=== PATIENT | female | born 1935 | race Caucasian/White ===

== ENCOUNTER 2017-03-10 19:45 | Emergency (ER) | payer MEDICARE ==
[~2017-03-10] VITALS: Ht 167.6 cm; Wt 67.4 kg
[~2017-03-10 19:45] MED LIST: LEVA1NEB19 INH
[2017-03-10 19:51] VITALS: Ht 167.6 cm; Wt 67.4 kg
[2017-03-10] MEDS ORDERED: SODIUM CHLORIDE 0.9% 1000ML 250 ML IV STA (20:40)
[2017-03-10] MEDS ORDERED: SODIUM CHLORIDE 0.9% 1000ML 1,000 ML IV STA (20:40)
[2017-03-10 21:11] LABS: BASO % 0.5 %; BASO ABS # 0.03 K/uL (0-0.2); COMPLETE YES; HEMATOCRIT 37.5 % (37-47); IG% 0.2 %; LYMPH % 31.1 %; LYMPH ABS # 1.84 K/uL (1.2-3.4); MEAN CELL VOLUME 86.6 fL (80-100); MEAN CORPUSCULAR HEMOGLOBIN 28.9 pg (25-34); MEAN CORPUSCULAR HGB CONC 33.3 g/dl (32-36); MEAN PLATELET VOLUME 9.7 fL (7.4-10.4); MONO % 9.5 %; NEUT % 58.7 %; PLATELET COUNT 194 K/uL (130-400); RED BLOOD COUNT 4.33 M/uL (4.2-5.4); WHITE BLOOD COUNT 5.92 K/uL (4.8-10.8)
--- NOTE | 2017-03-10 21:11 | DIAGNOSTIC IMAGING REPORT ---
CHEST ONE VIEW PORTABLE HISTORY: Atypical CHEST PAIN COMPARISON: Chest 09/12/2015. FINDINGS: The lungs are clear. Cardiac silhouette is normal in size. No pleural effusions. No pneumothorax. IMPRESSION: No acute process. Electronically signed by: Dmitri Serrato M.D. 03/10/2017 9:10 PM Dictated Date/Time: 03/10/2017 9:09 PM
[2017-03-10 21:25] LABS: INR 1.1 (0.9-1.1); PARTIAL THROMBOPLASTIN RATIO 1.2; PROTHROMBIN TIME (PATIENT) 11.8 SECONDS (9.0-12.0)
[2017-03-10 21:30] LABS: BUN/CREATININE RATIO 15.6 (10-20); CREATININE 0.91 mg/dl (0.60-1.20); POTASSIUM 4.1 mmol/L (3.5-5.1)
[2017-03-10 21:49] VITALS: TEMP 37.5
[2017-03-10 21:55] LABS: CALCIUM 8.3 mg/dl (8.5-10.1)
[2017-03-10 22:27] LABS: URINE APPEARANCE CLEAR (CLEAR); URINE BILIRUBIN NEG (NEG); URINE COLOR YELLOW; URINE NITRITE NEG (NEG); URINE SPECIFIC GRAVITY 1.011 (1.000-1.030); UROBILINOGEN NEG (NEG)
[2017-03-10 22:30] LABS: MANUAL MICROSCOPIC REQUIRED? NO; REVIEW REQ? NO
[2017-03-10 22:52] VITALS: BP 111/75; PULSE 93; O2SAT 95
--- NOTE | 2017-03-11 00:06 | EMERGENCY ROOM VISIT NOTE ---
History Report prepared by Dianne: Kylah Sanchez Under the Supervision of: Dr. Alli Nagy M.D. First contact with patient: 20:19 Chief Complaint: DIARRHEA Stated Complaint: DIARRHEA,FAST HEART BEAT, COLD History of Present Illness The patient is an 81 year old female who presents to the Emergency Room with complaints of persistent diarrhea starting 1 week ago. The history is given by the due to the patient's memory problems. A couple weeks ago she had nausea and vomiting for 1 week. That resolved, but she started having diarrhea. She has taken Maalox and Pepto Bismol to no significant relief. She has been having a fast heart rate in the morning along with a headache in the forehead. No headache or pain at present. 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 She denies any abdominal pain, melena, hematochezia, or cough. She did not notice any fever. She was on antibiotics several months ago for cough. She has not had any sick contacts. She has not had C diff before. Source of History: patient, spouse/significant other Onset: 1 week ago Position: other (global) Quality: other (diarrhea) Timing: other (persistent) Associated Symptoms: + headache, + nausea, + vomiting, No abdominal pain, No cough, No hematochezia, No melena Note: Pt has had fast heart rate, ulcer inside cheek. Review of Systems See HPI for pertinent positives & negatives. A total of 10 systems reviewed and were otherwise negative. Past Medical & Surgical Medical Problems: (1) abscess on colon (2) Bowel obstruction (3) Bowel obstruction (4) Shingles Surgical Problems: (1) H/O: hysterectomy (2) History of appendectomy (3) History of cataract surgery (4) History of cholecystectomy Old medical records were reviewed. Nurse's notes were reviewed and I agree with. History was primarily obtained from the . Bowel obstruction in the past Valvular heart disease Family History Gallbladder disease Seizures Social History Smoking Status: Former Smoker Alcohol Use: none Drug Use: none Marital Status: Housing Status: lives with significant other Occupation Status: retired Current/Historical Medications No Active Prescriptions or Reported Meds Allergies Coded Allergies: Hydromorphone (Unverified Adverse Reaction, Mild, 0, 03/10/17) confusion Morphine (Verified Adverse Reaction, Mild, HALUCINATES, 03/10/17) Physical Exam Vital Signs Date Time Temp Pulse Resp B/P Pulse Ox O2 Delivery O2 Flow Rate FiO2 03/10/17 22:52 93 16 111/75 95 Room Air 03/10/17 21:49 37.5 96 20 110/68 93 Room Air 03/10/17 19:51 38.5 94 18 132/60 95 Room Air Physical Exam General: Non ill appearing older female, no acute distress, answers questions appropriately, has baseline dementia, breathing comfortably on room air. Normal speech HEENT: Normal cephalic atraumatic. Pupils are equal round and reactive to light. Extraocular movements are intact. Oropharynx is pink with moist mucous membranes. No swelling of the mouth lips or tongue. Neck: Supple with a midline trachea. No meningeal signs or stiffness, no JVD or bruits. No Stridor. Chest: Clear to auscultation bilaterally. No wheezes or rhonchi. No increased work of breathing. Heart: regular rate and rhythm. 3/6 systolic murmur. Abdomen: Soft nontender, nondistended without rebound guarding or rigidity. Well healing surgical scar, no evidence of hernia, no redness or warmth. Extremities: No cyanosis clubbing or edema. No calf tenderness or assymetry Spine/Back. Non tender to palpation. No CVA tenderness Skin: Good turgor without rashes. Neurologic exam: Cranial nerves two through 12 are intact. Motor and sensation are intact and symmetrical throughout. Medical Decision & Procedures ER Provider Diagnostic Interpretation: X-ray results as stated below per interpretation by me and the radiologist: CHEST ONE VIEW PORTABLE HISTORY: Atypical CHEST PAIN COMPARISON: Chest 09/12/2015. FINDINGS: The lungs are clear. Cardiac silhouette is normal in size. No pleural effusions. No pneumothorax. IMPRESSION: No acute process. Electronically signed by: Dmitri Serrato M.D. 03/10/2017 9:10 PM Dictated Date/Time: 03/10/2017 9:09 PM Laboratory Results 03/10/17 20:55 Red Blood Count 4.33, Mean Corpuscular Volume 86.6, Mean Corpuscular Hemoglobin 28.9, Mean Corpuscular Hemoglobin Concent 33.3, Mean Platelet Volume 9.7, Neutrophils (%) (Auto) 58.7, Lymphocytes (%) (Auto) 31.1, Monocytes (%) (Auto) 9.5, Eosinophils (%) (Auto) 0.0, Basophils (%) (Auto) 0.5, Neutrophils # (Auto) 3.48, Lymphocytes # (Auto) 1.84, Monocytes # (Auto) 0.56, Eosinophils # (Auto) 0.00, Basophils # (Auto) 0.03 03/10/17 20:55 Test 03/10/17 20:55 03/10/17 21:07 03/10/17 21:09 03/10/17 22:10 White Blood Count 5.92 K/uL (4.8-10.8) Red Blood Count 4.33 M/uL (4.2-5.4) Hemoglobin 12.5 g/dL (12.0-16.0) Hematocrit 37.5 % (37-47) Mean Corpuscular Volume 86.6 fL (80-100) Mean Corpuscular Hemoglobin 28.9 pg (25-34) Mean Corpuscular Hemoglobin Concent 33.3 g/dl (32-36) Platelet Count 194 K/uL (130-400) Mean Platelet Volume 9.7 fL (7.4-10.4) Neutrophils (%) (Auto) 58.7 % Lymphocytes (%) (Auto) 31.1 % Monocytes (%) (Auto) 9.5 % Eosinophils (%) (Auto) 0.0 % Basophils (%) (Auto) 0.5 % Neutrophils # (Auto) 3.48 K/uL (1.4-6.5) Lymphocytes # (Auto) 1.84 K/uL (1.2-3.4) Monocytes # (Auto) 0.56 K/uL (0.11-0.59) Eosinophils # (Auto) 0.00 K/uL (0-0.5) Basophils # (Auto) 0.03 K/uL (0-0.2) RDW Standard Deviation 44.5 fL (36.4-46.3) RDW Coefficient of Variation 14.0 % (11.5-14.5) Immature Granulocyte % (Auto) 0.2 % Immature Granulocyte # (Auto) 0.01 K/uL (0.00-0.02) Prothrombin Time 11.8 SECONDS (9.0-12.0) Prothromb Time International Ratio 1.1 (0.9-1.1) Activated Partial Thromboplast Time 32.3 SECONDS (21.0-31.0) Partial Thromboplastin Ratio 1.2 Anion Gap 7.0 mmol/L (3-11) Est Creatinine Clear Calc Drug Dose 43.8 ml/min Estimated GFR () 67.6 Estimated GFR (Non- 58.3 BUN/Creatinine Ratio 15.6 (10-20) Calcium Level 8.3 mg/dl (8.5-10.1) Total Bilirubin 0.5 mg/dl (0.2-1) Direct Bilirubin 0.1 mg/dl (0-0.2) Aspartate Amino Transf (AST/SGOT) 41 U/L (15-37) Alanine Aminotransferase (ALT/SGPT) 34 U/L (12-78) Alkaline Phosphatase 150 U/L (45-117) Total Protein 7.2 gm/dl (6.4-8.2) Albumin 3.3 gm/dl (3.4-5.0) Lipase 200 U/L (73-393) Bedside Lactic Acid Venous 1.19 mmol/L (0.90-1.70) Bedside Troponin I 0.000 ng/ml (0-0.045) Urine Color YELLOW Urine Appearance CLEAR (CLEAR) Urine pH 7.0 (4.5-7.5) Urine Specific [place] 1.011 (1.000-1.030) Urine Protein NEG (NEG) Urine Glucose (UA) NEG (NEG) Urine Ketones NEG (NEG) Urine Occult Blood NEG (NEG) Urine Nitrite NEG (NEG) Urine Bilirubin NEG (NEG) Urine Urobilinogen NEG (NEG) Urine Leukocyte Esterase NEG (NEG) Laboratory studies as stated above per my review. Medications Administered Medications (Trade) Dose Ordered Sig/Priscilla Route Start Time Stop Time Status Last Admin Dose Admin Sodium Chloride 250 ml @ 999 mls/hr Q16M STAT IV 03/10/17 20:40 03/10/17 20:55 DC 03/10/17 20:40 999 MLS/HR Sodium Chloride (Nss 1000ml) 1,000 ml @ 100 mls/hr Q10H STAT IV 03/10/17 20:40 03/10/17 23:53 DC 03/10/17 20:40 100 MLS/HR ED Course 2028: Past medical records reviewed. The patient was evaluated in room B5, and a complete history and physical examination were performed. 2039: NSS 1000 ml @ 100 mls/hr IV, NSS 250 ml @ 999 mls/hr IV. 2126: I reevaluated the patient. She is resting comfortably. 2204: I reevaluated the patient. She states that she feels fine. She is asking to go home. I discussed the results with the patient and her . I offered admission, but both the patient and her declined admission. Case management are setting up an appointment for her tomorrow. I will discussed the the [facility]ist permaculture contractor. 2210: I discussed the patient's case with Dr. Haro, [facility]. She has been notified that the patient would not like to stay. She will write up a note for the patient's appointment with her PCP tomorrow regarding the visit today. 2249: Upon reevaluation, the patient is resting comfortably. I discussed the results and treatment plan with her and her . They verbalized agreement of the treatment plan. The patient was discharged home. Medical Decision Differentials include, but are not limited to; C diff, pneumonia, sepsis, UTI, endocarditis, electrolyte or metabolic abnormality. This patient comes in as described above. She was placed in room B5. She is here for treatment and evaluation diarrhea. It was noted she had a fever although the said as far as he no she has not had one at home. She looks well her abdomen is benign she's no focal complaints. IV access established is gently hydrated normal saline. Chest x-ray does not suggest congestive heart failure, pneumonia, or pneumothorax. Urinalysis does not suggest UTI with a culture pending. EKG does not suggest acute coronary syndrome or arrhythmia. She has no electrolyte or metabolic abnormalities. She has no white count or elevation of a lactic acid to suggest significant infection. I did order stool studies however despite being here for several hours she was unable to give a stool specimen. She looks well at may be this is more of a viral illnesses could possibly be C. difficile or a colitis. Her abdomen was completely benign and nontender, her only complaint has been diarrhea. I do not think is likely endocarditis however she does have a murmur although apparently it is old. Cultures have been obtained of her blood. I talked to the patient and her about admission for observation and they' re adamantly against this. She says he feels well and just wants to go home. Apparently she does not do well in the hospital. I think that it is reasonable to have close follow-up. I had her casey saw operator talked to the family and they' re going to get her in with her doctor tomorrow. I also talked to Dr. Haro the [facility] hospitalist and she is going to send note to the patient's Dr. Kamilah Partida as well to ensure the patient gets close follow-up and they follow -up on the cultures. I encouraged the patient and her return to the ER if: Worsening of symptoms, not acting like self, any new problems or concerns. They're happy with the plan and will be discharged. Consults Time Called: [phone] Consulting Physician: Dr. Haro, [facility] Returned Call: [phone] I discussed the patient's case with her. She has been notified that the patient would not like to stay. She will write up a note for the patient's appointment with her PCP tomorrow regarding the visit today. Impression Primary Impression: Diarrhea Additional Impression: Febrile illness Scribe Attestation The scribe's documentation has been prepared under my direction and personally reviewed by me in its entirety. I confirm that the note above accurately reflects all work, treatment, procedures, and medical decision making performed by me. Departure Information Dispostion Home / Self-Care Prescriptions No Active Prescriptions or Reported Meds Referrals Kamilah Partida M.D. (PCP) Forms HOME CARE DOCUMENTATION FORM, IMPORTANT VISIT INFORMATION, WORK / SCHOOL INSTRUCTIONS Patient Instructions My [facility] Additional Instructions Rest. Drink plenty of fluids. Return if: Worsening of symptoms, abdominal pain, not acting like self, persistent fever, any new problems or concerns. Follow-up with your doctor tomorrow for recheck. Problem Qualifiers
== END 2017-03-10 22:56 | disposition home or self-care (01) ==
LOC: C.EDB 19:46
DX: R19.7 Diarrhea, unspecified (principal); R50.9 Fever, unspecified; K56.60 Unspecified intestinal obstruction; Z86.19 Personal history of other infectious and parasitic diseases; Z90.710 Acquired absence of both cervix and uterus; Z90.49 Acquired absence of other specified parts of digestive tract; Z98.49 Cataract extraction status, unspecified eye; Z98.890 Other specified postprocedural states; Z87.891 Personal history of nicotine dependence; Z88.5 Allergy status to narcotic agent

== ENCOUNTER 2022-09-01 18:50 | Inpatient (IN) ==
--- NOTE | 2022-09-01 19:03 | Emergency Department Note ---
History of Present Illness General Chief complaint: Hip Pain Time Seen by Provider: 09/01/22 18:54 Source: patient, EMS (I did talk to the EMS provider) and old records reviewed Mode of arrival: ambulatory Limitations: no limitations History of Present Illness This patient is 87-year-old female with history of dementia had a witnessed grou nd-level fall she was walking with a walker and tripped. There is no head trauma or loss of conscious she laid on her right hip his right hip pain EMS did give her 50 mics of fentanyl and did not notice any shortening or rotation but that seems of helped her pain she denies any pain anywhere else. No recent illness known. No blood thinners. no reported syncope Home Medications Medication Instructions Recorded Confirmed Type levocetirizine 5 mg tablet (Xyzal) 5 mg PO DAILY #30 tabs 05/06/22 09/01/22 Rx lansoprazole 30 mg capsule,delayed 30 mg PO DAILY #90 caps 08/18/22 09/01/22 Rx release (Prevacid) Allergies Allergy/AdvReac Type Severity Reaction Status Date / Time hydromorphone AdvReac Mild 0 Unverified 09/01/22 19:28 morphine AdvReac Mild HALUCINATES Verified 09/01/22 19:28 Past Med/Surg History Medical History Allergic rhinitis Aortic valve stenosis Chronic kidney disease, stage 3 (moderate) Dementia Diabetes mellitus, type 2 Dyslipidemia GERD (gastroesophageal reflux disease) Irritable bowel syndrome with constipation Osteoarthritis Urinary incontinence Surgical History H/O hemorrhoidectomy H/O: hysterectomy History of appendectomy History of cataract surgery (2007) b/l eyes History of cholecystectomy History of colostomy reversal (2000) S/P colectomy (1997) secondary to perforation from divericulitis S/P repair of ventral hernia S/P tubal ligation Family History Father No problems noted. Mother Hypertension Stroke Dementia Brother Hypertension Diabetes Sister Diabetes Denies family history of Ovarian cancer Prostate cancer Myocardial infarction Breast cancer Colorectal cancer Social History Smoking Status: Former smoker Tobacco Type: Cigarettes packs per day: 0.5; Cigarettes Per Day: 6 cig/day; Second Hand Exposure: No; Hx Alcohol Use: Yes Alcohol type: other Hx Substance Use: No Preferred Language: Hebrew Communication Ability: Impaired Visual Impairment: No Limitations Hearing Ability: Normal Account General Manager Required: No Beliefs That Will Affect Care: Sabianism Sabianism Beliefs: alevism marital status: Current Living Situation: Spouse current occupational status: retired How many Children do You have: 2 Feels Safe at Home: Yes Diet Comment: regular caffeine: Yes during the past year weight has: remained stable Dental Care, Regularly: No Physical Activity Frequency: 3-4 Times per Week Seatbelt Use: always Sunscreen Use: No Assistive Devices: None Review of Systems A total of 10 systems reviewed and were otherwise negative Physical Exam Vital Signs Vital Signs - 24 hr 09/01/22 18:36 09/01/22 18:36 09/01/22 18:59 Temperature 36.8 C Temperature Source Oral Pulse Rate 80 77 Pulse Rate [Apical] 81 Pulse Rhythm Regular Regular Pulse Rhythm [Apical] Regular Pulse Strength Normal Pulse Strength [Apical] Normal Respiratory Rate 19 19 20 Respiratory Effort / Characteristics Non-Labored Non-Labored Respiratory Depth Normal Normal Respiratory Pattern Regular Regular Blood Pressure 170/98 H Blood Pressure [Right Arm] Blood Pressure Mean 122 Blood Pressure Mean [Right Arm] Blood Pressure Position Lying Blood Pressure Position [Right Arm] Pulse Oximetry 95 95 95 Oxygen Delivery Method Room Air Room Air Room Air Sepsis Recent Fever Within 48 Hours No Sepsis New/Unexplained Change in Mental Status N/A Sepsis Action Taken by Nursing No Action Required 09/01/22 20:36 Temperature Temperature Source Pulse Rate Pulse Rate [Apical] 95 H Pulse Rhythm Pulse Rhythm [Apical] Regular Pulse Strength Pulse Strength [Apical] Normal Respiratory Rate 19 Respiratory Effort / Characteristics Non-Labored Respiratory Depth Normal Respiratory Pattern Regular Blood Pressure Blood Pressure [Right Arm] 168/98 H Blood Pressure Mean Blood Pressure Mean [Right Arm] 121 Blood Pressure Position Blood Pressure Position [Right Arm] Lying Pulse Oximetry 96 Oxygen Delivery Method Room Air Sepsis Recent Fever Within 48 Hours Sepsis New/Unexplained Change in Mental Status Sepsis Action Taken by Nursing General: Well developed well nourished older female who has baseline dementia and appears in no acute distress, breathing comfortably on room air. Normal speech HEENT: Normal cephalic atraumatic. Pupils are equal round and reactive to light. Extraocular movements are intact. Oropharynx is pink with moist mucous membranes. No swelling of the mouth lips or tongue. Neck: Supple with a midline trachea. No meningeal signs or stiffness, no JVD or bruits. No Stridor. Chest: Clear to auscultation bilaterally. No wheezes or rhonchi. No increased work of breathing. Heart: Regular rate and rhythm without murmurs or gallops. Abdomen: Soft nontender, nondistended without rebound guarding or rigidity. Extremities: No cyanosis clubbing or edema. No calf tenderness or assymetry. No shortening or deformity or rotation of the right hip. There is some tenderness when I move it and she points to the right lateral hip. Distally she has normal motor and sensation and pulses. There is no redness or warmth or bruising. Spine/Back. Non tender to palpation. No CVA tenderness Skin: Good turgor without rashes. Neurologic exam: Cranial nerves two through 12 are intact. Motor and sensation are intact and symmetrical throughout. Course Administered Medications Senna/Docusate Sodium (Docusate Sodium/Senna 50/8.6mg Tab) 2 tab PO HS REFUGIO Stop: 10/02/22 00:11 Last Admin: 09/02/22 01:07 Dose: 2 tab Documented By: GCB Discontinued Medications Acetaminophen (Ofirmev) 1,000 mg in 100 mls @ 400 mls/hr IV NOW STA Stop: 09/01/22 21:43 Last Infusion: 09/01/22 23:09 Dose: 0 mls/hr Documented By: Admin: 09/01/22 21:53 Dose: 400 mls/hr Documented By: FEDERICO Lorazepam 0.5 mg/ Syringe 0.5 mls @ 2 mls/min IV NOW STA Stop: 09/02/22 00:59 Last Admin: 09/02/22 01:06 Dose: 2 mls/min Documented By: MARCIO Ketorolac Tromethamine (Ketorolac Tromethamine 15 Mg/Ml Vial) 10 mg IV NOW ONE Stop: 09/01/22 19:28 Last Admin: 09/01/22 19:40 Dose: 10 mg Documented By: RDD Lorazepam (Lorazepam 1 Mg/1 Ml Syr) 0.5 mg IV NOW STA; Protocol Stop: 09/01/22 19:46 Last Admin: 09/01/22 19:48 Dose: 0.5 mg Documented By: FEDERICO Tramadol HCl (Tramadol Hcl 50 Mg Tablet) 50 mg PO NOW STA Stop: 09/01/22 21:30 Last Admin: 09/01/22 21:53 Dose: 50 mg Documented By: FEDERICO Medical Decision Making Differential Diagnosis Hip fracture, hip dislocation, contusion, fall, electrolyte or metabolic abnormality, cardiac disease Medical Records Attestation: I reviewed the patient's medical records. Home Medications Current Medication List: was personally reviewed by me Laboratory Data Attestation: I reviewed the patient's lab results. Result diagrams: 09/01/22 19:04 09/01/22 19:04 Lab Results 09/01/22 09/01/22 09/01/22 Range/Units 19:04 19:04 19:04 WBC 8.51 (4.8-10.8) K/ul RBC 4.74 (3.93-5.22) M/uL Hgb 13.5 (12.0-16.0) g/dl Hct 42.2 (34.1-44.9) % MCV 89.0 (80.0-100.0) fL MCH 28.5 (25.0-34.0) pg MCHC 32.0 (32.0-36.0) g/dL RDW Std Deviation 44.1 (36.4-46.3) fL RDW Coeff of Bhaskar 13.5 (11.5-14.5) % Plt Count 212 (130-400) K/uL MPV 10.1 (9.4-12.3) fL Immature Gran % (Auto) 0.5 % Neut % (Auto) 66.3 % Lymph % (Auto) 24.1 % [place] % (Auto) 7.8 % Eos % (Auto) 0.6 % Baso % (Auto) 0.7 % Neut # (Auto) 5.65 (1.4-6.5) K/uL Lymph # (Auto) 2.05 (1.2-3.4) K/uL [place] # (Auto) 0.66 (0.24-0.82) K/uL Eos # (Auto) 0.05 (0-0.50) K/uL Baso # (Auto) 0.06 (0-0.2) K/uL Immature Gran # (Auto) 0.04 H (0.00-0.02) K/uL PT 10.9 (9.0-12.0) Seconds INR 1.0 (0.9-1.1) APTT 26.4 (21.0-31.0) Seconds PTT Ratio 1.0 Sodium 135 L (136-145) mmol/L Potassium 4.0 (3.5-5.1) mmol/L Chloride 100 (98-107) mmol/L Carbon Dioxide 30 (21-32) mmol/L Anion Gap 5 (3-11) BUN 15 (6-23) mg/dl Creatinine 0.96 (0.6-1.2) mg/dl Est Cr Clr Drug Dosing Not Reportable Est GFR ( Amer) 60.8 ml/min Est GFR (Non-Af Amer) 52.4 ml/min BUN/Creatinine Ratio 15.6 (10-20) Glucose 196 H (70-99(Fasting)) mg/dl Calcium 8.8 (8.5-10.1) mg/dl Total Bilirubin 0.5 (0.2-1.0) mg/dl AST 23 (13-39) U/L ALT 14 (7-52) U/L Alkaline Phosphatase 159 H (34-104) U/L Troponin I High Sens 13.9 (0-14) pg/ml Total Protein 7.4 (6.0-8.3) gm/dl Albumin 3.8 (3.4-5.0) gm/dl Globulin 3.6 (2.5-4.0) gm/dl Albumin/Globulin Ratio 1.1 (0.9-2) Lipase 28 (11-82) U/L SARS-CoV-2, RNA, NAAT (NEGATIVE) 09/01/22 Range/Units 20:49 WBC (4.8-10.8) K/ul RBC (3.93-5.22) M/uL Hgb (12.0-16.0) g/dl Hct (34.1-44.9) % MCV (80.0-100.0) fL MCH (25.0-34.0) pg MCHC (32.0-36.0) g/dL RDW Std Deviation (36.4-46.3) fL RDW Coeff of Bhaskar (11.5-14.5) % Plt Count (130-400) K/uL MPV (9.4-12.3) fL Immature Gran % (Auto) % Neut % (Auto) % Lymph % (Auto) % [place] % (Auto) % Eos % (Auto) % Baso % (Auto) % Neut # (Auto) (1.4-6.5) K/uL Lymph # (Auto) (1.2-3.4) K/uL [place] # (Auto) (0.24-0.82) K/uL Eos # (Auto) (0-0.50) K/uL Baso # (Auto) (0-0.2) K/uL Immature Gran # (Auto) (0.00-0.02) K/uL PT (9.0-12.0) Seconds INR (0.9-1.1) APTT (21.0-31.0) Seconds PTT Ratio Sodium (136-145) mmol/L Potassium (3.5-5.1) mmol/L Chloride (98-107) mmol/L Carbon Dioxide (21-32) mmol/L Anion Gap (3-11) BUN (6-23) mg/dl Creatinine (0.6-1.2) mg/dl Est Cr Clr Drug Dosing Est GFR ( Amer) ml/min Est GFR (Non-Af Amer) ml/min BUN/Creatinine Ratio (10-20) Glucose (70-99(Fasting)) mg/dl Calcium (8.5-10.1) mg/dl Total Bilirubin (0.2-1.0) mg/dl AST (13-39) U/L ALT (7-52) U/L Alkaline Phosphatase (34-104) U/L Troponin I High Sens (0-14) pg/ml Total Protein (6.0-8.3) gm/dl Albumin (3.4-5.0) gm/dl Globulin (2.5-4.0) gm/dl Albumin/Globulin Ratio (0.9-2) Lipase (11-82) U/L SARS-CoV-2, RNA, NAAT NEGATIVE (NEGATIVE) Imaging Data Attestation: I personally reviewed and interpreted this imaging study as follows: My Impression: X-ray of the right hip and pelvis-there is an intertrochanteric right hip fracture that is minimal displaced Radiologist's Impression: Hip/Pelvis X-Ray 09/01/22 18:59 XR hip RT 2V w pelvis CLINICAL HISTORY: Right hip pain following fall. COMPARISON: CT of the abdomen and pelvis June 24, 2014. FINDINGS: Sacroiliac joints and symphysis pubis are intact. Postoperative findings within the pelvis are incidentally noted. There is an acute mildly distracted intertrochanteric fracture of the right femur. No additional acute fractures are identified on this exam. IMPRESSION: Acute mildly distracted intertrochanteric fracture of the right femur. ACT 112: Negative or not required by law. Electronically signed by: Malik Kim M.D. 09/01/2022 8:21 PM ECG Data Attestation: I personally reviewed and interpreted this ECG as follows: Indication: + weakness Rate (beats per minute): 69 Rhythm: + normal sinus ECG Intervals/blocks: + Normal QRS, + Normal QT and + Normal [place] ECG [place]: + Left axis deviation ECG ST segments: + Normal ST segments ECG Findings: no PACs or no PVCs Comparison ECG Date: from (09/12/15) Change: the following changes noted (PVCs are now absent) MDM Narrative This patient comes in as described above. She was placed on a radio control crane operator in room a 12. She was brought in by EMS after having what sounds like a mechanical fall. She has pain in the right hip is not shortened or deformed. I did order x-rays of the hip and pelvis, IV access was established, EKG was obtained and has no significant electrolyte metabolic abnormalities. COVID test was negative. The patient did become somewhat agitated was given small dose of Ativan 0.5 mg IV and was resting comfortably she will be admitted for further treatment evaluation of her hip fracture. I have consulted the [facility] hospitalist to see her for these measures. Continuous cardiac monitoring: Orders placed in EMR for continuous cardiac monitoring. Upon my interpretation patient noted to be in normal sinus rhythm at a rate of 85. Impression & Plan Closed hip fracture, Dementia, Fall, Lab test negative for COVID-19 virus Discharge Plan Visit Data Chief Complaint: Hip Pain ED Provider: Alli Nagy Discharge Problem: Closed hip fracture, Dementia, Fall, Lab test negative for COVID-19 virus Patient Disposition: Admitted As Inpatient Discharge Instructions Interventions: ED Discharge Assessment Last Done: 09/01/22 23:18
[2022-09-01 19:12] LABS: Basophils # (auto) 0.06 K/uL (0-0.2); Basophils % (auto) 0.7 %; Eosinophils # (auto) 0.05 K/uL (0-0.50); Eosinophils % (auto) 0.6 %; Hematocrit (blood only) 42.2 % (34.1-44.9); Hemoglobin 13.5 g/dl (12.0-16.0); Immature Granulocytes # (auto) 0.04 K/uL (0.00-0.02); Immature Granulocytes % (auto) 0.5 %; Lymphocytes # (auto) 2.05 K/uL (1.2-3.4); Lymphocytes % (auto) 24.1 %; Mean Corpuscular Hemoglobin 28.5 pg (25.0-34.0); Mean Platelet Volume 10.1 fL (9.4-12.3); Monocytes # (auto) 0.66 K/uL (0.24-0.82); Monocytes % (auto) 7.8 %; Neutrophils # (auto) 5.65 K/uL (1.4-6.5); Neutrophils % (auto) 66.3 %; Platelet Count 212 K/uL (130-400); RDW Coefficient of Variation 13.5 % (11.5-14.5); RDW Standard Deviation 44.1 fL (36.4-46.3); Red Blood Count 4.74 M/uL (3.93-5.22); White Blood Count 8.51 K/ul (4.8-10.8)
[2022-09-01] MEDS ORDERED: KETOROLAC TROMETHAMINE 15 MG/ML VIAL IV ONE (19:27)
[2022-09-01 19:28] LABS: Partial Thromboplastin Time 26.4 Seconds (21.0-31.0); Prothrombin Time 10.9 Seconds (9.0-12.0)
[2022-09-01 19:44] LABS: Alanine Aminotransferase 14 U/L (7-52); Albumin Globulin Ratio 1.1 (0.9-2); Albumin Level 3.8 gm/dl (3.4-5.0); Alkaline Phosphatase 159 U/L (34-104); Anion Gap 5 (3-11); Aspartate Aminotransferase 23 U/L (13-39); BUN Creatinine Ratio 15.6 (10-20); Bilirubin,Total 0.5 mg/dl (0.2-1.0); Blood Urea Nitrogen 15 mg/dl (6-23); Calcium 8.8 mg/dl (8.5-10.1); Carbon Dioxide 30 mmol/L (21-32); Chloride 100 mmol/L (98-107); Est GFR (African American) 60.8 ml/min; Est GFR (Non-African American) 52.4 ml/min; Globulin 3.6 gm/dl (2.5-4.0); Glucose 196 mg/dl (70-99(Fasting)); Lipase 28 U/L (11-82); Sodium 135 mmol/L (136-145); Total Protein 7.4 gm/dl (6.0-8.3)
[2022-09-01] MEDS ORDERED: LORazepam 2 MG/1 ML VIAL IV STA (19:45)
[2022-09-01 19:48] LABS: Troponin I High Sensitivity 13.9 pg/ml (0-14)
--- NOTE | 2022-09-01 20:22 | XRay Report ---
XR hip RT 2V w pelvis CLINICAL HISTORY: Right hip pain following fall. COMPARISON: CT of the abdomen and pelvis June 24, 2014. FINDINGS: Sacroiliac joints and symphysis pubis are intact. Postoperative findings within the pelvis are incidentally noted. There is an acute mildly distracted intertrochanteric fracture of the right femur. No additional acute fractures are identified on this exam. IMPRESSION: Acute mildly distracted intertrochanteric fracture of the right femur. ACT 112: Negative or not required by law. Electronically signed by: Malik Kim M.D. 09/01/2022 8:21 PM
--- NOTE | 2022-09-01 20:51 | History & Physical Report ---
Date of Service September 01, 2022 Assessment & Plan (1) Closed right hip fracture: Plan: 87yo female with history of dementia presenting with right intertrochanteric hip fracture following a ground level fall. Pain is well controlled at present. NV intact. -Admit to medical -NPO after midnight -Orthopedic Surgery consultation appreciated -Tylenol PRN mild pain -Tramadol PRN moderate or severe pain -Zofran PRN -Bowel regimen with Dulcolax, Senna PRN (2) GERD (gastroesophageal reflux disease): Plan: Chronic -Protonix 40mg po daily while admitted (3) Dementia: Plan: Patient was previously on medication for dementia. Presently is not taking anything -Frequent orientation -Avoidance of potentially delirium-inducing agents -Monitor F/E/N - LR at 80mL/hr, electrolytes WNL, NPO after midnight Ppx - SCDs Code - Full Code per discussion with - no prolonged heroics Dispo - Admit to medical History of Present Illness Chief Complaint: right hip fracture Primary Care Provider: DO Lorraine Adhikari Coretta is an 87yo female with history of CKD, DM, HLP and Dementia presenting with right hip fracture. Patient lives with her who provides most of the history. They were getting out of the car today and patient lost her balance and fell onto her right hip. She was having significant discomfort. No LOC or trauma to the head or neck. No additional symptoms - patient specifically denies chest pain, cough, SOB or abdominal pain. In the ER she is afebrile, hypertensive otherwise HD stable. X-ray of the right hip confirms acute mildly distracted intertrochanteric fracture Pain is presently well controlled. ER Course: Toradol, Ativan, Tylenol, Tramadol Allergies Allergy/AdvReac Type Severity Reaction Status Date / Time hydromorphone AdvReac Mild 0 Unverified 09/01/22 19:28 morphine AdvReac Mild HALUCINATES Verified 09/01/22 19:28 Home Medications Medication Instructions Recorded Confirmed Type levocetirizine 5 mg tablet (Xyzal) 5 mg PO DAILY #30 tabs 05/06/22 09/01/22 Rx lansoprazole 30 mg capsule,delayed 30 mg PO DAILY #90 caps 08/18/22 09/01/22 Rx release (Prevacid) Past Med/Surg History Medical History Allergic rhinitis Aortic valve stenosis Chronic kidney disease, stage 3 (moderate) Dementia Diabetes mellitus, type 2 Dyslipidemia GERD (gastroesophageal reflux disease) Irritable bowel syndrome with constipation Osteoarthritis Urinary incontinence Surgical History H/O hemorrhoidectomy H/O: hysterectomy History of appendectomy History of cataract surgery (2007) b/l eyes History of cholecystectomy History of colostomy reversal (2000) S/P colectomy (1997) secondary to perforation from divericulitis S/P repair of ventral hernia S/P tubal ligation Family History Father No problems noted. Mother Hypertension Stroke Dementia Brother Hypertension Diabetes Sister Diabetes Denies family history of Ovarian cancer Prostate cancer Myocardial infarction Breast cancer Colorectal cancer Social History Smoking Status: Unknown if ever smoked Tobacco Type: Cigarettes packs per day: 0.5; Second Hand Exposure: No; Hx Alcohol Use: No Hx Substance Use: No Preferred Language: [place] Verdean Visual Impairment: No Limitations Hearing Ability: Normal Director Of Casework Required: No Beliefs That Will Affect Care: None marital status: Current Living Situation: Spouse current occupational status: retired How many Children do You have: 2 Feels Safe at Home: Yes Diet Comment: regular caffeine: Yes during the past year weight has: remained stable Dental Care, Regularly: No Physical Activity Frequency: 3-4 Times per Week Seatbelt Use: always Sunscreen Use: No Review of Systems Review of Systems: All systems reviewed & are unremarkable except as noted in HPI & below Physical Exam Physical Exam: General: patient resting comfortably, NAD, non-toxic in appearance, pleasantly demented Skin: warm, dry, intact, no rashes or lesions, no bruising HEENT: NC/AT, PERRL, EOMI, anicteric sclera, conjunctiva without injection, external ear normal to inspection and nontender, nares patent, moist mucus membranes, dentition intact, no oropharyngeal lesions, neck supple, trachea midline, no LAD, no thyromegaly, no JVD Heart: +S1/S2, regular, 3/6 ADAN at right 2nd ICS with radiation across precordium Lungs: equal air entry bilaterally, no rales/rhonchi/wheezes Abd: +BS, soft, NT/ND, no masses/organomegaly/ascites Ext: warm, 2+ pulses in UE/LE bilaterally, no clubbing/cyanosis or edema Neuro: moving all extremities, speech clear, no facial droop Results & Data Results & Data ([facility]) Vital Signs (Past 12 Hours) Vital Signs Temp Pulse Pulse Resp BP Pulse Ox O2 Del Method 09/01/22 18:59 77 20 95 Room Air 09/01/22 18:36 81 19 95 Room Air 09/01/22 18:36 36.8 C 80 19 170/98 H 95 Room Air Laboratory Results Laboratory Results WBC 8.51 K/ul (4.8-10.8) 09/01/22 19:04 RBC 4.74 M/uL (3.93-5.22) 09/01/22 19:04 Hgb 13.5 g/dl (12.0-16.0) 09/01/22 19:04 Hct 42.2 % (34.1-44.9) 09/01/22 19:04 MCV 89.0 fL (80.0-100.0) 09/01/22 19:04 MCH 28.5 pg (25.0-34.0) 09/01/22 19:04 MCHC 32.0 g/dL (32.0-36.0) 09/01/22 19:04 RDW Std Deviation 44.1 fL (36.4-46.3) 09/01/22 19:04 RDW Coeff of Bhaskar 13.5 % (11.5-14.5) 09/01/22 19:04 Plt Count 212 K/uL (130-400) 09/01/22 19:04 MPV 10.1 fL (9.4-12.3) 09/01/22 19:04 Immature Gran % (Auto) 0.5 % 09/01/22 19:04 Neut % (Auto) 66.3 % 09/01/22 19:04 Lymph % (Auto) 24.1 % 09/01/22 19:04 [place] % (Auto) 7.8 % 09/01/22 19:04 Eos % (Auto) 0.6 % 09/01/22 19:04 Baso % (Auto) 0.7 % 09/01/22 19:04 Neut # (Auto) 5.65 K/uL (1.4-6.5) 09/01/22 19:04 Lymph # (Auto) 2.05 K/uL (1.2-3.4) 09/01/22 19:04 [place] # (Auto) 0.66 K/uL (0.24-0.82) 09/01/22 19:04 Eos # (Auto) 0.05 K/uL (0-0.50) 09/01/22 19:04 Baso # (Auto) 0.06 K/uL (0-0.2) 09/01/22 19:04 Immature Gran # (Auto) 0.04 K/uL (0.00-0.02) H 09/01/22 19:04 PT 10.9 Seconds (9.0-12.0) 09/01/22 19:04 INR 1.0 (0.9-1.1) 09/01/22 19:04 APTT 26.4 Seconds (21.0-31.0) 09/01/22 19:04 PTT Ratio 1.0 09/01/22 19:04 Sodium 135 mmol/L (136-145) L 09/01/22 19:04 Potassium 4.0 mmol/L (3.5-5.1) 09/01/22 19:04 Chloride 100 mmol/L (98-107) 09/01/22 19:04 Carbon Dioxide 30 mmol/L (21-32) 09/01/22 19:04 Anion Gap 5 (3-11) 09/01/22 19:04 BUN 15 mg/dl (6-23) 09/01/22 19:04 Creatinine 0.96 mg/dl (0.6-1.2) 09/01/22 19:04 Est Cr Clr Drug Dosing Not Reportable 09/01/22 19:04 Est GFR ( Amer) 60.8 ml/min 09/01/22 19:04 Est GFR (Non-Af Amer) 52.4 ml/min 09/01/22 19:04 BUN/Creatinine Ratio 15.6 (10-20) 09/01/22 19:04 Glucose 196 mg/dl (70-99(Fasting)) H 09/01/22 19:04 Calcium 8.8 mg/dl (8.5-10.1) 09/01/22 19:04 Total Bilirubin 0.5 mg/dl (0.2-1.0) 09/01/22 19:04 AST 23 U/L (13-39) 09/01/22 19:04 ALT 14 U/L (7-52) 09/01/22 19:04 Alkaline Phosphatase 159 U/L (34-104) H 09/01/22 19:04 Troponin I High Sens 13.9 pg/ml (0-14) 09/01/22 19:04 Total Protein 7.4 gm/dl (6.0-8.3) 09/01/22 19:04 Albumin 3.8 gm/dl (3.4-5.0) 09/01/22 19:04 Globulin 3.6 gm/dl (2.5-4.0) 09/01/22 19:04 Albumin/Globulin Ratio 1.1 (0.9-2) 09/01/22 19:04 Lipase 28 U/L (11-82) 09/01/22 19:04 SARS-CoV-2, RNA, NAAT NEGATIVE (NEGATIVE) 09/01/22 20:49 Impressions Hip/Pelvis X-Ray 09/01/22 18:59 XR hip RT 2V w pelvis CLINICAL HISTORY: Right hip pain following fall. COMPARISON: CT of the abdomen and pelvis June 24, 2014. FINDINGS: Sacroiliac joints and symphysis pubis are intact. Postoperative findings within the pelvis are incidentally noted. There is an acute mildly distracted intertrochanteric fracture of the right femur. No additional acute fractures are identified on this exam. IMPRESSION: Acute mildly distracted intertrochanteric fracture of the right femur. ACT 112: Negative or not required by law. Electronically signed by: Malik Kim M.D. 09/01/2022 8:21 PM PG Care Time/CCT Total # of Minutes Spent Total Time Spent with Patient: Total time spent is greater than 50% in coordination of care (as documented) at patient's floor/unit and/or counseling patient: Coding Level of Care Code 42383 Initial Inpt Care Lvl 2 Diagnoses Closed right hip fracture S72.001A GERD (gastroesophageal reflux disease) K21.9 Dementia F03.90
[2022-09-01] MEDS ORDERED: ACETAMINOPHEN 1,000 MG/100 ML VIAL IV STA (21:29)
[2022-09-01] MEDS ORDERED: traMADol HCL 50 MG TABLET PO STA (21:29)
[2022-09-02] MEDS ORDERED: bisacodyL 10 MG SUPP PR PRN (00:12)
[2022-09-02] MEDS ORDERED: NALOXONE HCL 0.4 MG/1 ML VIAL/CARP IV PRN (00:12)
[2022-09-02] MEDS ORDERED: MAGNESIUM HYDROXIDE SUSP 30 ML UDC PO PRN (00:12)
[2022-09-02] MEDS ORDERED: ONDANSETRON INJ 2 MG/ML 2 ML VIAL IV PRN ×2 (00:12→10:25)
[2022-09-02] MEDS ORDERED: ACETAMINOPHEN 325 MG TAB PO PRN (00:12)
[2022-09-02] MEDS ORDERED: LORazepam 0.5 MG in SYRINGE 0 ML IV STA (00:58)
[2022-09-02] MEDS: DOCUSATE SODIUM/SENNA 50/8.6MG TAB PO SCH ×2 (01:07→20:15)
[2022-09-02] MEDS: LACTATED RINGER'S 1,000 ML IV SCH ×2 (01:20→14:22)
[2022-09-02 03:43] LABS: Hematocrit (blood only) 41.2 % (34.1-44.9); Hemoglobin 13.5 g/dl (12.0-16.0); Mean Corpuscular Hemoglobin 28.9 pg (25.0-34.0); Mean Corpuscular Hgb Conc 32.8 g/dL (32.0-36.0); Mean Corpuscular Volume 88.2 fL (80.0-100.0); Mean Platelet Volume 9.7 fL (9.4-12.3); Platelet Count 187 K/uL (130-400); RDW Coefficient of Variation 13.7 % (11.5-14.5); RDW Standard Deviation 44.3 fL (36.4-46.3); Red Blood Count 4.67 M/uL (3.93-5.22); White Blood Count 10.13 K/ul (4.8-10.8)
[2022-09-02 04:15] LABS: BUN Creatinine Ratio 18.3 (10-20); Calcium 9.2 mg/dl (8.5-10.1); Creatinine Clr Calc Pharmacy 38.4 ml/min; Est GFR (African American) 63.2 ml/min; Est GFR (Non-African American) 54.5 ml/min; Potassium 5.2 mmol/L (3.5-5.1)
[2022-09-02] MEDS: traMADol HCL 50 MG TABLET PO PRN ×3 (05:22→21:38)
--- NOTE | 2022-09-02 06:56 | Orthopedic Consultation ---
Date of Service September 02, 2022 Assessment & Plan (1) Fracture, intertrochanteric, right femur: H&P and xrays reviewed. Surgery recommended: Closed reduction and trochanteric fixation nail. NPO for surgery today. Will discuss w patient and family. Full consult to follow History of Present Illness Reason for Consultation: right hip fracture Requesting Physician: . Attending Physician: Lydia Chang DO . Allergies Allergy/AdvReac Type Severity Reaction Status Date / Time hydromorphone AdvReac Mild 0 Unverified 09/01/22 19:28 morphine AdvReac Mild HALUCINATES Verified 09/01/22 19:28 Home Medications Medication Instructions Recorded Confirmed Type levocetirizine 5 mg tablet (Xyzal) 5 mg PO DAILY #30 tabs 05/06/22 09/01/22 Rx lansoprazole 30 mg capsule,delayed 30 mg PO DAILY #90 caps 08/18/22 09/01/22 Rx release (Prevacid) Past Med/Surg History Medical History Allergic rhinitis Aortic valve stenosis Chronic kidney disease, stage 3 (moderate) Dementia Diabetes mellitus, type 2 Dyslipidemia GERD (gastroesophageal reflux disease) Irritable bowel syndrome with constipation Osteoarthritis Urinary incontinence Surgical History H/O hemorrhoidectomy H/O: hysterectomy History of appendectomy History of cataract surgery (2007) b/l eyes History of cholecystectomy History of colostomy reversal (2000) S/P colectomy (1997) secondary to perforation from divericulitis S/P repair of ventral hernia S/P tubal ligation Family History Father No problems noted. Mother Hypertension Stroke Dementia Brother Hypertension Diabetes Sister Diabetes Denies family history of Ovarian cancer Prostate cancer Myocardial infarction Breast cancer Colorectal cancer Social History Smoking Status: Former smoker Tobacco Type: Cigarettes packs per day: 0.5; Cigarettes Per Day: 6 cig/day; Second Hand Exposure: No; Hx Alcohol Use: Yes Alcohol type: other Hx Substance Use: No Preferred Language: Georgian Communication Ability: Impaired Visual Impairment: No Limitations Hearing Ability: Normal Floral Manager Required: No Beliefs That Will Affect Care: Buddhism Buddhism Beliefs: religious marital status: Current Living Situation: Spouse current occupational status: retired How many Children do You have: 2 Feels Safe at Home: Yes Diet Comment: regular caffeine: Yes during the past year weight has: remained stable Dental Care, Regularly: No Physical Activity Frequency: 3-4 Times per Week Seatbelt Use: always Sunscreen Use: No Assistive Devices: None Review of Systems All systems reviewed & are unremarkable except as noted in HPI & below. Physical Exam . Results & Data Results & Data Laboratory Results . Diagnostic Findings . PG Care Time/CCT Total # of Minutes Spent Total Time Spent with Patient: Total time spent is greater than 50% in coordination of care (as documented) at patient's floor/unit and/or counseling patient: Coding Diagnoses Fracture, intertrochanteric, right femur S72.787V
--- NOTE | 2022-09-02 08:27 | Anesthesiology Consultation ---
Date of Service September 02, 2022 Assessment & Plan (1) Encounter for pre-operative examination: Chart Review Chart Review: Acceptable Risk for Surgery and Patient NOT seen in Pre Admission Testing Consults Requested none History Surgery Operation Date: 09/02/22 08:20 Proposed Procedures p Right Troch Nail - Santi Mclain MD Height/Weight Height: 5 ft 6 in Weight: 66.8 kg Allergies Allergy/AdvReac Type Severity Reaction Status Date / Time hydromorphone AdvReac Mild 0 Unverified 09/01/22 19:28 morphine AdvReac Mild HALUCINATES Verified 09/01/22 19:28 Medications Home Medications Medication Instructions Recorded Confirmed Last Taken levocetirizine 5 mg tablet (Xyzal) 5 mg PO DAILY #30 tabs 05/06/22 09/01/22 Unknown lansoprazole 30 mg capsule,delayed 30 mg PO DAILY #90 caps 08/18/22 09/01/22 Unknown release (Prevacid) Active Medications Generic Name Dose Route Start Last Admin Trade Name Freq PRN Reason Stop Dose Admin Lactated Ringer's 1,000 mls @ 80 mls/hr 09/02/22 00:12 09/02/22 01:20 Lr IV 10/02/22 00:11 80 mls/hr .[id number] REFUGIO Administration Pantoprazole Sodium 40 mg 09/02/22 09:00 09/02/22 08:58 Pantoprazole 40 Mg Tab PO 10/02/22 08:59 Not Given DAILY REFUGIO Senna/Docusate Sodium 2 tab 09/02/22 00:12 09/02/22 01:07 Docusate Sodium/Senna 50/8.6mg Tab PO 10/02/22 00:11 2 tab HS REFUGIO Administration Tramadol HCl 50 mg 09/02/22 00:12 09/02/22 05:22 Tramadol Hcl 50 Mg Tablet PO 10/02/22 00:11 50 mg Q6H PRN Administration Pain NPO Date Last Intake of Fluids: 09/01/22 Time Last Intake of Fluids: 23:59 Date Last Intake of Solids: 09/01/22 Time Last Intake of Solids: 23:59 Past Medical History Medical History Allergic rhinitis Aortic valve stenosis Chronic kidney disease, stage 3 (moderate) Dementia Diabetes mellitus, type 2 Dyslipidemia GERD (gastroesophageal reflux disease) Irritable bowel syndrome with constipation Osteoarthritis Urinary incontinence Past Family History Family History Father No problems noted. Mother Hypertension Stroke Dementia Brother Hypertension Diabetes Sister Diabetes Denies family history of Ovarian cancer Prostate cancer Myocardial infarction Breast cancer Colorectal cancer Past Surgical History Surgical History H/O hemorrhoidectomy H/O: hysterectomy History of appendectomy History of cataract surgery (2007) b/l eyes History of cholecystectomy History of colostomy reversal (2000) S/P colectomy (1997) secondary to perforation from divericulitis S/P repair of ventral hernia S/P tubal ligation Social History Smoking Status: Former smoker tobacco type: cigarettes Smoking cigarettes per day: 6 cig/day Do You Dip or Chew Tobacco: No Smoking End Date: 2018 Hx Alcohol Use: Yes Alcohol type: other alcohol intake frequency: holidays/special occasions only Hx Substance Use: No Physical Exam Vital Signs Last Vital Signs Temp 37.7 C H 09/02/22 09:36 Pulse 94 H 09/02/22 09:36 Resp 22 09/02/22 09:36 BP 162/93 H 09/02/22 09:36 Pulse Ox 92 09/02/22 09:36 O2 Del Method 09/02/22 09:36 O2 Flow Rate 3 09/02/22 09:36 Testing Laboratory Results 09/02/22 03:34 09/02/22 09:37 PT 10.9 Seconds (9.0-12.0) 09/01/22 19:04 INR 1.0 (0.9-1.1) 09/01/22 19:04 APTT 26.4 Seconds (21.0-31.0) 09/01/22 19:04 Blood Type O Positive 09/02/22 03:34 Antibody Screen NEGATIVE 09/02/22 03:34 Electrocardiogram Date: 09/01/22 HR 69 Normal sinus rhythm Left anterior fascicular block Abnormal ECG When compared with ECG of 12-SEP-2015 13:36, Premature ventricular complexes are no longer Present
--- NOTE | 2022-09-02 08:43 | Electrocardiogram Report ---
Test Reason : Blood Pressure : / mmHG Vent. Rate : 069 BPM Atrial Rate : 069 BPM P-R Int : 202 ms QRS Dur : 076 ms QT Int : 396 ms P-R-T Axes : 059 -50 073 degrees QTc Int : 424 ms Normal sinus rhythm Left anterior fascicular block Abnormal ECG When compared with ECG of 12-SEP-2015 13:36, Premature ventricular complexes are no longer Present Confirmed by Poli Gan ([id number]) on 09/02/2022 8:43:42 AM Referred By: REFERRED SELF Confirmed By:Poli Gan
[2022-09-02] MEDS: PANTOprazole 40 MG TAB PO SCH ×2 (08:58→14:40)
[2022-09-02] MEDS ORDERED: SUGAMMADEX SODIUM 200 MG/2 ML VIAL IV ONE (09:24)
[2022-09-02] MEDS ORDERED: ACETAMINOPHEN 1000 MG/100 ML IV IV ONE (09:24)
[2022-09-02] MEDS ORDERED: fentaNYL citrate 100 MCG/2 ML VIAL ONE (09:35)
[2022-09-02] MEDS ORDERED: BUPIVACAINE 0.5 % 5 MG/1 ML MPF 30ML VIAL ONE (09:38)
[2022-09-02] MEDS ORDERED: EPINEPHrine INJ 1 MG/ML AMP ONE (09:38)
--- NOTE | 2022-09-02 09:40 | Orthopedic Consultation ---
Date of Service September 02, 2022 Assessment & Plan (1) Fracture, intertrochanteric, right femur: -Imaging reviewed, surgery recommended: R Femur closed reduction and short IM nail. -Risks/benefits of surgery discussed with pt's POA. Will proceed with surgery -Further recommendations to follow post operatively Pt seen and discussed w/ Dr. Mclain History of Present Illness Reason for Consultation: R Hip fracture. Requesting Physician: Kyle Black MD . Attending Physician: Kyle Black MD Pt is an 87 y/o/f with PMHx of dementia, DM II, DLD, CKD III, IBS, and GERD who was admitted overnight last night after she suffered a mechanical fall while getting out of a vehicle yesterday. She lives with her , who she was with at the time of the fall. She lost her balance while getting out of her car and fell on her right side. She had immediate hip pain afterwards and was brought to [facility] ED. Hip XRs showing mildly displaced R intertrochanteric hip fracture. Orthopedics consulted for definitive management of fracture. Pt unable to provide history on evaluation. Allergies Allergy/AdvReac Type Severity Reaction Status Date / Time hydromorphone AdvReac Mild 0 Unverified 09/01/22 19:28 morphine AdvReac Mild HALUCINATES Verified 09/01/22 19:28 Home Medications Medication Instructions Recorded Confirmed Type levocetirizine 5 mg tablet (Xyzal) 5 mg PO DAILY #30 tabs 05/06/22 09/01/22 Rx lansoprazole 30 mg capsule,delayed 30 mg PO DAILY #90 caps 08/18/22 09/01/22 Rx release (Prevacid) Past Med/Surg History Medical History Allergic rhinitis Aortic valve stenosis Chronic kidney disease, stage 3 (moderate) Dementia Diabetes mellitus, type 2 Dyslipidemia GERD (gastroesophageal reflux disease) Irritable bowel syndrome with constipation Osteoarthritis Urinary incontinence Surgical History H/O hemorrhoidectomy H/O: hysterectomy History of appendectomy History of cataract surgery (2007) b/l eyes History of cholecystectomy History of colostomy reversal (2000) S/P colectomy (1997) secondary to perforation from divericulitis S/P repair of ventral hernia S/P tubal ligation Family History Father No problems noted. Mother Hypertension Stroke Dementia Brother Hypertension Diabetes Sister Diabetes Denies family history of Ovarian cancer Prostate cancer Myocardial infarction Breast cancer Colorectal cancer Social History Smoking Status: Former smoker Tobacco Type: Cigarettes packs per day: 0.5; Cigarettes Per Day: 6 cig/day; Second Hand Exposure: No; Hx Alcohol Use: Yes Alcohol type: other Hx Substance Use: No Preferred Language: Bulgarian Communication Ability: Impaired Visual Impairment: No Limitations Hearing Ability: Normal Bond Underwriter Required: No Beliefs That Will Affect Care: Religion Religion Beliefs: yazdanism marital status: Current Living Situation: Spouse current occupational status: retired How many Children do You have: 2 Feels Safe at Home: Yes Diet Comment: regular caffeine: Yes during the past year weight has: remained stable Dental Care, Regularly: No Physical Activity Frequency: 3-4 Times per Week Seatbelt Use: always Sunscreen Use: No Assistive Devices: None Review of Systems All systems reviewed & are unremarkable except as noted in HPI & below. Physical Exam General: Confused, chronically ill appearing female resting in bed RLE: Pain with passive log roll. Leg is shortened and externally rotated. Distally NVI. Results & Data Results & Data Laboratory Results Reviewed - No significant abnormalities. Diagnostic Findings XRs reviewed and agree with interpretation. Mildly displaced R intertrochanteric femur fracture . PG Care Time/CCT Total # of Minutes Spent Total Time Spent with Patient: Total time spent is greater than 50% in coordination of care (as documented) at patient's floor/unit and/or counseling patient: Supervising Physician Co-Signing Physician Notes Agree with above note. Consent reviewed with patient and with the POA (daughter, Tejal) this morning. Proceed with Right Hip Fracture Closed or Open reduction and internal fixation today with short cephalomedullary nail. Coding Level of Care Code 65260 Inpt Consult Level 4 Diagnoses Fracture, intertrochanteric, right femur S72.141A
[2022-09-02] MEDS ORDERED: TRANEXAMIC ACID / 0.7% NACL 1000MG/100ML BAG IV ONE (09:49)
--- NOTE | 2022-09-02 09:53 | XRay Report ---
XR chest 1V portable HISTORY: Fall with right hip fracture. pre-op COMPARISON: Chest 10/28/2018. FINDINGS: There are low lung volumes. Mild interstitial thickening, unchanged. This is likely chronic . Left basilar linear densities favor subsegmental atelectasis or scarring. Otherwise, no focal lung consolidations to suggest a pneumonia. No evidence for pulmonary edema. The heart is top normal in si ze. There are calcifications within the aortic knob. No acute fractures identified. IMPRESSION: Mild chronic interstitial thickening, unchanged. Otherwise, no acute process within the chest. ACT 112: Negative or not required by law. Electronically signed by: Dmitri Serrato M.D. 09/02/2022 9:52 AM
[2022-09-02] MEDS ORDERED: TRANEXAMIC ACID / 0.7% NACL 1,000 MG/100 ML BAG IV ONE (09:59)
[2022-09-02] MEDS ORDERED: ceFAZolin 2000MG 2,000 MG/15 ML SYR IV ONE (10:03)
[2022-09-02] MEDS ORDERED: ceFAZolin 2,000 MG/15 ML IV PUSH IV ONE (10:04)
[2022-09-02 10:14] LABS: Calcium 9.3 mg/dl (8.5-10.1); Creatinine Clr Calc Pharmacy 40.1 ml/min; Est GFR (African American) 66.6 ml/min; Est GFR (Non-African American) 57.5 ml/min; Potassium 4.4 mmol/L (3.5-5.1)
[2022-09-02] MEDS ORDERED: PROPOFOL IV EMULSION 10 MG/ML 20 ML VIAL IV ONE (10:17)
[2022-09-02] MEDS ORDERED: LIDOCAINE 2% MPF LOCAL 5 ML VIAL INFIL ONE (10:17)
[2022-09-02] MEDS ORDERED: ROCURONIUM BROMIDE 10 MG/ML 5 ML VIAL IV ONE ×3 (10:18→11:37)
[2022-09-02] MEDS ORDERED: ONDANSETRON INJ 2 MG/ML 2 ML VIAL ONE (10:18)
[2022-09-02] MEDS ORDERED: ATROPINE SULFATE 0.1 MG/ML 10ML SYR IV PRN (10:25)
[2022-09-02] MEDS ORDERED: ePHEDrine sulfate 50 MG/ML AMP IV PRN (10:25)
[2022-09-02] MEDS ORDERED: fentaNYL citrate 100 MCG/2 ML VIAL IV PRN (10:25)
--- NOTE | 2022-09-02 10:33 | History & Physical Bridge Note ---
Date of Service September 02, 2022 History & Physical Bridge Note I have examined the patient, reviewed the History & Physical and in the interval since the performance of the History & Physical I have noted the following changes of clinical significance: no changes noted
[2022-09-02] MEDS ORDERED: PHENYLEPHRINE 100MCG/ML 5ML SYR ONE (11:37)
--- NOTE | 2022-09-02 12:13 | Operative Report ---
PG Post Operative Report Pre & Post Diagnosis Operation Date: 09/02/22 08:20 Pre-Op Diagnosis: Right Hip intertrochanteric fracture Post-Op Diagnosis: Right Hip intertrochanteric fracture I identified the patient and participated in the time-out.: Yes Procedure Operation Date: 09/02/22 08:20 Actual Procedures p Right proximal femur intertrochanteric fracture closed reduction and internal fixation with trochanteric entry cephalomedullary fixation nail (Right) - Santi Mclain MD Surgeon Santi Mclain MD Fitness Management Director Juan Manuel Vaughan PA-C Estimated Blood Loss 100 Findings See Below Stable pattern of intratrochanteric fracture with minimal comminution. All Synthes implants: 12 mm/130 degree titanium cannulated trochanteric fixation nail of 170 mm length. 11.0 mm titanium helical blade of 90 mm length. Distal interlock screw measuring 36 mm. Specimens none Anesthesia Type MAC Spinal Regional Complications none Disposition Accompanied Patient To Recovery: No Disposition: Surgical ICU Indications 87-year-old female sustained a ground-level fall resulting immediate hip pain and inability to weight-bear. She was brought to the emergency room. History was obtained from family due to her dementia. Radiographic work-up revealed an intratrochanteric hip fracture. I described the diagnosis, prognosis and treatment options with the patient and family. My physician medical lab assistant also communicated directly with her daughter. We had recommended surgery. The risks and benefits were reviewed in detail. The risk discussed include but not limited to infection, neurovascular injury, arthrofibrosis, need for repeat or revision surgery, nonunion, malunion, symptomatic hardware, other hardware complications, pain syndromes, blood clots and complications related to ane sthesia. They asked appropriate questions, demonstrating good understanding, and elected to proceed with surgery. Informed consent was obtained via the phone with her daughter who had power of alligator hunter. The consent was also discussed with the patient. Description of Procedure On the day of surgery should be was greeted in the preoperative holding area and the informed consent was reviewed and confirmed. The surgical site was then identified by the patient and signed by myself. The patient was taken to the operating placed by the OR table and anesthesia was induced. The patient is then positioned on the fracture table. All noah prominences were well padded. The operative foot was placed in the fracture boot with abundant padding. The well leg was secured. We then positioned the lower extremities in a scissor fashion with a non-op leg flexed down to allow visualization with fluoroscopy which was confirmed before we prepped and draped. Surgical timeout was called and verified by all present. Antibiotics were infused, and equipment was available and functional. The procedure was initiated with a closed reduction maneuvers. Gentle in-line traction pulled the fracture out to length. The limb was then internally rotated to reduce the proximal femur. Flexion and adduction were used to adjust the reduction and allow access to the greater trochanter. We had adequate reduction prior to prepping and draping. The leg was then prepped and draped in usual sterile fashion. Surgical timeout was reconfirmed. We initiated the surgical internal fixation portion with finding the start point with the tip of the greater trochanter. Fluoroscopic guidance was used and a small poke hole was established. The start point was confirmed on fluoroscopy in AP and lateral planes and the pin was advanced using a mallet. An incision was made about the pin to allow access for the reamers. The pin was then advanced past the lesser trochanter, and its position was confirmed using AP and lateral fluoroscopy. Using the protective sleeve, the opening reamer was advanced under power with fluoroscopic guidance over the guidepin. It was advanced slowly. A 12 mm nail was loaded onto the jig and advanced manually down the canal, while ensuring maintenance of the reduction on fluoroscopy. We then tapped it down into place until we achieve the good position for our cephalo-medullary screw. The cannula was placed on the jig to allow positioning of the cephalo-medullary screw. The skin incision was made in the appropriate spot. The jig cannulas were then placed against the lateral cortex. The cephalo-medullary screw guidepin was advanced towards the femoral head. The center-center position was confirmed on fluoroscopy in AP and lateral planes. The length of the screw was measured off the guide. The helical blade screw was then opened on the back table and prepared on the screwdriver. The lateral cortical opening drill, followed by the triple drill reamer for the helical blade was advanced under fluoroscopic guidance. The helical blade was advanced over the guidepin to appropriate position. The helical blade was locked in rotation and then the traction was taken off. Fluoroscopy confirmed maintenance of reduction and adequate position of the implant. The compression sleeve was then advanced against the lateral femur to improve the trochanteric-shaft reduction and compress the intertrochanteric region fracture. The jig was used for the distal interlock screw. The cannulas were advanced against skin to ari incision location. The incision was made and the cannulas advanced against bone. The Synthes drill bit was then advanced in the cannulas for bicortical drilling under flouroscopy. Length was measured using the drill bit. The final 5mm interlock screw was placed and position confirmed with fluoroscopy. This completed the fixation of the fracture. Fluoroscopy was used in both AP and lateral planes to evaluate the entirety of the fracture and implant. Reduction and implant positions were acceptable. The wounds were then thoroughly irrigated with bulb syringe and normal saline. The deep fascial layer was approximated with 0 Vicryl suture. The dermal layer was approximated using 2-0 Vicryl suture. The final skin closure was completed with main. Wounds were dressed with sterile Xeroform, sterile gauze, and Tegaderms over ABDs. The patient tolerated procedure well, awoke from anesthesia without complication, was extubated in the operating room, and transferred to the PACU in stable condition. Disposition: The patient be weightbearing as tolerated. I recommended routine DVT prophylaxis consisting of low molecular weight heparin while an inpatient and transition to oral aspirin, if tolerable, as the patient transitions out of the hospital. DVT prophylaxis should last 6 weeks. 24 hours of antibiotic prophylaxis should be continued. Physician medical lab assistant attestation: Juan Manuel Vaughan PA-C was present and scrubbed for the duration of the case. He was essential to prepping/draping, patient positioning, retraction, and assistance with wound closure. I attest to the content of the Intraoperative Record and any orders documented therein. Any exceptions are noted below.
[2022-09-02] MEDS ORDERED: TRANEXAMIC ACID 100 MG/ML 10 ML VIAL IV ONE (12:18)
[2022-09-02] MEDS ORDERED: TRANEXAMIC ACID / 0.7% NACL 1,000 MG/100 ML BAG IV SCH (12:45)
[2022-09-02] MEDS ORDERED: METOPROLOL TARTRATE 1 MG/ML VIAL IV STA (12:52)
[2022-09-02] MEDS ORDERED: METOPROLOL TARTRATE 1 MG/ML VIAL IV ONE (12:55)
--- NOTE | 2022-09-02 13:15 | Fluoroscopy Report ---
FL hip RT 2-3V CLINICAL HISTORY: RT TROCH NAIL TECHNIQUE: 5 views were obtained with the C-arm in the OR with the above procedure. Total fluoroscopy time was 59 seconds. Comparison: None available at the time of this dictation. FINDINGS/IMPRESSION: Intraoperative images were obtained of right hip trochanteric nail placement. Please correlate with intraoperative fluoroscopy and operative report. ACT 112: Negative or not required by law. Electronically signed by: Wes Herron M.D. 09/02/2022 1:13 PM
[2022-09-02] MEDS ORDERED: LORazepam 0.25 MG in SYRINGE 0 ML IV ONE (13:30)
--- NOTE | 2022-09-02 13:41 | Anesthesiology Progress Note ---
Date of Service September 02, 2022 Anesthesia Post Procedure Vital Signs Vital Signs: Temp Pulse Pulse Pulse Resp BP BP 09/02/22 13:25 36.6 C 79 20 115/86 09/02/22 13:05 115 H 17 106/67 09/02/22 12:35 99 H 17 115/82 09/02/22 12:25 98 H 16 136/72 09/02/22 13:15 80 17 106/67 09/02/22 12:55 96 H 20 123/60 09/02/22 12:59 148 H 123/60 09/02/22 12:45 132 H 18 127/75 09/02/22 12:15 96 H 17 134/65 09/02/22 12:06 37 C 98 H 15 155/74 H 09/02/22 07:15 09/02/22 09:36 37.7 C H 94 H 22 09/02/22 00:00 09/02/22 00:00 36.6 C 88 17 09/01/22 23:18 19 09/01/22 20:36 95 H 19 09/01/22 18:59 77 20 09/01/22 18:36 81 19 09/01/22 18:36 36.8 C 80 19 170/98 H BP Pulse Ox O2 Del Method O2 Flow Rate 09/02/22 13:25 94 Oxymask 3 09/02/22 13:05 93 Oxymask 3 09/02/22 12:35 94 Oxymask 3 09/02/22 12:25 96 Oxymask 5 09/02/22 13:15 93 Oxymask 3 09/02/22 12:55 94 Oxymask 3 09/02/22 12:59 09/02/22 12:45 91 Room Air 09/02/22 12:15 97 Oxymask 5 09/02/22 12:06 95 Oxymask 7 09/02/22 07:15 Room Air 09/02/22 09:36 162/93 H 92 Nasal Cannula 3 09/02/22 00:00 Room Air 09/02/22 00:00 131/80 94 Room Air 09/01/22 23:18 Room Air 09/01/22 20:36 168/98 H 96 Room Air 09/01/22 18:59 95 Room Air 09/01/22 18:36 95 Room Air 09/01/22 18:36 95 Room Air Pain Intensity Right Hip: Pain Intensity: 0 Transfer of Care Handoff Completed per policy Notes Mental Status: alert / awake / arousable and participated in evaluation Patient Amnestic to Procedure: Yes Nausea / Vomiting: adequately controlled Pain: adequately controlled Airway Patency, RR, SpO2: stable & adequate BP & HR: stable & adequate Hydration State: stable & adequate Anesthetic Complications: no major complications apparent and Pt Satisfied with anesthetic care Notes: In PACU, patient awake and verbal. Denies pain. Stable BP and SpO2. HR on ECG monitor appeared to be double counting her actual HR. SpO2 HR in 80's. Pearblossom pulse and was in 80's-90's. ECG done and showed NSR. Readjusted ECG monitor and then it recorded correct HR. Patient appears ok for transfer back to med surg.
--- NOTE | 2022-09-02 15:32 | XRay Report ---
XR hip RT min 2V CLINICAL HISTORY: Post-Operative implant position COMPARISON STUDY: Right hip 09/01/2022. FINDINGS: Status post internal fixation of a right hip fracture with a proximal intramedullary femora l katerin and interlocking femoral neck pin. The hardware appears intact. Alignment is near-anatomic. Ski n main are in place. IMPRESSION: Status post internal fixation of a right hip fracture. The hardware appears intact. ACT 112: Negative or not required by law. Electronically signed by: Dmitri Serrato M.D. 09/02/2022 3:31 PM
--- NOTE | 2022-09-02 17:10 | Electrocardiogram Report ---
Test Reason : Blood Pressure : / mmHG Vent. Rate : 085 BPM Atrial Rate : 085 BPM P-R Int : 206 ms QRS Dur : 080 ms QT Int : 410 ms P-R-T Axes : 055 -42 060 degrees QTc Int : 487 ms Normal sinus rhythm Left anterior fascicular block Abnormal ECG When compared with ECG of 01-SEP-2022 19:44, No significant change Confirmed by Poli Gan ([id number]) on 09/02/2022 5:10:09 PM Referred By: REFERRED SELF Confirmed By:Poli Gan
[2022-09-02] MEDS: ceFAZolin 2000MG 2,000 MG/15 ML SYR IV SCH (20:15)
--- NOTE | 2022-09-02 20:52 | Hospitalist Progress Note ---
Date of Service September 02, 2022 Assessment & Plan (1) Closed right hip fracture: Plan: 87yo female with history of dementia presenting with right intertrochanteric hip fracture following a ground level fall. Pain is well controlled at present. NV intact. -s/p Right proximal femur intertrochanteric fracture closed reduction and internal fixation with trochanteric entry cephalomedullary fixation nail performed by Dr Mclain [09/02] Post operative labs stable (2) GERD (gastroesophageal reflux disease): Plan: Chronic -continue pantoprazole 40mg PO daily (3) Dementia: Plan: Patient was previously on medication for dementia. Presently is not taking anything -Frequent orientation -Avoidance of potentially delirium-inducing agents - benzodiazepines -Monitor Plan VTE Prophylaxis - Lovenox 40mg SQ daily starting tomorrow Diet - regular, easy to chew Code - Full Code per discussion with on admission - no prolonged heroics Disposition - Admit to medical Admission and Anticipated Discharge Date Admission Date: September 01, 2022 Subjective Patient cannot remember why she is here, does not know the date. Denies any pain. Review of Systems Review of Systems: All systems reviewed & are unremarkable except as noted in Subjective Physical Exam Constitutional: WD/WN, vitals as above Respiratory: normal respiratory effort, lungs clear to auscultation Cardiovascular: Rate/Rhythm: regular rate and regular rhythm Heart Sounds: + murmur (ADAN 3/6) Extremities: normal capillary refill; no calf tenderness and no pedal edema Gastrointestinal (Abdomen): normal bowel sounds, soft, nontender, no hepatosplenomegaly Neurologic: moves all extremities, awake and + confused Psychiatric: Orientation: alert and oriented to person; + not oriented to place and + not oriented to time Results & Data Results & Data ([facility]) Vital Signs (Past 12 Hours) Vital Signs Temp Pulse Pulse Pulse Resp BP BP 09/02/22 19:10 09/02/22 16:00 09/02/22 17:05 36.8 C 71 18 126/67 09/02/22 16:03 36.3 C L 78 17 105/65 09/02/22 14:59 36.4 C L 78 17 113/50 L 09/02/22 14:35 36.8 C 74 17 126/73 09/02/22 14:10 36.5 C 75 16 104/64 09/02/22 13:45 81 18 111/73 09/02/22 13:35 80 16 126/69 09/02/22 13:25 36.6 C 79 20 115/86 09/02/22 13:05 115 H 17 106/67 09/02/22 12:35 99 H 17 115/82 09/02/22 12:25 98 H 16 136/72 09/02/22 13:15 80 17 106/67 09/02/22 12:55 96 H 20 123/60 09/02/22 12:59 148 H 123/60 09/02/22 12:45 132 H 18 127/75 09/02/22 12:15 96 H 17 134/65 09/02/22 12:06 37 C 98 H 15 155/74 H 09/02/22 09:36 37.7 C H 94 H 22 BP Pulse Ox Pulse Ox O2 Del Method O2 Flow Rate O2 Flow Rate 09/02/22 19:10 Room Air 09/02/22 16:00 95 2 09/02/22 17:05 95 Nasal Cannula 2 09/02/22 16:03 95 Nasal Cannula 2 09/02/22 14:59 96 Nasal Cannula 2 09/02/22 14:35 94 Nasal Cannula 2 09/02/22 14:10 94 Nasal Cannula 2 09/02/22 13:45 93 Nasal Cannula 3 09/02/22 13:35 92 Oxymask 3 09/02/22 13:25 94 Oxymask 3 09/02/22 13:05 93 Oxymask 3 09/02/22 12:35 94 Oxymask 3 09/02/22 12:25 96 Oxymask 5 09/02/22 13:15 93 Oxymask 3 09/02/22 12:55 94 Oxymask 3 09/02/22 12:59 09/02/22 12:45 91 Room Air 09/02/22 12:15 97 Oxymask 5 09/02/22 12:06 95 Oxymask 7 09/02/22 09:36 162/93 H 92 Nasal Cannula 3 PG Care Time/CCT Total # of Minutes Spent Total Time Spent with Patient: Total time spent is greater than 50% in coordination of care (as documented) at patient's floor/unit and/or counseling patient: Coding Level of Care Code 86545 Subseq Hosp Care Lvl 2 Diagnoses Closed right hip fracture S72.001A GERD (gastroesophageal reflux disease) K21.9 Dementia F03.B11 Dementia behavioral or psychological symptom: with agitation Dementia severity: moderate Dementia type: unspecified type (1) Dementia Dementia behavioral or psychological symptom: with agitation Dementia se verity: moderate Dementia type: unspecified type Qualified Code(s): F03.B11 - Unspecified dementia, moderate, with agitation
[2022-09-02] MEDS ORDERED: OLANZapine 10 MG/2.1 ML SDV IM STA (21:59)
[2022-09-02] MEDS ORDERED: OLANZapine 10 MG/2.1 ML SDV IM ONE (22:02)
[2022-09-03] MEDS: ceFAZolin 2000MG 2,000 MG/15 ML SYR IV SCH (03:06)
[2022-09-03] MEDS: traMADol HCL 50 MG TABLET PO PRN ×3 (03:19→17:07)
[2022-09-03] MEDS: LACTATED RINGER'S 1,000 ML IV SCH (03:37)
--- NOTE | 2022-09-03 07:35 | Orthopedic Progress Note ---
Date of Service September 03, 2022 Assessment & Plan (1) Fracture, intertrochanteric, right femur: (2) History of repair of hip fracture: Plan Postop day #1 status post right cephalomedullary nail for intertrochanteric fracture. -Discontinue 24-hour perioperative antibiotic prophylaxis today -PT/OT: Weightbearing and range of motion as tolerated to the hip -Pain control per the primary team -DVT PPx: Recommend chemoprophylaxis for at least 6 weeks. Suggest enoxaparin while inpatient and transition to oral aspirin for increased compliance upon discharge -Dressing: Remain in place until least postop day 2. May reinforce as needed. Disposition: Per pain control and rehabilitation needs. Should have wound check for staple removal at 2-3 weeks after surgery. Orthopedic clinic visit for x- rays at 6 weeks postop. Discharge instructions placed Subjective Sleeping. Did not offer much response when asked of hip pain. Review of Systems All systems reviewed & are unremarkable except as noted in HPI & below. Physical Exam GEN: Sleeping comfortably but arousable. Somewhat confused as per baseline. RLE: Dressing was clean dry and intact. Spontaneously performing DF/PF/EHL. Palpable 2+ DP and PT pulse. No significant edema in the extremity Constitutional WD/WN, vitals as above no acute distress and not intoxicated appearing Respiratory normal respiratory effort; no labored breathing Cardiovascular Extremities: normal capillary refill Results & Data Results & Data Laboratory Results Laboratory Tests 09/02/22 03:34 Hct 41.2 Diagnostic Findings . PG Care Time/CCT Total # of Minutes Spent Total Time Spent with Patient: Total time spent is greater than 50% in coordination of care (as documented) at patient's floor/unit and/or counseling patient: Coding Level of Care Code 92003 Post Operative Follow-Up Diagnoses Fracture, intertrochanteric, right femur S72.141A History of repair of hip fracture Z98.890
--- NOTE | 2022-09-03 08:16 | Hospitalist Progress Note ---
Date of Service September 03, 2022 Assessment & Plan (1) Fracture, intertrochanteric, right femur: Plan: 87yo female with history of dementia presenting with right intertrochanteric hip fracture following a ground level fall. Pain is well controlled at present. NV intact. POD #1 p Right proximal femur intertrochanteric fracture closed reduction and internal fixation with trochanteric entry cephalomedullary fixation nail (Right) - Santi Mclain MD on 09/02 EBL 100cc Overnight, reports of patient pulling off her mitts, was given tramadol without improvement, then overnight resident contacted and patient provided IM dose Zyprexa --Prior PCP notes patient had been placed on Risperdal, since discontinued as it was making her more agitated at home. ?Consider seroquel if needed Pain control/bowel regimen prn -- reported pain currently controlled, getting tramadol prn (reports hallucinations with morphine) -- On senna/docusate HS, added miralax BID DVT prophylaxis -- Lovenox SQ while inpatient and transition to oral aspirin for increased compliance BID at discharge Will need repeat xrays at 6 weeks with orthopedics PT/OT consulted for today -- likely will need inpatient rehab vs SNF. CM to follow Constipation Of note, PCP notes IBS w/ constipation, h/o SBO d/t adhesions, h/o diverticular disease w/ abscess s/p colectomy Does have +BS on exam Will check KUB, denied abd pain , did have some distension. No BM documented since admission. (had also been taking TUMs at home w/ recent start lansoprazole as well, Ca wnl) Pending KUB, consider suppository as well to assist (2) Closed right hip fracture: Plan: as above, PT/OT consulted (3) Hyponatremia: Plan: Na 133-135, TSH wnl. Na now down to 128 Of note, has been using tramadol as needed for pain control, could be contributing but suspect some aspect of volume overload from IVF post- operatively. Repeat CXR if not able to titrate off 2L -> effusion, lasix 20mg PO x 1, monitor response/titrate supplemental O2 as tolerated follow BMP in AM (4) GERD (gastroesophageal reflux disease): Plan: Chronic continue pantoprazole 40mg PO daily -- recently placed on lansoprazole 30mg for a "burning in her throat" that she had complained about at night. Per PCP note, had also had complaints of LUQ pain reported Will check mag -- 1.9 CXR on admit with mild chronic interstitial thickening, unchanged. On levocetirizine 5mg daily -- will place on zyrtec daily while inpatient Repeat CXR due to continued O2 use -- trace L effusion. Low dose lasix x 1, repeat labs/eval this afternoon Denies any sputum production, but does have a cough. Lasix x 1 as above, started Zyrtec given underling allergies and on levocetirizine at home consider adding flonase nasal spray daily as well given complaints of waking her up at night, could be worsening reflux vs allergy symptoms/post-nasal drip No evidence for tommie on exam, denies any CP/SOB currently. Does have some discomfort noted at times with deep coughing. (5) Hypoxia: Plan: as above, continued use of 2L through this morning, titrated to 1L CXR obtained for decreased BS in bases, faint expiratory wheezing Lasix PO x 1,titrate O2 as able Encouraged use of incentive spirometer, but poor use noted Checking ECHO given prior reports of aortic valve stenosis, not on medications. Does appear prior f/u deferred (6) Dementia: Plan: Patient was previously on medication for dementia. Presently is not taking anything -Frequent orientation, Avoidance of potentially delirium-inducing agents - benzodiazepines Prior B12 level in 200s in summer w/ PCP Repeat level B12 low normal at 235. IM replacement ordered while inpatient, would continue PO supplementation at discharge TSH wnl B1 level added to labs, consider starting empiric supplementation Was given dose of zyprexa overnight for agitation/confusion Has bilateral soft mitts in place currently for patient safety Previously on Risperdal at home per PCP notes, however this was discontinued as made patient more agitated Consider trying risperdal for tonight vs alternatively using low dose seroquel, possible 12.5mg HS prn given reports of worsening anxiety late afternoon and evening time (7) B12 deficiency: Plan: checked due to dementia, prior lows in system low normal 235-- IM replacement while inpatient, continue PO supplementation at discharge (8) Vitamin D deficiency: Plan: checked due to fracture, low at 22 replacement ordered -- would continue at discharge as well (9) History of repair of hip fracture: (10) Diabetes mellitus, type 2: Plan: A1c 7.1 most recently (prior 6.9 in 2019) NOT on any medications at home, per PCP notes, diet controlled Will add BSG AC/HS Glucose on AM labs 149 Not given any steroids w/ surgery Add ISS pending accuchecks, f/u PCP at d/c Plan VTE Prophylaxis - Lovenox 40mg SQ daily , consider changing to ASA 81mg BID at d/c Continued inpatient stay, PT/OT consults pending Lasix PO x 1 for volume overload, check ECHO given +murmur, no echo in system Supplemental O2 titration as able Check KUB/advance bowel regimen as able. hx diverticular/abscess, s/p colectomy. Monitor for any worsening/CT if warranted but NON Painful on exam, afebrile. Admission and Anticipated Discharge Date Admission Date: September 01, 2022 Supervising Physician Co-Signing Physician Notes TING Supervision Note: I did not personally see or examine the patient today, but I verified all rucker points of TING Bhandari's assessment and plan with the following exceptions/additions: None Subjective Patient evaluated this morning. Resting comfortably in bed. Denies pain to her hip, but is tender to palpation. Was given Zyprexa last evening for agitation, has bilateral mitts in place. Doesn't know how she got here, but is cooperative with care. Link draining scant clear yellow urine. Remains on 2L O2. Denies shortness of breath but does have cough, not able to expectorate sputum.Does have some pain with coughing, encouraged to use incentive spirometer. Denies any abdominal pain/nausea. Checking CXR for continued 2L and congestion. Na low. Possible need for low dose diuretics. Will monitor. Review of Systems Review of Systems: All systems reviewed & are unremarkable except as noted in HPI & below Physical Exam Physical Exam: General: WD elderly female resting comfortable upon entry, NAD bilateral soft mitts in place HEENT: head normocephalic, mmm, trachea midline, ? erythema posterior oropharynx Resp: diminished in the bases, +cough (no sputum production), faint expiratory wheezing posterior lung matthew, no crackles/rales, on 2L NC CV: RRR, +3/6 systolic murmur, calves nontender, pulses palpable, cap refill wnl GI: +BS, +distended, nontender : link draining scant yellow urine MSK/Neuro: follows commands as able, dressing to RIGHT hip c/d/i, ice pack in place, tender to palpation along dressing, compartments supple, NVI Psych: alert to person/knows in hospital but no idea how she got here/year/fall resulting in fracture in the first place cooperative, pleasant Results & Data Results & Data ([facility]) Vital Signs (Past 12 Hours) Vital Signs Temp Pulse Resp BP Pulse Ox O2 Del Method O2 Flow Rate 09/03/22 03:15 36.7 C 96 H 20 146/70 H 94 Nasal Cannula 2 09/02/22 22:25 36.5 C 94 H 16 154/74 H 96 Nasal Cannula 2 09/02/22 21:44 93 Nasal Cannula 2 09/02/22 21:35 36.8 C 100 H 18 160/73 H Laboratory Results 09/03/22 09/03/22 09/03/22 Range/Units 08:19 08:19 08:19 WBC (4.8-10.8) K/ul RBC (3.93-5.22) M/uL Hgb (12.0-16.0) g/dl Hct (34.1-44.9) % MCV (80.0-100.0) fL MCH (25.0-34.0) pg MCHC (32.0-36.0) g/dL RDW Std Deviation (36.4-46.3) fL RDW Coeff of Bhaskar (11.5-14.5) % Plt Count (130-400) K/uL MPV (9.4-12.3) fL Sodium (136-145) mmol/L Potassium (3.5-5.1) mmol/L Chloride (98-107) mmol/L Carbon Dioxide (21-32) mmol/L Anion Gap (3-11) BUN (6-23) mg/dl Creatinine (0.6-1.2) mg/dl Est Cr Clr Drug Dosing ml/min Est GFR ( Amer) ml/min Est GFR (Non-Af Amer) ml/min BUN/Creatinine Ratio (10-20) Glucose (70-99(Fasting)) mg/dl POC Glucose (70-99) mg/dl Calcium (8.5-10.1) mg/dl Magnesium (1.7-2.4) mg/dl Total Bilirubin (0.2-1.0) mg/dl AST (13-39) U/L ALT (7-52) U/L Alkaline Phosphatase (34-104) U/L Total Protein (6.0-8.3) gm/dl Albumin (3.4-5.0) gm/dl Globulin (2.5-4.0) gm/dl Albumin/Globulin Ratio (0.9-2) Vitamin B1 Pending Vitamin B12 (180-914) pg/ml 25-OH Vitamin D Total 22.0 L (30-100) ng/ml TSH 1.296 (0.300-4.500) uIu/ml 09/03/22 09/03/22 09/03/22 Range/Units 08:19 08:19 08:19 WBC 11.75 H (4.8-10.8) K/ul RBC 3.97 (3.93-5.22) M/uL Hgb 11.5 L (12.0-16.0) g/dl Hct 35.0 (34.1-44.9) % MCV 88.2 (80.0-100.0) fL MCH 29.0 (25.0-34.0) pg MCHC 32.9 (32.0-36.0) g/dL RDW Std Deviation 43.7 (36.4-46.3) fL RDW Coeff of Bhaskar 13.4 (11.5-14.5) % Plt Count 161 (130-400) K/uL MPV 10.1 (9.4-12.3) fL Sodium 129 L (136-145) mmol/L Potassium 4.5 (3.5-5.1) mmol/L Chloride 97 L (98-107) mmol/L Carbon Dioxide 28 (21-32) mmol/L Anion Gap 4 (3-11) BUN 12 (6-23) mg/dl Creatinine 0.80 (0.6-1.2) mg/dl Est Cr Clr Drug Dosing 44.6 ml/min Est GFR ( Amer) 75.8 ml/min Est GFR (Non-Af Amer) 65.4 ml/min BUN/Creatinine Ratio 15.0 (10-20) Glucose 149 H (70-99(Fasting)) mg/dl POC Glucose (70-99) mg/dl Calcium 8.6 (8.5-10.1) mg/dl Magnesium 1.9 (1.7-2.4) mg/dl Total Bilirubin 1.0 D (0.2-1.0) mg/dl AST 27 (13-39) U/L ALT 17 (7-52) U/L Alkaline Phosphatase 134 H (34-104) U/L Total Protein 6.3 (6.0-8.3) gm/dl Albumin 3.1 L (3.4-5.0) gm/dl Globulin 3.2 (2.5-4.0) gm/dl Albumin/Globulin Ratio 1.0 (0.9-2) Vitamin B1 Vitamin B12 235 (180-914) pg/ml 25-OH Vitamin D Total (30-100) ng/ml TSH (0.300-4.500) uIu/ml 09/02/22 Range/Units 12:10 WBC (4.8-10.8) K/ul RBC (3.93-5.22) M/uL Hgb (12.0-16.0) g/dl Hct (34.1-44.9) % MCV (80.0-100.0) fL MCH (25.0-34.0) pg MCHC (32.0-36.0) g/dL RDW Std Deviation (36.4-46.3) fL RDW Coeff of Bhaskar (11.5-14.5) % Plt Count (130-400) K/uL MPV (9.4-12.3) fL Sodium (136-145) mmol/L Potassium (3.5-5.1) mmol/L Chloride (98-107) mmol/L Carbon Dioxide (21-32) mmol/L Anion Gap (3-11) BUN (6-23) mg/dl Creatinine (0.6-1.2) mg/dl Est Cr Clr Drug Dosing ml/min Est GFR ( Amer) ml/min Est GFR (Non-Af Amer) ml/min BUN/Creatinine Ratio (10-20) Glucose (70-99(Fasting)) mg/dl POC Glucose 179 H (70-99) mg/dl Calcium (8.5-10.1) mg/dl Magnesium (1.7-2.4) mg/dl Total Bilirubin (0.2-1.0) mg/dl AST (13-39) U/L ALT (7-52) U/L Alkaline Phosphatase (34-104) U/L Total Protein (6.0-8.3) gm/dl Albumin (3.4-5.0) gm/dl Globulin (2.5-4.0) gm/dl Albumin/Globulin Ratio (0.9-2) Vitamin B1 Vitamin B12 (180-914) pg/ml 25-OH Vitamin D Total (30-100) ng/ml TSH (0.300-4.500) uIu/ml Diagnostic Findings Hip X-Ray 09/02/22 11:00 FL hip RT 2-3V CLINICAL HISTORY: RT TROCH NAIL TECHNIQUE: 5 views were obtained with the C-arm in the OR with the above procedure. Total fluoroscopy time was 59 seconds. Comparison: None available at the time of this dictation. FINDINGS/IMPRESSION: Intraoperative images were obtained of right hip trochanter ic nail placement. Please correlate with intraoperative fluoroscopy and operative report. ACT 112: Negative or not required by law. Electronically signed by: Wes Herron M.D. 09/02/2022 1:13 PM Hip X-Ray 09/02/22 14:07 XR hip RT min 2V CLINICAL HISTORY: Post-Operative implant position COMPARISON STUDY: Right hip 09/01/2022. FINDINGS: Status post internal fixation of a right hip fracture with a proximal intramedullary femoral katerin and interlocking femoral neck pin. The hardware appears intact. Alignment is near-anatomic. Skin main are in place. IMPRESSION: Status post internal fixation of a right hip fracture. The hardware appears intact. ACT 112: Negative or not required by law. Electronically signed by: Dmitri Serrato M.D. 09/02/2022 3:31 PM Chest X-Ray 09/03/22 09:23 XR chest 1V portable CLINICAL HISTORY: hypoxia, eval volume overload TECHNIQUE: Single frontal radiograph of the chest was obtained. Comparison: Comparison is made to chest radiograph 09/02/2022 FINDINGS: No lines and tubes are seen. Calcified aortic knob is seen. Reticular interstitial opacities are seen. Trace left pleural effusion is seen. IMPRESSION: Trace left pleural effusion. Interstitial thickening is seen. ACT 112: Negative or not required by law. Electronically signed by: Wes Herron M.D. 09/03/2022 11:13 AM PG Care Time/CCT Total # of Minutes Spent Total Time Spent with Patient: Total time spent is greater than 50% in coordination of care (as documented) at patient's floor/unit and/or counseling patient: Coding Level of Care Code 69027 Subseq Hosp Care Lvl 3 Diagnoses Fracture, intertrochanteric, right femur S72.141A Closed right hip fracture S72.001A Hyponatremia E87.1 GERD (gastroesophageal reflux disease) K21.9 Hypoxia R09.02 Dementia F03.B11 Dementia behavioral or psychological symptom: with agitation Dementia severity: moderate Dementia type: unspecified type B12 deficiency E53.8 Vitamin D deficiency E55.9 History of repair of hip fracture Z98.890 Diabetes mellitus, type 2 E11.9 (1) Dementia Dementia behavioral or psychological symptom: with agitation Dementia severity: moderate Dementia type: unspecified type Qualified Code(s): F03.B11 - Unspecified dementia, moderate, with agitation
[2022-09-03] MEDS: PANTOprazole 40 MG TAB PO SCH (08:22)
[2022-09-03 08:58] LABS: Albumin Level 3.1 gm/dl (3.4-5.0); Calcium 8.6 mg/dl (8.5-10.1); Creatinine Clr Calc Pharmacy 44.6 ml/min; Est GFR (African American) 75.8 ml/min; Est GFR (Non-African American) 65.4 ml/min; Globulin 3.2 gm/dl (2.5-4.0); Magnesium 1.9 mg/dl (1.7-2.4); Potassium 4.5 mmol/L (3.5-5.1); Total Protein 6.3 gm/dl (6.0-8.3)
[2022-09-03 08:59] LABS: Hemoglobin 11.5 g/dl (12.0-16.0); Mean Corpuscular Hgb Conc 32.9 g/dL (32.0-36.0); Mean Corpuscular Volume 88.2 fL (80.0-100.0); Mean Platelet Volume 10.1 fL (9.4-12.3); Platelet Count 161 K/uL (130-400); RDW Coefficient of Variation 13.4 % (11.5-14.5); RDW Standard Deviation 43.7 fL (36.4-46.3); Red Blood Count 3.97 M/uL (3.93-5.22); White Blood Count 11.75 K/ul (4.8-10.8)
[2022-09-03] MEDS: ENOXAPARIN INJ 40 MG/0.4 ML SYR SQ SCH (10:09)
[2022-09-03] MEDS: CYANOCOBALAMIN 1000 MCG/ML VIAL IM SCH (10:32)
--- NOTE | 2022-09-03 11:15 | XRay Report ---
XR chest 1V portable CLINICAL HISTORY: hypoxia, eval volume overload TECHNIQUE: Single frontal radiograph of the chest was obtained. Comparison: Comparison is made to chest radiograph 09/02/2022 FINDINGS: No lines and tubes are seen. Calcified aortic knob is seen. Reticular interstitial opacities are seen . Trace left pleural effusion is seen. IMPRESSION: Trace left pleural effusion. Interstitial thickening is seen. ACT 112: Negative or not required by law. Electronically signed by: Wes Herron M.D. 09/03/2022 11:13 AM
[2022-09-03] MEDS: CHOLECALCIFEROL 1,000 UNITS 25 MCG TAB PO SCH (11:31)
[2022-09-03] MEDS ORDERED: FUROSEMIDE 20 MG TAB PO ONE (11:34)
[2022-09-03] MEDS ORDERED: CETIRIZINE HCL 10 MG TABLET PO ONE (11:38)
[2022-09-03] MEDS: POLYETHYLENE (MIRALAX) 17 GM PACK PO SCH ×2 (12:46→21:27)
--- NOTE | 2022-09-03 13:09 | XRay Report ---
KUB CLINICAL HISTORY: hx SBO d/t adhesions, no BM x 3 days, eval stool COMPARISON STUDY: CT of the abdomen and pelvis June 24, 2014. Abdominal series October 28, 2018. FINDINGS: Surgical clips, bowel anastomoses, cholecystectomy clips and a right femoral internal fixat ion are incidentally noted. The bowel gas pattern is normal. There is no evidence for a bowel obstruc tion. Amount of stool is within normal limits. [id number] amount stool within the colon and rec alison is present. No evidence for free air on this supine exam. Left pelvic calcifications are unchange d and favor phleboliths. IMPRESSION: 1. No evidence for a bowel obstruction. 2. Amount of stool within normal limits. ACT 112: Negative or not required by law. Electronically signed by: Malik Kim M.D. 09/03/2022 1:07 PM
[2022-09-03] MEDS ORDERED: GLUCOSE 40% GEL 15 GM TUBE PO PRN (16:11)
[2022-09-03] MEDS ORDERED: CARBOHYDRATES FOR HYPOGLYCEMIA PO PRN (16:11)
[2022-09-03] MEDS ORDERED: GLUCAGON FOR INJ 1 MG VIAL SQ PRN (16:11)
[2022-09-03] MEDS ORDERED: DEXTROSE 50% 50 ML SYRINGE IV PRN (16:11)
[2022-09-03] MEDS ORDERED: GLUCOSE 10 TAB/TUBE PO PRN (16:11)
[2022-09-03] MEDS ORDERED: bisacodyL 5 MG TABEC PO ONE (16:17)
[2022-09-03] MEDS ORDERED: bisacodyL 10 MG SUPP PR PRN (16:17)
[2022-09-03 17:18] LABS: BUN Creatinine Ratio 18.4 (10-20); Calcium 8.7 mg/dl (8.5-10.1); Est GFR (African American) 80.6 ml/min; Est GFR (Non-African American) 69.5 ml/min; Potassium 4.2 mmol/L (3.5-5.1)
[2022-09-03] MEDS: INSULIN ASPART PER UNIT SC SCH ×2 (17:55→21:27)
[2022-09-03] MEDS ORDERED: guaiFENesin 600 MG TABCR PO SCH (21:00)
[2022-09-03] MEDS: DOCUSATE SODIUM/SENNA 50/8.6MG TAB PO SCH (21:27)
[2022-09-03] MEDS: oxyCODONE HCL IR 5 MG TAB (IMMEDIATE RELEASE) PO PRN (22:55)
[2022-09-04] MEDS: QUEtiapine FUMARATE 25 MG TABLET PO PRN (02:27)
[2022-09-04] MEDS: oxyCODONE HCL IR 5 MG TAB (IMMEDIATE RELEASE) PO PRN ×3 (03:08→18:22)
[2022-09-04 07:27] LABS: Hematocrit (blood only) 31.1 % (34.1-44.9); Hemoglobin 10.3 g/dl (12.0-16.0); Mean Corpuscular Hgb Conc 33.1 g/dL (32.0-36.0); Mean Corpuscular Volume 87.6 fL (80.0-100.0); Mean Platelet Volume 10.1 fL (9.4-12.3); Platelet Count 149 K/uL (130-400); RDW Coefficient of Variation 13.4 % (11.5-14.5); RDW Standard Deviation 43.1 fL (36.4-46.3); Red Blood Count 3.55 M/uL (3.93-5.22); White Blood Count 9.42 K/ul (4.8-10.8)
[2022-09-04 07:56] LABS: Albumin Globulin Ratio 0.9 (0.9-2); Albumin Level 2.9 gm/dl (3.4-5.0); BUN Creatinine Ratio 23.6 (10-20); Bilirubin,Total 0.8 mg/dl (0.2-1.0); Calcium 8.6 mg/dl (8.5-10.1); Creatinine Clr Calc Pharmacy 49.6 ml/min; Est GFR (African American) 86.1 ml/min; Est GFR (Non-African American) 74.3 ml/min; Globulin 3.1 gm/dl (2.5-4.0); Potassium 4.3 mmol/L (3.5-5.1)
--- NOTE | 2022-09-04 08:00 | Hospitalist Progress Note ---
Date of Service September 04, 2022 Assessment & Plan (1) Fracture, intertrochanteric, right femur: Plan: 87yo female with history of dementia presenting with right intertrochanteric hip fracture following a ground level fall. Pain is well controlled at present. NV intact. Age-related osteoporotic intertrochanteric femur fracture S/p Right proximal femur intertrochanteric fracture closed reduction and internal fixation with trochanteric entry cephalomedullary fixation nail (Right) - Santi Mclain MD on 09/02 EBL 100cc Overnight 09/02-09/03, reports of patient pulling off her mitts, was given tramadol without improvement, then overnight resident contacted and patient provided IM dose Zyprexa--Prior PCP notes patient had been placed on Risperdal, since discontinued as it was making her more agitated at home. ?Consider seroquel if needed Pain control -- reported pain currently controlled but had been getting tramadol without significant control at times and suspect caused worsening confusion 09/03 along with hyponatremia (reports hallucinations with morphine). -- Tolerating oxycodone with improvement in pain, cognitive status improved compared to yesterday Constipation Of note, PCP notes IBS w/ constipation, h/o SBO d/t adhesions, h/o diverticular disease w/ abscess s/p colectomy. +BS on exam, nontender. KUB w/o obstruction Continue senna/docusate HS, miralax BID, dulcolax daily added. Suppository overnight if no BM DVT prophylaxis-- Lovenox SQ while inpatient and transition to oral aspirin for increased compliance BID at discharge Will need repeat xrays at 6 weeks with orthopedics PT/OT consulted for today -- likely will need inpatient rehab vs SNF --> refused to work with PT earlier today due to pain reported and resisted further attempts at mobility CM to follow (2) Closed right hip fracture: Plan: as above, PT/OT consulted (3) Hyponatremia: Plan: Na 133-135, TSH wnl. Na 128 on 09/03, did get a dose of lasix 20mg PO x 1 Urine na 33, urine osm 469 this morning CXR w/ worsened congestion/effusion on the left, wheezing on exam and additional 20mg PO lasix provided 09/04 (Na was 129) Suspect hyponatremia worsened in days past with continued tramadol use and volume overload which has been switched to oxycodone prn Follow BMP (4) Hypoxia: Plan: post operatively has remained on supplemental o2 given 20mg PO lasix yesterday for volume overload in patient with moderate aortic stenosis (ECHO obtained given +murmur on exam) , possibly from fluids post op Titrated to ROOM AIR this evening when awake, desats when sleeping -- will check overnight pulse ox Of note, who was visiting yesterday, per discussion with RN this evening as attempted to see when visiting, staying home as he is positive for the flu (did have low grade elevation in temp to 37.3C on 09/02 but suspected from atelectais) will check for flu to ensure not contributing to current condition (5) GERD (gastroesophageal reflux disease): Plan: Chronic continue pantoprazole 40mg PO daily -- recently placed on lansoprazole 30mg for a "burning in her throat" that she had complained about at night. Also on levocetirizine for allergic rhinitis symptoms Continue protonix/zyrtec while inpatient No increased reflux reported (6) Dementia: Plan: Patient was previously on medication for dementia. Presently is not taking anything. Prior on risperdal at home per PCP notes, however was d/c'd as stated made her more agitated suspect hospital delirium on top of patient with dementia -Frequent orientation, Avoidance of potentially delirium-inducing agents - benzodiazepines Prior B12 level in 200s in summer w/ PCP - Repeat level B12 low normal at 235. IM replacement ordered while inpatient, would continue PO supplementation at discharge -- switched to PO moving forward given patient fear of needles TSH wnl B1 level pending, consider starting empiric supplementation Zyprexa overnight for agitation/confusion 09/02-09/03 w/ b/l soft mitts, since discontinued Seroquel 12.mg HS added if needed -- did get dose overnight 09/03-09/04 and can continue as needed. mood stable during examination 09/04 and was cooperative for me check UA to r/o any infection given link removed overnight per protocol however needed replaced given retention (RN reported she received in report patient refused to void as she didn't want to be on the bedside commode), order for replacement of link overnight. abx if evidence for infection (7) B12 deficiency: Plan: checked due to dementia, prior lows in system low normal 235-- IM replacement while inpatient x 2 doses, switched to PO supplementation as above and would continue at discharge (8) Vitamin D deficiency: Plan: checked due to fracture, low at 22 replacement ordered -- would continue at discharge as well (9) Diabetes mellitus, type 2: Plan: A1c 7.1 most recently (prior 6.9 in 2019) NOT on any medications at home, per PCP notes, diet controlled Glucose on AM labs 129, not given any steroids w/ surgery BSG AC/HS, ISS added BSGs acceptable -- f/u PCP at discharge (10) Aortic stenosis: Plan: on exam, echo obtained given fall however denied symptoms of syncope/angina/dyspnea however has dementia at baseline volume overload suspected post-op from IVF, lasix 20mg PO provided yesterday, repeat for 09/04 and monitor volume status in am -f/u with ECHO in 1-2 years as outpt Plan VTE Prophylaxis - Lovenox 40mg SQ daily , plan to change to ASA 81mg BID at d/c Continued inpatient stay, PT/OT consults pending Supplemental O2 titration as able Check KUB/advance bowel regimen as able. hx diverticular/abscess, s/p colectomy. Monitor for any worsening/CT if warranted but NON Painful on exam, afebrile. Admission and Anticipated Discharge Date Admission Date: September 01, 2022 Supervising Physician Co-Signing Physician Notes TING Supervision Note: I did not personally see or examine the patient today, but I verified all rucker points of TING Bhandari's assessment and plan with the following exceptions/additions: Given issues with encephalopathy in setting of dementia, would recommend using Tylenol only and could do so on a scheduled basis. On review, patient has not been given a single dose of tylenol since hospitalization. Changed order to read "to be given first" for pain rather than simply for "pain level 1-4" to encourage use. Would consider stopping all opioids if possible. Subjective Eval this morning states feeling better knows in hospital, but unclear as to why states pain better to her hip no fever/chills Link replaced overnight for retention, draining yellow urine. changed from tramadol to oxycodone for pain control, she believes her takes that at home. Oxygen probe around neck, denies shortness of breath. believes she hasn't had any further coughing. Difficult to work with therapy. Oxycodone per nursing does seem to be better pain controlled. Did not have much of an appetite for breakfast due to fear of choking. Cough w/ clear sputum production. Also, tearful with IM injections of B12, will switch to PO moving forward. Had her oxygen off, but sats dropped to 80s, back on 2L w/ SpO2 92%. Did not give suppository last evening but taking miralax/senna and having good bowel sounds. DENIES abdominal pain. Attempted to call Bogdan, continued ringing/no voicemail box. Visited yesterday, to alert CM when he visits to go over dc planning. Saw patient then in evening -- up in chair off oxygen when awake and eating dinner after lasix this morning. Had mashed potatoes for lunch and currently working on her veggies. Improvement in appetite. didn't visit as he is positive for the flu. Will swab patient as well. Review of Systems Review of Systems: All systems reviewed & are unremarkable except as noted in HPI & below Physical Exam Physical Exam: General: WD elderly female resting comfortable upon entry, NAD HEENT: head normocephalic, mmm, trachea midline Resp: diminished in the bases, +cough (no sputum production), faint expiratory wheezing posterior lung matthew, no crackles/rales, on 2L NC this morning (titrated to ROOM AIR THIS EVENING) CV: RRR, +3/6 systolic murmur, calves nontender, pulses palpable, cap refill wnl GI: +BS, +distended, nontender : link draining yellow urine MSK/Neuro: follows commands as able, dressing to RIGHT hip c/d/i, ice pack in place, tender to palpation along dressing, compartments supple, NVI Psych: alert to person/knows in hospital but no idea how she got here/year/fall resulting in fracture in the first place cooperative, pleasant Results & Data Results & Data ([facility]) Vital Signs (Past 12 Hours) Vital Signs Temp Pulse Resp BP Pulse Ox O2 Del Method O2 Flow Rate 09/04/22 07:06 36.7 C 103 H 16 105/69 92 Nasal Cannula 2 09/03/22 20:20 Nasal Cannula 2 09/03/22 20:52 37.0 C 96 H 18 125/74 92 Room Air 09/03/22 21:12 80 96 Nasal Cannula 2 Laboratory Results 09/04/22 09/04/22 09/04/22 Range/Units 07:15 07:15 01:50 WBC 9.42 (4.8-10.8) K/ul RBC 3.55 L (3.93-5.22) M/uL Hgb 10.3 L (12.0-16.0) g/dl Hct 31.1 L (34.1-44.9) % MCV 87.6 (80.0-100.0) fL MCH 29.0 (25.0-34.0) pg MCHC 33.1 (32.0-36.0) g/dL RDW Std Deviation 43.1 (36.4-46.3) fL RDW Coeff of Bhaskar 13.4 (11.5-14.5) % Plt Count 149 (130-400) K/uL MPV 10.1 (9.4-12.3) fL Sodium 129 L (136-145) mmol/L Potassium 4.3 (3.5-5.1) mmol/L Chloride 97 L (98-107) mmol/L Carbon Dioxide 28 (21-32) mmol/L Anion Gap 4 (3-11) BUN 17 (6-23) mg/dl Creatinine 0.72 (0.6-1.2) mg/dl Est Cr Clr Drug Dosing 49.6 ml/min Est GFR ( Amer) 86.1 ml/min Est GFR (Non-Af Amer) 74.3 ml/min BUN/Creatinine Ratio 23.6 H (10-20) Glucose 129 H (70-99(Fasting)) mg/dl POC Glucose (70-99) mg/dl Calcium 8.6 (8.5-10.1) mg/dl Magnesium (1.7-2.4) mg/dl Total Bilirubin 0.8 (0.2-1.0) mg/dl AST 19 (13-39) U/L ALT 10 (7-52) U/L Alkaline Phosphatase 129 H (34-104) U/L Total Protein 6.0 (6.0-8.3) gm/dl Albumin 2.9 L (3.4-5.0) gm/dl Globulin 3.1 (2.5-4.0) gm/dl Albumin/Globulin Ratio 0.9 (0.9-2) Vitamin B1 Vitamin B12 (180-914) pg/ml 25-OH Vitamin D Total (30-100) ng/ml TSH (0.300-4.500) uIu/ml Urine Osmolality (500-800) mOsm/kg Ur Random Sodium 33 mmol/L 09/04/22 09/03/22 09/03/22 Range/Units 01:50 20:51 17:01 WBC (4.8-10.8) K/ul RBC (3.93-5.22) M/uL Hgb (12.0-16.0) g/dl Hct (34.1-44.9) % MCV (80.0-100.0) fL MCH (25.0-34.0) pg MCHC (32.0-36.0) g/dL RDW Std Deviation (36.4-46.3) fL RDW Coeff of Bhaskar (11.5-14.5) % Plt Count (130-400) K/uL MPV (9.4-12.3) fL Sodium (136-145) mmol/L Potassium (3.5-5.1) mmol/L Chloride (98-107) mmol/L Carbon Dioxide (21-32) mmol/L Anion Gap (3-11) BUN (6-23) mg/dl Creatinine (0.6-1.2) mg/dl Est Cr Clr Drug Dosing ml/min Est GFR ( Amer) ml/min Est GFR (Non-Af Amer) ml/min BUN/Creatinine Ratio (10-20) Glucose (70-99(Fasting)) mg/dl POC Glucose 203 H 149 H (70-99) mg/dl Calcium (8.5-10.1) mg/dl Magnesium (1.7-2.4) mg/dl Total Bilirubin (0.2-1.0) mg/dl AST (13-39) U/L ALT (7-52) U/L Alkaline Phosphatase (34-104) U/L Total Protein (6.0-8.3) gm/dl Albumin (3.4-5.0) gm/dl Globulin (2.5-4.0) gm/dl Albumin/Globulin Ratio (0.9-2) Vitamin B1 Vitamin B12 (180-914) pg/ml 25-OH Vitamin D Total (30-100) ng/ml TSH (0.300-4.500) uIu/ml Urine Osmolality 469 L (500-800) mOsm/kg Ur Random Sodium mmol/L 09/03/22 09/03/22 09/03/22 Range/Units 16:37 12:12 08:19 WBC (4.8-10.8) K/ul RBC (3.93-5.22) M/uL Hgb (12.0-16.0) g/dl Hct (34.1-44.9) % MCV (80.0-100.0) fL MCH (25.0-34.0) pg MCHC (32.0-36.0) g/dL RDW Std Deviation (36.4-46.3) fL RDW Coeff of Bhaskar (11.5-14.5) % Plt Count (130-400) K/uL MPV (9.4-12.3) fL Sodium 128 L (136-145) mmol/L Potassium 4.2 (3.5-5.1) mmol/L Chloride 95 L (98-107) mmol/L Carbon Dioxide 29 (21-32) mmol/L Anion Gap 4 (3-11) BUN 14 (6-23) mg/dl Creatinine 0.76 (0.6-1.2) mg/dl Est Cr Clr Drug Dosing 47.0 ml/min Est GFR ( Amer) 80.6 ml/min Est GFR (Non-Af Amer) 69.5 ml/min BUN/Creatinine Ratio 18.4 (10-20) Glucose 158 H (70-99(Fasting)) mg/dl POC Glucose 179 H (70-99) mg/dl Calcium 8.7 (8.5-10.1) mg/dl Magnesium (1.7-2.4) mg/dl Total Bilirubin (0.2-1.0) mg/dl AST (13-39) U/L ALT (7-52) U/L Alkaline Phosphatase (34-104) U/L Total Protein (6.0-8.3) gm/dl Albumin (3.4-5.0) gm/dl Globulin (2.5-4.0) gm/dl Albumin/Globulin Ratio (0.9-2) Vitamin B1 Vitamin B12 (180-914) pg/ml 25-OH Vitamin D Total 22.0 L (30-100) ng/ml TSH (0.300-4.500) uIu/ml Urine Osmolality (500-800) mOsm/kg Ur Random Sodium mmol/L 09/03/22 09/03/22 09/03/22 Range/Units 08:19 08:19 08:19 WBC (4.8-10.8) K/ul RBC (3.93-5.22) M/uL Hgb (12.0-16.0) g/dl Hct (34.1-44.9) % MCV (80.0-100.0) fL MCH (25.0-34.0) pg MCHC (32.0-36.0) g/dL RDW Std Deviation (36.4-46.3) fL RDW Coeff of Bhaskar (11.5-14.5) % Plt Count (130-400) K/uL MPV (9.4-12.3) fL Sodium (136-145) mmol/L Potassium (3.5-5.1) mmol/L Chloride (98-107) mmol/L Carbon Dioxide (21-32) mmol/L Anion Gap (3-11) BUN (6-23) mg/dl Creatinine (0.6-1.2) mg/dl Est Cr Clr Drug Dosing ml/min Est GFR ( Amer) ml/min Est GFR (Non-Af Amer) ml/min BUN/Creatinine Ratio (10-20) Glucose (70-99(Fasting)) mg/dl POC Glucose (70-99) mg/dl Calcium (8.5-10.1) mg/dl Magnesium (1.7-2.4) mg/dl Total Bilirubin (0.2-1.0) mg/dl AST (13-39) U/L ALT (7-52) U/L Alkaline Phosphatase (34-104) U/L Total Protein (6.0-8.3) gm/dl Albumin (3.4-5.0) gm/dl Globulin (2.5-4.0) gm/dl Albumin/Globulin Ratio (0.9-2) Vitamin B1 Pending Vitamin B12 235 (180-914) pg/ml 25-OH Vitamin D Total (30-100) ng/ml TSH 1.296 (0.300-4.500) uIu/ml Urine Osmolality (500-800) mOsm/kg Ur Random Sodium mmol/L 09/03/22 09/03/22 Range/Units 08:19 08:19 WBC 11.75 H (4.8-10.8) K/ul RBC 3.97 (3.93-5.22) M/uL Hgb 11.5 L (12.0-16.0) g/dl Hct 35.0 (34.1-44.9) % MCV 88.2 (80.0-100.0) fL MCH 29.0 (25.0-34.0) pg MCHC 32.9 (32.0-36.0) g/dL RDW Std Deviation 43.7 (36.4-46.3) fL RDW Coeff of Bhaskar 13.4 (11.5-14.5) % Plt Count 161 (130-400) K/uL MPV 10.1 (9.4-12.3) fL Sodium 129 L (136-145) mmol/L Potassium 4.5 (3.5-5.1) mmol/L Chloride 97 L (98-107) mmol/L Carbon Dioxide 28 (21-32) mmol/L Anion Gap 4 (3-11) BUN 12 (6-23) mg/dl Creatinine 0.80 (0.6-1.2) mg/dl Est Cr Clr Drug Dosing 44.6 ml/min Est GFR ( Amer) 75.8 ml/min Est GFR (Non-Af Amer) 65.4 ml/min BUN/Creatinine Ratio 15.0 (10-20) Glucose 149 H (70-99(Fasting)) mg/dl POC Glucose (70-99) mg/dl Calcium 8.6 (8.5-10.1) mg/dl Magnesium 1.9 (1.7-2.4) mg/dl Total Bilirubin 1.0 D (0.2-1.0) mg/dl AST 27 (13-39) U/L ALT 17 (7-52) U/L Alkaline Phosphatase 134 H (34-104) U/L Total Protein 6.3 (6.0-8.3) gm/dl Albumin 3.1 L (3.4-5.0) gm/dl Globulin 3.2 (2.5-4.0) gm/dl Albumin/Globulin Ratio 1.0 (0.9-2) Vitamin B1 Vitamin B12 (180-914) pg/ml 25-OH Vitamin D Total (30-100) ng/ml TSH (0.300-4.500) uIu/ml Urine Osmolality (500-800) mOsm/kg Ur Random Sodium mmol/L Diagnostic Findings Chest X-Ray 09/04/22 06:00 XR chest 2V PA/lateral CLINICAL HISTORY: f/u volume overload TECHNIQUE: 2 views of the chest were obtained. Comparison: Comparison is made to chest radiograph 09/03/2022 FINDINGS: No lines and tubes are seen. The cardiomediastinal silhouette is stable. Prominence and cephalization of the vasculature is seen. Small left pleural effusion is seen. IMPRESSION: 1. Mild pulmonary edema. This is somewhat increased from prior exam. 2. Small left pleural effusion, stable. ACT 112: Negative or not required by law. Electronically signed by: Wes Herron M.D. 09/04/2022 8:44 AM PG Care Time/CCT Total # of Minutes Spent Total Time Spent with Patient: Total time spent is greater than 50% in coordination of care (as documented) at patient's floor/unit and/or counseling patient: Coding Level of Care Code 44343 Subseq Hosp Care Lvl 3 Diagnoses Fracture, intertrochanteric, right femur S72.141A Closed right hip fracture S72.001A Hyponatremia E87.1 Hypoxia R09.02 GERD (gastroesophageal reflux disease) K21.9 Dementia F03.B11 Dementia behavioral or psychological symptom: with agitation Dementia severity: moderate Dementia type: unspecified type B12 deficiency E53.8 Vitamin D deficiency E55.9 Diabetes mellitus, type 2 E11.9 Aortic stenosis I35.0 (1) Dementia Dementia behavioral or psychological symptom: with agitation Dementia severity: moderate Dementia type: unspecified type Qualified Code(s): F03.B11 - Unspecified dementia, moderate, with agitation
[2022-09-04] MEDS: INSULIN ASPART PER UNIT SC SCH ×4 (08:42→21:24)
[2022-09-04] MEDS: CETIRIZINE HCL 10 MG TABLET PO SCH (08:43)
[2022-09-04] MEDS: CYANOCOBALAMIN 1000 MCG/ML VIAL IM SCH (08:43)
[2022-09-04] MEDS: POLYETHYLENE (MIRALAX) 17 GM PACK PO SCH ×2 (08:43→20:26)
[2022-09-04] MEDS: PANTOprazole 40 MG TAB PO SCH (08:43)
[2022-09-04] MEDS: CHOLECALCIFEROL 1,000 UNITS 25 MCG TAB PO SCH (08:44)
--- NOTE | 2022-09-04 08:46 | XRay Report ---
XR chest 2V PA/lateral CLINICAL HISTORY: f/u volume overload TECHNIQUE: 2 views of the chest were obtained. Comparison: Comparison is made to chest radiograph 09/03/2022 FINDINGS: No lines and tubes are seen. The cardiomediastinal silhouette is stable. Prominence and cephalization of the vasculature is seen. Small left pleural effusion is seen. IMPRESSION: 1. Mild pulmonary edema. This is somewhat increased from prior exam. 2. Small left pleural effusion, stable. ACT 112: Negative or not required by law. Electronically signed by: Wes Herron M.D. 09/04/2022 8:44 AM
[2022-09-04] MEDS ORDERED: FUROSEMIDE 20 MG TAB PO ONE (09:57)
[2022-09-04] MEDS: CYANOCOBALAMIN (B-12) 500 MCG TABLET PO SCH (10:29)
[2022-09-04] MEDS: ENOXAPARIN INJ 40 MG/0.4 ML SYR SQ SCH (10:47)
--- NOTE | 2022-09-04 12:01 | Electrocardiogram Report ---
Test Reason : Blood Pressure : / mmHG Vent. Rate : 097 BPM Atrial Rate : 097 BPM P-R Int : 214 ms QRS Dur : 070 ms QT Int : 348 ms P-R-T Axes : 067 -29 059 degrees QTc Int : 441 ms Sinus rhythm with 1st degree A-V block Otherwise normal ECG When compared with ECG of 02-SEP-2022 13:14, No significant change was found Confirmed by Poli Gan ([id number]) on 09/04/2022 12:01:19 PM Referred By: REFERRED SELF Confirmed By:Poli Gan
[2022-09-04 13:13] LABS: Appearance Urine Clear (Clear); Bacteria Urine Automated Negative (Negative); Bilirubin Urine Negative (Negative); Blood Urine 1+ (Negative); Cast Urine Automated 0 /lpf (0-5); Color Urine Yellow; Glucose Urine UA Negative (Negative); Ketones Urine Negative (Negative); Leukocyte Esterase Urine Trace (Negative); Nitrite Urine Negative (Negative); Protein Urine Trace (Negative); RBC Urine Automated 0-4 /hpf (0-4); Specific Gravity Urine 1.012 (1.000-1.030); Urobilinogen Urine Negative (Negative)
[2022-09-04] MEDS ORDERED: cefTRIAXone SODIUM 1,000 MG in DEXTROSE 5% 50 ML IV SCH (17:45)
[2022-09-04 18:47] LABS: Influenza A virus by PCR Negative (Neg); Influenza B virus by PCR Negative (Neg); RSV by PCR Negative (Neg); SARS CoV2 RNA(COVID-19)Cepheid NEGATIVE (Negative)
[2022-09-04] MEDS: DOCUSATE SODIUM/SENNA 50/8.6MG TAB PO SCH (20:26)
--- NOTE | 2022-09-04 21:14 | Orthopedic Progress Note ---
Date of Service September 04, 2022 Assessment & Plan (1) Fracture, intertrochanteric, right femur: (2) History of repair of hip fracture: Plan Postop day #2 status post right cephalomedullary nail for intertrochanteric fracture. No suggested changes in the POC. -PT/OT: Weightbearing and range of motion as tolerated to the hip -Pain control per the primary team -DVT PPx: Recommend chemoprophylaxis for at least 6 weeks. Suggest enoxaparin while inpatient and transition to oral aspirin for increased compliance upon discharge -Dressing: May change as needed. Recommend keeping the wound covered while in the hospital. Disposition: Per pain control and rehabilitation needs. Should have wound check for staple removal at 2-3 weeks after surgery. Orthopedic clinic visit for x- rays at 6 weeks postop. Discharge instructions placed. Contact me via [place] text with further questions. Subjective Seen with her daughter at the bedside. Daughter suggested that she is having a rough evening. Much disorientation. She intermittently complains of pain but seems more confused. Review of Systems All systems reviewed & are unremarkable except as noted in HPI & below. Physical Exam Right hip: Dressings had been changed. The new dressing is clean dry and intact. Distally neurovascularly intact. Positive dorsiflex/plantarflex ion/EHL. Constitutional WD/WN, vitals as above no acute distress and not intoxicated appearing Respiratory normal respiratory effort; no labored breathing Cardiovascular Extremities: normal capillary refill Results & Data Results & Data Laboratory Results . Diagnostic Findings Postop radiographs demonstrate stable implant and fracture alignment. No complications. PG Care Time/CCT Total # of Minutes Spent Total Time Spent with Patient: Total time spent is greater than 50% in coordination of care (as documented) at patient's floor/unit and/or counseling patient: Coding Level of Care Code 87507 Post Operative Follow-Up Diagnoses Fracture, intertrochanteric, right femur S72.141A History of repair of hip fracture Z98.890
[2022-09-05] MEDS ORDERED: ACETAMINOPHEN 325 MG TAB PO PRN (06:59)
[2022-09-05 08:17] LABS: Basophils # (auto) 0.06 K/uL (0-0.2); Basophils % (auto) 0.7 %; Eosinophils # (auto) 0.11 K/uL (0-0.50); Eosinophils % (auto) 1.2 %; Hematocrit (blood only) 32.5 % (34.1-44.9); Hemoglobin 10.8 g/dl (12.0-16.0); Immature Granulocytes # (auto) 0.03 K/uL (0.00-0.02); Immature Granulocytes % (auto) 0.3 %; Lymphocytes # (auto) 1.83 K/uL (1.2-3.4); Lymphocytes % (auto) 20.6 %; Mean Corpuscular Hemoglobin 28.6 pg (25.0-34.0); Mean Corpuscular Hgb Conc 33.2 g/dL (32.0-36.0); Mean Corpuscular Volume 86.2 fL (80.0-100.0); Monocytes # (auto) 0.94 K/uL (0.24-0.82); Monocytes % (auto) 10.6 %; Neutrophils # (auto) 5.93 K/uL (1.4-6.5); Neutrophils % (auto) 66.6 %; Platelet Count 210 K/uL (130-400); RDW Coefficient of Variation 13.5 % (11.5-14.5); RDW Standard Deviation 42.4 fL (36.4-46.3); Red Blood Count 3.77 M/uL (3.93-5.22)
--- NOTE | 2022-09-05 08:29 | Hospitalist Progress Note ---
Date of Service September 05, 2022 Assessment & Plan (1) Fracture, intertrochanteric, right femur: Plan: 87yo female with history of dementia presenting with right intertrochanteric hip fracture following a ground level fall. Pain is well controlled at present. NV intact. Age-related osteoporotic intertrochanteric femur fracture POD #3 s/p Right proximal femur intertrochanteric fracture closed reduction and internal fixation with trochanteric entry cephalomedullary fixation nail (Right) - Santi Mclain MD on 09/02 EBL 100cc Overnight 09/02-09/03, reports of patient pulling off her mitts, was given tramadol without improvement, then overnight resident contacted and patient provided IM dose Zyprexa--Prior PCP notes patient had been placed on Risperdal, since discontinued as it was making her more agitated at home. ?Consider seroquel if needed (got dose 12.5mg AM 09/04, no issues since then, available prn) Pain control -- reported pain currently controlled but had been getting tramadol without significant control at times and suspect caused worsening confusion 09/03 along with hyponatremia (reports hallucinations with morphine). -- Tolerating oxycodone with improvement in pain, cognitive status improved compared to yesterday and continues to remain stable. Ordered tylenol to be used FIRST as needed, oxycodone for breakthrough PT/OT consulted for today -- likely will need inpatient rehab vs SNF --> refused to work with PT 09/04, did work with them today Reported L knee/ankle pain --> imaging obtained to r/o other fractures DVT prophylaxis-- Lovenox SQ while inpatient and transition to oral aspirin for increased compliance BID at discharge Will need repeat xrays at 6 weeks with orthopedics CM following -- to discuss w/ daughter about facilities they would like. currently building a ramp for patient for house Constipation Of note, PCP notes IBS w/ constipation, h/o SBO d/t adhesions, h/o diverticular disease w/ abscess s/p colectomy. +BS on exam, nontender. KUB w/o obstruction Continue senna/docusate HS, miralax BID, dulcolax daily added. Suppository overnight if no BM had been afebrile however temp 38.1C in system this afternoon - messaged RN to see if accurate. Check urine cx/CXR. consider repeat flu testing if needed (2) Closed right hip fracture: Plan: as above, PT/OT consulted (3) Hyponatremia: Plan: Na 133-135, TSH wnl. Na 128 on 09/03, did get a dose of lasix 20mg PO x 1 Urine na 33, urine osm 469 Lasix 20mg PO x 1 on 09/04 given O2 requirement and CXR w/ worsened pulmonary congestion-> Na 131 on AM labs since lasix and d/c of tramadol for pain Does appear slightly dehydrated on exam but reporting good PO intake and will hold off any diuretics for now/encourage PO intake BMP in AM (4) Hypoxia: Plan: post operatively has remained on supplemental o2 given 20mg PO lasix 09/03 for volume overload in patient with moderate aortic stenosis (ECHO obtained given +murmur on exam) , possibly from fluids post op Lasix 20mg PO 09/04 for CXR w/ congestion --> titrated to room air today Of note, who was visiting yesterday, per discussion with RN this evening as attempted to see when visiting, staying home as he supposedly positive for "flu" however sounds like possible GI bug RSV/Flu/COVID negative on 09/04 (5) GERD (gastroesophageal reflux disease): Plan: Chronic continue pantoprazole 40mg PO daily -- recently placed on lansoprazole 30mg for a "burning in her throat" that she had complained about at night. Also on levocetirizine for allergic rhinitis symptoms Continue protonix/zyrtec while inpatient No increased reflux reported (6) Dementia: Plan: Patient was previously on medication for dementia. Presently is not taking anything. Prior on risperdal at home per PCP notes, however was d/c'd as stated made her more agitated suspect hospital delirium on top of patient with dementia -Frequent orientation, Avoidance of potentially delirium-inducing agents - benzodiazepines Prior B12 level in 200s in summer w/ PCP- Repeat level B12 low normal at 235. IM replacement ordered while inpatient, would continue PO supplementation at discharge -- switched to PO moving forward given patient fear of needles TSH wnl B1 level pending, consider starting empiric supplementation Zyprexa overnight for agitation/confusion 09/02-09/03 w/ b/l soft mitts, since discontinued Seroquel 12.mg HS added if needed -- did get dose overnight into AM 09/04 and can continue as needed. mood stable during examination 09/05 and was cooperative for me (7) B12 deficiency: Plan: checked due to dementia, prior lows in system low normal 235-- IM replacement while inpatient x 2 doses, switched to PO supplementation as above and would continue at discharge (8) Vitamin D deficiency: Plan: checked due to fracture, low at 22 replacement ordered -- would continue at discharge as well (9) Diabetes mellitus, type 2: Plan: A1c 7.1 most recently (prior 6.9 in 2019) NOT on any medications at home, per PCP notes, diet controlled Glucose on AM labs 129, not given any steroids w/ surgery BSG AC/HS, ISS added BSGs acceptable -- f/u PCP at discharge (10) Aortic stenosis: Plan: on exam, echo obtained given fall however denied symptoms of syncope/angina/dyspnea however has dementia at baseline volume overload suspected post-op from IVF, lasix 20mg PO provided yesterday, repeat for 09/04 and does not appear to be volume overloaded currently -f/u with ECHO in 1-2 years as outpt Plan VTE Prophylaxis - Lovenox 40mg SQ daily , plan to change to ASA 81mg BID at d/c Continued inpatient stay, PT/OT consulted, CM following Check UA/CXR w/ temp this afternoon. May need to consider abdominal imaging given prior hx diverticular abscess however has been nontender on exam Admission and Anticipated Discharge Date Admission Date: September 01, 2022 Subjective eval this morning, sitting up in bed wondering when she is going home pain to her right hip controlled, but having increased pain to her left knee with ambulation, also complaining of ankle pain. stable on room air, ordered medications for pain effective link draining concentrated yellow urine, she is complaining of having some dry mouth mm do appear slightly dry on exam, will provide biotin mouth spray. Will hold off on any further IV fluid/diuretics but encouraged to push oral fluids. Had attempted to reach family, no return call. Will attempt again today -- she states her is a bad diabetic -- will reach out to CM about possibly having someone do a wellness check on him. questions/concerns addressed at this time. Will check xrays of her knee/ankle. This afternoon patient w/ continued PO intake, will hold off on any IV fluids. Review of Systems Review of Systems: All systems reviewed & are unremarkable except as noted in HPI & below Physical Exam Physical Exam: General: WD elderly female resting comfortable upon entry, NAD, just got done working with therapy HEENT: head normocephalic, mmm, trachea midline Resp: diminished in the bases, +cough (no sputum production), faint expiratory wheezing posterior lung matthew improved, bibasilar crackles, on ROOM AIR CV: RRR, +3/6 systolic murmur, calves nontender, pulses palpable, cap refill wnl GI: +BS, +distended, nontender : link draining yellow concentrated urine MSK/Neuro: follows commands as able, dressing to RIGHT hip c/d/i, ice pack in place, tender to palpation along dressing, compartments supple, NVI pain to palpation of LEFT knee, tender w/ dorsiflexion L ankle, no body step- offs, appears possible slight effusion to L knee medially, no erythema Psych: alert to person/knows in hospital but no idea how she got here/year/fall resulting in fracture in the first place but does appear to be much more alert/oriented today and wondering when she will be going home cooperative, pleasant Results & Data Results & Data ([facility]) Vital Signs (Past 12 Hours) Vital Signs Temp Pulse Pulse Pulse Resp BP Pulse Ox 09/05/22 07:50 37.5 C 93 H 20 112/70 93 09/05/22 07:19 37.5 C 92 H 18 113/69 93 09/05/22 04:00 09/05/22 01:10 104 H 09/04/22 22:35 112 H 09/05/22 00:00 09/04/22 21:40 36.9 C 84 20 111/65 92 Pulse Ox Pulse Ox O2 Del Method O2 Del Method O2 Del Method 09/05/22 07:50 Room Air 09/05/22 07:19 Room Air 09/05/22 04:00 92 Room Air 09/05/22 01:10 89 L Room Air 09/04/22 22:35 93 Room Air 09/05/22 00:00 92 Room Air 09/04/22 21:40 Room Air Laboratory Results 09/05/22 09/05/22 09/05/22 Range/Units 12:04 08:05 07:34 WBC (4.8-10.8) K/ul RBC (3.93-5.22) M/uL Hgb (12.0-16.0) g/dl Hct (34.1-44.9) % MCV (80.0-100.0) fL MCH (25.0-34.0) pg MCHC (32.0-36.0) g/dL RDW Std Deviation (36.4-46.3) fL RDW Coeff of Bhaskar (11.5-14.5) % Plt Count (130-400) K/uL MPV (9.4-12.3) fL Immature Gran % (Auto) % Neut % (Auto) % Lymph % (Auto) % Ware % (Auto) % Eos % (Auto) % Baso % (Auto) % Neut # (Auto) (1.4-6.5) K/uL Lymph # (Auto) (1.2-3.4) K/uL Ware # (Auto) (0.24-0.82) K/uL Eos # (Auto) (0-0.50) K/uL Baso # (Auto) (0-0.2) K/uL Immature Gran # (Auto) (0.00-0.02) K/uL Sodium 131 L (136-145) mmol/L Potassium 4.2 (3.5-5.1) mmol/L Chloride 97 L (98-107) mmol/L Carbon Dioxide 29 (21-32) mmol/L Anion Gap 5 (3-11) BUN 19 (6-23) mg/dl Creatinine 0.74 (0.6-1.2) mg/dl Est Cr Clr Drug Dosing 48.2 ml/min Est GFR ( Amer) 83.2 ml/min Est GFR (Non-Af Amer) 71.8 ml/min BUN/Creatinine Ratio 25.7 H (10-20) Glucose 119 H (70-99(Fasting)) mg/dl POC Glucose 123 H 124 H (70-99) mg/dl Calcium 8.7 (8.5-10.1) mg/dl SARS-CoV-2 (PCR) (Negative) Influenza Type A (PCR) (Neg) Influenza Type B (PCR) (Neg) RSV (RT-PCR) (Neg) 1109/04/22 09/04/22 Range/Units 07:34 20:56 17:45 WBC 8.90 (4.8-10.8) K/ul RBC 3.77 L (3.93-5.22) M/uL Hgb 10.8 L (12.0-16.0) g/dl Hct 32.5 L (34.1-44.9) % MCV 86.2 (80.0-100.0) fL MCH 28.6 (25.0-34.0) pg MCHC 33.2 (32.0-36.0) g/dL RDW Std Deviation 42.4 (36.4-46.3) fL RDW Coeff of Bhaskar 13.5 (11.5-14.5) % Plt Count 210 (130-400) K/uL MPV 10.0 (9.4-12.3) fL Immature Gran % (Auto) 0.3 % Neut % (Auto) 66.6 % Lymph % (Auto) 20.6 % Ware % (Auto) 10.6 % Eos % (Auto) 1.2 % Baso % (Auto) 0.7 % Neut # (Auto) 5.93 (1.4-6.5) K/uL Lymph # (Auto) 1.83 (1.2-3.4) K/uL Ware # (Auto) 0.94 H (0.24-0.82) K/uL Eos # (Auto) 0.11 (0-0.50) K/uL Baso # (Auto) 0.06 (0-0.2) K/uL Immature Gran # (Auto) 0.03 H (0.00-0.02) K/uL Sodium (136-145) mmol/L Potassium (3.5-5.1) mmol/L Chloride (98-107) mmol/L Carbon Dioxide (21-32) mmol/L Anion Gap (3-11) BUN (6-23) mg/dl Creatinine (0.6-1.2) mg/dl Est Cr Clr Drug Dosing ml/min Est GFR ( Amer) ml/min Est GFR (Non-Af Amer) ml/min BUN/Creatinine Ratio (10-20) Glucose (70-99(Fasting)) mg/dl POC Glucose 159 H (70-99) mg/dl Calcium (8.5-10.1) mg/dl SARS-CoV-2 (PCR) NEGATIVE (Negative) Influenza Type A (PCR) Negative (Neg) Influenza Type B (PCR) Negative (Neg) RSV (RT-PCR) Negative (Neg) 09/04/22 Range/Units 16:56 WBC (4.8-10.8) K/ul RBC (3.93-5.22) M/uL Hgb (12.0-16.0) g/dl Hct (34.1-44.9) % MCV (80.0-100.0) fL MCH (25.0-34.0) pg MCHC (32.0-36.0) g/dL RDW Std Deviation (36.4-46.3) fL RDW Coeff of Bhaskar (11.5-14.5) % Plt Count (130-400) K/uL MPV (9.4-12.3) fL Immature Gran % (Auto) % Neut % (Auto) % Lymph % (Auto) % Ware % (Auto) % Eos % (Auto) % Baso % (Auto) % Neut # (Auto) (1.4-6.5) K/uL Lymph # (Auto) (1.2-3.4) K/uL Ware # (Auto) (0.24-0.82) K/uL Eos # (Auto) (0-0.50) K/uL Baso # (Auto) (0-0.2) K/uL Immature Gran # (Auto) (0.00-0.02) K/uL Sodium (136-145) mmol/L Potassium (3.5-5.1) mmol/L Chloride (98-107) mmol/L Carbon Dioxide (21-32) mmol/L Anion Gap (3-11) BUN (6-23) mg/dl Creatinine (0.6-1.2) mg/dl Est Cr Clr Drug Dosing ml/min Est GFR ( Amer) ml/min Est GFR (Non-Af Amer) ml/min BUN/Creatinine Ratio (10-20) Glucose (70-99(Fasting)) mg/dl POC Glucose 116 H (70-99) mg/dl Calcium (8.5-10.1) mg/dl SARS-CoV-2 (PCR) (Negative) Influenza Type A (PCR) (Neg) Influenza Type B (PCR) (Neg) RSV (RT-PCR) (Neg) Diagnostic Findings Knee X-Ray 09/05/22 09:51 XR knee LT 1 or 2V routine CLINICAL HISTORY: s/p fall, eval fracture TECHNIQUE: 2 views of the left knee were obtained. Comparison: None available at the time of this dictation. FINDINGS: There is no evidence of an acute fracture. Degenerative changes are seen in the knee joint. No joint effusion is seen. No soft tissue abnormality is seen. IMPRESSION: No evidence of acute osseous injury. ACT 112: Negative or not required by law. Electronically signed by: Wes Herron M.D. 09/05/2022 11:09 AM PG Care Time/CCT Total # of Minutes Spent Total Time Spent with Patient: Total time spent is greater than 50% in coordination of care (as documented) at patient's floor/unit and/or counseling patient: Coding Level of Care Code 91130 Subseq Hosp Care Lvl 3 Diagnoses Fracture, intertrochanteric, right femur S72.141A Closed right hip fracture S72.001A Hyponatremia E87.1 Hypoxia R09.02 GERD (gastroesophageal reflux disease) K21.9 Dementia F03.B11 Dementia behavioral or psychological symptom: with agitation Dementia severity: moderate Dementia type: unspecified type B12 deficiency E53.8 Vitamin D deficiency E55.9 Diabetes mellitus, type 2 E11.9 Aortic stenosis I35.0 (1) Dementia Dementia behavioral or psychological symptom: with agitation Dementia severity: moderate Dementia type: unspecified type Qualified Code(s): F03.B11 - Unspecified dementia, moderate, with agitation
[2022-09-05] MEDS: oxyCODONE HCL IR 5 MG TAB (IMMEDIATE RELEASE) PO PRN ×2 (08:30→13:33)
[2022-09-05] MEDS: CYANOCOBALAMIN (B-12) 500 MCG TABLET PO SCH (08:30)
[2022-09-05] MEDS: CHOLECALCIFEROL 1,000 UNITS 25 MCG TAB PO SCH (08:31)
[2022-09-05] MEDS: CETIRIZINE HCL 10 MG TABLET PO SCH (08:31)
[2022-09-05] MEDS: PANTOprazole 40 MG TAB PO SCH (08:31)
[2022-09-05] MEDS: POLYETHYLENE (MIRALAX) 17 GM PACK PO SCH ×2 (08:32→20:42)
[2022-09-05] MEDS: INSULIN ASPART PER UNIT SC SCH ×4 (08:33→21:36)
[2022-09-05 08:37] LABS: BUN Creatinine Ratio 25.7 (10-20); Calcium 8.7 mg/dl (8.5-10.1); Creatinine Clr Calc Pharmacy 48.2 ml/min; Est GFR (African American) 83.2 ml/min; Est GFR (Non-African American) 71.8 ml/min; Potassium 4.2 mmol/L (3.5-5.1)
[2022-09-05] MEDS: ENOXAPARIN INJ 40 MG/0.4 ML SYR SQ SCH (10:09)
--- NOTE | 2022-09-05 11:10 | XRay Report ---
XR knee LT 1 or 2V routine CLINICAL HISTORY: s/p fall, eval fracture TECHNIQUE: 2 views of the left knee were obtained. Comparison: None available at the time of this dictation. FINDINGS: There is no evidence of an acute fracture. Degenerative changes are seen in the knee joint. No joint effusion is seen. No soft tissue abnormality is seen. IMPRESSION: No evidence of acute osseous injury. ACT 112: Negative or not required by law. Electronically signed by: Wes Herron M.D. 09/05/2022 11:09 AM
[2022-09-05] MEDS: DICLOFENAC SOD 1% GEL 100 GM TUBE EXT SCH ×3 (13:00→20:46)
--- NOTE | 2022-09-05 14:51 | XRay Report ---
XR ankle LT 2V CLINICAL HISTORY: Fall. Left ankle pain. COMPARISON STUDY: None. FINDINGS: No acute fracture or dislocation within the left ankle. No significant soft tissue swelling . No radiopaque foreign bodies. The bones are osteopenic. IMPRESSION: No acute fracture or dislocation within the left ankle. ACT 112: Negative or not required by law. Electronically signed by: Dmitri Serrato M.D. 09/05/2022 2:49 PM
--- NOTE | 2022-09-05 15:11 | XRay Report ---
SINGLE VIEW CHEST CLINICAL HISTORY: Fever. FINDINGS: An AP, portable, upright chest radiograph is compared to study dated 09/04/2022. The cardio mediastinal silhouette is top normal for projection noting atherosclerotic calcification of the thora cic aorta. Chronic interstitial thickening is similar to previous. There is mild bibasilar scarring/a telectasis. No airspace consolidation or large pleural effusion is identified. No pneumothorax is see n. The skeletal structures are osteopenic. The bony thorax is grossly intact. IMPRESSION: No acute cardiopulmonary abnormality. ACT 112: Negative or not required by law. Electronically signed by: Israel Ybarra M.D. 09/05/2022 3:10 PM
[2022-09-05] MEDS ORDERED: LANTUS PER UNIT CHARGE SQ ONE (17:14)
[2022-09-05] MEDS: ACETAMINOPHEN 325 MG TAB PO PRN (17:52)
[2022-09-05] MEDS: DOCUSATE SODIUM/SENNA 50/8.6MG TAB PO SCH (20:42)
--- NOTE | 2022-09-06 08:04 | Hospitalist Progress Note ---
Date of Service September 06, 2022 Assessment & Plan (1) Fracture, intertrochanteric, right femur: Plan: 87yo female with history of dementia presenting with right intertrochanteric hip fracture following a ground level fall. Pain is well controlled at present. NV intact. Age-related osteoporotic intertrochanteric femur fracture POD #4 s/p Right proximal femur intertrochanteric fracture closed reduction and internal fixation with trochanteric entry cephalomedullary fixation nail (Right) - Santi Mclain MD on 09/02. Will need repeat xrays at 6 weeks EBL 100cc Confusion overnight 09/02-08/24 reported, got mitts/tramadol for pain w/o improvement and then given IM dose ZYprexa (prior PCP notes patient had been placed on Risperdal, since discontinued as it was making her more agitated at home. ?Consider seroquel if needed (got dose 12.5mg AM 09/04, has not been given since, available HS prn -- consider changing to scheduled if needed/not given appropriately) B12 checked, LOW, replacement ordered and continued but switched to PO after IM x 2 Pain control -- acetaminophen to be given first line, oxycodone for breakthrough. Has not been given tylenol since 09/05 but did get dose oycodone this morning. Consider switching to scheduled tylenol but will hold off for now and monitor for any fevers (temp 38.1C in system 09/05 however unclear if was accurate per discussion with chief nursing executive nurses had obtained vitals and not reported that finding to anyone. Low drade temp 37.8C checked upon repeat asking, tylenol administered. Suspect atelectasis from not taking deep breaths, encouraged use of incentive spirometer Of note, had worsening confusion w/ tramadol along w/ hyponatremia. DISCONTINUED, AVOID in future Bowel regimen -- scheduled senna/docusate HS, miralax BID, dulcolax daily added. Suppository overnight if no BM -- Asked RN to provide enema overnight 09/04, was not able to be completed. Asked again 09/05, was given last evening --> BM overnight, small harder BM then episode of incontinence PCP notes IBS w/ constipation, h/o SBO d/t adhesions, h/o diverticular disease w/ abscess s/p colectomy PT/OT consulted -- SNF, CM following. Finally able to contact family 09/05 to send referrals DVT prophylaxis -- Lovenox SQ while inpatient and transition to oral aspirin for increased compliance BID at discharge WBC wnl on AM labs, no left shift. Na improved to 133 w/ adequate pain control and lasix in days past (not given since 09/04 for volume overload on CXR, likely from IVF given post-op in patient w/ moderate aortic stenosis) Avoiding further IVF, good appetite and intake of water when provided TB elevated 1.5 slightly (?dehydration), ALP elevated but always with elevation. Prior cholecystectomy, NONtender on exam to abdomen Will monitor labs in AM/any abdominal pain. Imaging if either occur (2) Dementia: Plan: Patient was previously on medication for dementia. Presently is not taking anything. Prior on risperdal at home per PCP notes, however was d/c'd as stated made her more agitated suspect hospital delirium on top of patient with dementia Prior B12 level in 200s in summer w/ PCP- Repeat level B12 low normal at 235. IM replacement ordered while inpatient but switched to PO given patient reported fear of needles, did get 2 doses IM, continues on PO -- continue at d/c TSH wnl B1 level pending, will start 100mg daily empirically in the meantime Frequent orientation, Avoidance of potentially delirium-inducing agents - benzod iazepines Zyprexa overnight for agitation/confusion 09/02-09/03 w/ b/l soft mitts, since discontinued Seroquel 12.mg HS added if needed -- did get dose overnight into AM 09/04 and can continue as needed. mood stable during examination 09/05-09/06 and was cooperative for me (3) Closed right hip fracture: Plan: as above, PT/OT consulted (4) Hyponatremia: Plan: Na 133-135, TSH wnl. Na 128 on 09/03, did get a dose of lasix 20mg PO x 1 Urine na 33, urine osm 469 Lasix 20mg PO x 1 on 09/04 given O2 requirement and CXR w/ worsened pulmonary congestion-> Na 131 since lasix 09/04 & no further tramadol use, oxycodone added for pain control and appears to be effective Slight dehydration on exam but good PO intake when offered water and encouraged nursing to continue for today to avoid IVF/excess volume given congestion day prior. Link w/ concentrated urine Na 133 on AM labs and will continued to monitor (5) Hypoxia: Plan: post operatively has remained on supplemental o2 given 20mg PO lasix 09/03 for volume overload in patient with moderate aortic stenosis (ECHO obtained given +murmur on exam) , possibly from fluids post op Lasix 20mg PO 09/04 for CXR w/ congestion --> titrated to room air and has remained on room air overnight pulse ox w/ drop -- ordered 2L HS Repeat RSV/Flu/COVID negative 09/04 STABLE ON ROOM AIR (6) GERD (gastroesophageal reflux disease): Plan: Chronic continue pantoprazole 40mg PO daily -- recently placed on lansoprazole 30mg for a "burning in her throat" that she had complained about at night. Also on levocetirizine for allergic rhinitis symptoms Continue protonix/zyrtec while inpatient No increased reflux reported (7) B12 deficiency: Plan: checked due to dementia, prior lows in system low normal 235-- IM replacement while inpatient x 2 doses, switched to PO supplementation as above and would continue at discharge (8) Vitamin D deficiency: Plan: checked due to fracture, low at 22 replacement ordered -- would continue at discharge as well (9) Diabetes mellitus, type 2: Plan: A1c 7.1 most recently (prior 6.9 in 2019) NOT on any medications at home, per PCP notes, diet controlled Glucose on AM labs 125, not given any steroids w/ surgery BSG AC/HS, ISS added BSGs acceptable -- f/u PCP at discharge Of note, error on BSG yesterday afternoon to 350s, repeat 105 , 122 and suspect not cleaned the meter and has remained stable (10) Aortic stenosis: Plan: on exam, echo obtained given fall however denied symptoms of syncope/angina/dyspnea however has dementia at baseline volume overload suspected post-op from IVF, lasix 20mg PO provided yesterday, repeat for 09/04 and does not appear to be volume overloaded currently -f/u with ECHO in 1-2 years as outpt Plan VTE Prophylaxis - Lovenox 40mg SQ daily , plan to change to ASA 81mg BID at d/c Continued inpatient stay, PT/OT consulted, CM following Check UA/CXR w/ temp this afternoon. May need to consider abdominal imaging given prior hx diverticular abscess however has been nontender on exam Admission and Anticipated Discharge Date Admission Date: September 01, 2022 Supervising Physician Co-Signing Physician Notes Chart reviewed. Case discussed with PA. Agree with assessment and plan. Subjective Eval this morning, much more awake/alert, knows she is in [employer] but still doesn't rememeber falling/breaking her hip. Pain reported controlled. Had small BM overnight and some incontinence this morning. Denies any abdominal pain. No nausea/vomiting. Does have dry mouth -- discussed IVF but RN to encourage PO water intake as she does have good intake when offered. No further temps/fevers. Review of Systems Review of Systems: All systems reviewed & are unremarkable except as noted in HPI & below Physical Exam Physical Exam: General: WD elderly female resting comfortable upon entry, NAD, more alert today but still w/ dementia at baseline HEENT: head normocephalic, mm slightly dry (improving w/ water provided), trachea midline Resp: diminished in the bases, +cough (less, no sputum production), faint expiratory wheezing posterior lung matthew improved, bibasilar crackles, on ROOM AIR 94% CV: RRR, +3/6 systolic murmur, calves nontender, pulses palpable, cap refill wnl GI: +BS, +distended (less), nontender : link draining concentrated urine (less concentrated than day before) MSK/Neuro: follows commands as able, no slurred speech/facial droop dressing to RIGHT hip c/d/i, ice pack in place, tender to palpation along dressing (less tender), compartments supple, NVI pain to palpation of LEFT knee, tender w/ dorsiflexion L ankle, no body step- offs, appears possible slight effusion to L knee medially, no erythema (chronic L pain reported by in evening 09/05) Psych: alert to person/knows in hospital in [employer] but not why/cannot remember falling/hip fracture cooperative and pleasant for most part, but dementia at baseline, poor short term memory Results & Data Results & Data ([facility]) Vital Signs (Past 12 Hours) Vital Signs Temp Pulse Resp BP Pulse Ox Pulse Ox O2 Del Method 09/06/22 07:30 37.1 C 97 H 16 129/78 95 Room Air 09/06/22 00:00 97 09/06/22 00:58 Room Air 09/05/22 21:30 36.6 C 86 18 108/63 97 Room Air O2 Del Method 09/06/22 07:30 09/06/22 00:00 Room Air 09/06/22 00:58 09/05/22 21:30 Laboratory Results 09/06/22 09/06/22 09/06/22 Range/Units 11:57 08:25 08:25 WBC 7.71 (4.8-10.8) K/ul RBC 3.71 L (3.93-5.22) M/uL Hgb 10.8 L (12.0-16.0) g/dl Hct 32.1 L (34.1-44.9) % MCV 86.5 (80.0-100.0) fL MCH 29.1 (25.0-34.0) pg MCHC 33.6 (32.0-36.0) g/dL RDW Std Deviation 41.9 (36.4-46.3) fL RDW Coeff of Bhaskar 13.3 (11.5-14.5) % Plt Count 236 (130-400) K/uL MPV 9.7 (9.4-12.3) fL Immature Gran % (Auto) 0.3 % Neut % (Auto) 69.0 % Lymph % (Auto) 18.2 % Maverick % (Auto) 11.0 % Eos % (Auto) 0.9 % Baso % (Auto) 0.6 % Neut # (Auto) 5.32 (1.4-6.5) K/uL Lymph # (Auto) 1.40 (1.2-3.4) K/uL Maverick # (Auto) 0.85 H (0.24-0.82) K/uL Eos # (Auto) 0.07 (0-0.50) K/uL Baso # (Auto) 0.05 (0-0.2) K/uL Immature Gran # (Auto) 0.02 (0.00-0.02) K/uL Sodium 133 L (136-145) mmol/L Potassium 4.1 (3.5-5.1) mmol/L Chloride 99 (98-107) mmol/L Carbon Dioxide 29 (21-32) mmol/L Anion Gap 5 (3-11) BUN 18 (6-23) mg/dl Creatinine 0.65 (0.6-1.2) mg/dl Est Cr Clr Drug Dosing 54.9 ml/min Est GFR ( Amer) 91.2 ml/min Est GFR (Non-Af Amer) 78.7 ml/min BUN/Creatinine Ratio 27.7 H (10-20) Glucose 125 H (70-99(Fasting)) mg/dl POC Glucose 118 H (70-99) mg/dl Calcium 8.7 (8.5-10.1) mg/dl Total Bilirubin 1.5 H (0.2-1.0) mg/dl AST 21 (13-39) U/L ALT 10 (7-52) U/L Alkaline Phosphatase 145 H (34-104) U/L Total Protein 6.4 (6.0-8.3) gm/dl Albumin 3.0 L (3.4-5.0) gm/dl Globulin 3.4 (2.5-4.0) gm/dl Albumin/Globulin Ratio 0.9 (0.9-2) 09/06/22 09/05/22 09/05/22 Range/Units 08:09 20:53 17:26 WBC (4.8-10.8) K/ul RBC (3.93-5.22) M/uL Hgb (12.0-16.0) g/dl Hct (34.1-44.9) % MCV (80.0-100.0) fL MCH (25.0-34.0) pg MCHC (32.0-36.0) g/dL RDW Std Deviation (36.4-46.3) fL RDW Coeff of Bhaskar (11.5-14.5) % Plt Count (130-400) K/uL MPV (9.4-12.3) fL Immature Gran % (Auto) % Neut % (Auto) % Lymph % (Auto) % Maverick % (Auto) % Eos % (Auto) % Baso % (Auto) % Neut # (Auto) (1.4-6.5) K/uL Lymph # (Auto) (1.2-3.4) K/uL Maverick # (Auto) (0.24-0.82) K/uL Eos # (Auto) (0-0.50) K/uL Baso # (Auto) (0-0.2) K/uL Immature Gran # (Auto) (0.00-0.02) K/uL Sodium (136-145) mmol/L Potassium (3.5-5.1) mmol/L Chloride (98-107) mmol/L Carbon Dioxide (21-32) mmol/L Anion Gap (3-11) BUN (6-23) mg/dl Creatinine (0.6-1.2) mg/dl Est Cr Clr Drug Dosing ml/min Est GFR ( Amer) ml/min Est GFR (Non-Af Amer) ml/min BUN/Creatinine Ratio (10-20) Glucose (70-99(Fasting)) mg/dl POC Glucose 127 H 132 H 122 H (70-99) mg/dl Calcium (8.5-10.1) mg/dl Total Bilirubin (0.2-1.0) mg/dl AST (13-39) U/L ALT (7-52) U/L Alkaline Phosphatase (34-104) U/L Total Protein (6.0-8.3) gm/dl Albumin (3.4-5.0) gm/dl Globulin (2.5-4.0) gm/dl Albumin/Globulin Ratio (0.9-2) 09/05/22 09/05/22 Range/Units 17:21 16:55 WBC (4.8-10.8) K/ul RBC (3.93-5.22) M/uL Hgb (12.0-16.0) g/dl Hct (34.1-44.9) % MCV (80.0-100.0) fL MCH (25.0-34.0) pg MCHC (32.0-36.0) g/dL RDW Std Deviation (36.4-46.3) fL RDW Coeff of Bhaskar (11.5-14.5) % Plt Count (130-400) K/uL MPV (9.4-12.3) fL Immature Gran % (Auto) % Neut % (Auto) % Lymph % (Auto) % Maverick % (Auto) % Eos % (Auto) % Baso % (Auto) % Neut # (Auto) (1.4-6.5) K/uL Lymph # (Auto) (1.2-3.4) K/uL Maverick # (Auto) (0.24-0.82) K/uL Eos # (Auto) (0-0.50) K/uL Baso # (Auto) (0-0.2) K/uL Immature Gran # (Auto) (0.00-0.02) K/uL Sodium (136-145) mmol/L Potassium (3.5-5.1) mmol/L Chloride (98-107) mmol/L Carbon Dioxide (21-32) mmol/L Anion Gap (3-11) BUN (6-23) mg/dl Creatinine (0.6-1.2) mg/dl Est Cr Clr Drug Dosing ml/min Est GFR ( Amer) ml/min Est GFR (Non-Af Amer) ml/min BUN/Creatinine Ratio (10-20) Glucose (70-99(Fasting)) mg/dl POC Glucose 105 H 323 H* (70-99) mg/dl Calcium (8.5-10.1) mg/dl Total Bilirubin (0.2-1.0) mg/dl AST (13-39) U/L ALT (7-52) U/L Alkaline Phosphatase (34-104) U/L Total Protein (6.0-8.3) gm/dl Albumin (3.4-5.0) gm/dl Globulin (2.5-4.0) gm/dl Albumin/Globulin Ratio (0.9-2) PG Care Time/CCT Total # of Minutes Spent Total Time Spent with Patient: Total time spent is greater than 50% in coordination of care (as documented) at patient's floor/unit and/or counseling patient: Coding Level of Care Code 87430 Subseq Hosp Care Lvl 3 Diagnoses Fracture, intertrochanteric, right femur S72.141A Dementia F03.B11 Dementia behavioral or psychological symptom: with agitation Dementia severity: moderate Dementia type: unspecified type Closed right hip fracture S72.001A Hyponatremia E87.1 Hypoxia R09.02 GERD (gastroesophageal reflux disease) K21.9 B12 deficiency E53.8 Vitamin D deficiency E55.9 Diabetes mellitus, type 2 E11.9 Aortic stenosis I35.0 (1) Dementia Dementia behavioral or psychological symptom: with agitation Dementia severity: moderate Dementia type: unspecified type Qualified Code(s): F03.B11 - Unspecified dementia, moderate, with agitation
[2022-09-06] MEDS: DICLOFENAC SOD 1% GEL 100 GM TUBE EXT SCH ×4 (08:44→21:30)
[2022-09-06] MEDS: CETIRIZINE HCL 10 MG TABLET PO SCH (08:45)
[2022-09-06] MEDS: CYANOCOBALAMIN (B-12) 500 MCG TABLET PO SCH (08:45)
[2022-09-06] MEDS: CHOLECALCIFEROL 1,000 UNITS 25 MCG TAB PO SCH (08:45)
[2022-09-06] MEDS: PANTOprazole 40 MG TAB PO SCH (08:45)
[2022-09-06] MEDS: POLYETHYLENE (MIRALAX) 17 GM PACK PO SCH ×2 (08:46→21:30)
[2022-09-06 08:47] LABS: Basophils # (auto) 0.05 K/uL (0-0.2); Basophils % (auto) 0.6 %; Eosinophils # (auto) 0.07 K/uL (0-0.50); Eosinophils % (auto) 0.9 %; Hematocrit (blood only) 32.1 % (34.1-44.9); Hemoglobin 10.8 g/dl (12.0-16.0); Immature Granulocytes # (auto) 0.02 K/uL (0.00-0.02); Immature Granulocytes % (auto) 0.3 %; Lymphocytes % (auto) 18.2 %; Mean Corpuscular Hemoglobin 29.1 pg (25.0-34.0); Mean Corpuscular Hgb Conc 33.6 g/dL (32.0-36.0); Mean Corpuscular Volume 86.5 fL (80.0-100.0); Mean Platelet Volume 9.7 fL (9.4-12.3); Monocytes # (auto) 0.85 K/uL (0.24-0.82); Neutrophils # (auto) 5.32 K/uL (1.4-6.5); Platelet Count 236 K/uL (130-400); RDW Coefficient of Variation 13.3 % (11.5-14.5); RDW Standard Deviation 41.9 fL (36.4-46.3); Red Blood Count 3.71 M/uL (3.93-5.22); White Blood Count 7.71 K/ul (4.8-10.8)
[2022-09-06] MEDS: oxyCODONE HCL IR 5 MG TAB (IMMEDIATE RELEASE) PO PRN ×3 (08:50→22:22)
[2022-09-06] MEDS: INSULIN ASPART PER UNIT SC SCH ×4 (08:56→22:37)
[2022-09-06 09:12] LABS: Albumin Globulin Ratio 0.9 (0.9-2); BUN Creatinine Ratio 27.7 (10-20); Bilirubin,Total 1.5 mg/dl (0.2-1.0); Calcium 8.7 mg/dl (8.5-10.1); Creatinine Clr Calc Pharmacy 54.9 ml/min; Est GFR (African American) 91.2 ml/min; Est GFR (Non-African American) 78.7 ml/min; Globulin 3.4 gm/dl (2.5-4.0); Potassium 4.1 mmol/L (3.5-5.1); Total Protein 6.4 gm/dl (6.0-8.3)
[2022-09-06] MEDS: ENOXAPARIN INJ 40 MG/0.4 ML SYR SQ SCH (10:01)
[2022-09-06] MEDS ORDERED: ALBUTEROL HFA 8 GM INHALER INH PRN (15:42)
[2022-09-06] MEDS: THIAMINE HCL 100 MG TAB PO SCH (15:54)
[2022-09-06] MEDS: DOCUSATE SODIUM/SENNA 50/8.6MG TAB PO SCH (21:30)
[2022-09-06] MEDS: QUEtiapine FUMARATE 25 MG TABLET PO PRN (22:23)
[2022-09-07 06:23] LABS: Hematocrit (blood only) 33.4 % (34.1-44.9); Hemoglobin 11.1 g/dl (12.0-16.0); Mean Corpuscular Hemoglobin 28.6 pg (25.0-34.0); Mean Corpuscular Hgb Conc 33.2 g/dL (32.0-36.0); Mean Corpuscular Volume 86.1 fL (80.0-100.0); Mean Platelet Volume 9.9 fL (9.4-12.3); Platelet Count 264 K/uL (130-400); RDW Coefficient of Variation 13.2 % (11.5-14.5); RDW Standard Deviation 41.6 fL (36.4-46.3); Red Blood Count 3.88 M/uL (3.93-5.22); White Blood Count 8.28 K/ul (4.8-10.8)
[2022-09-07 06:47] LABS: Albumin Level 3.1 gm/dl (3.4-5.0); BUN Creatinine Ratio 29.9 (10-20); Bilirubin Direct 0.3 mg/dl (0-0.2); Bilirubin,Total 1.5 mg/dl (0.2-1.0); Calcium 8.7 mg/dl (8.5-10.1); Creatinine Clr Calc Pharmacy 53.3 ml/min; Est GFR (African American) 90.3 ml/min; Est GFR (Non-African American) 77.9 ml/min; Potassium 3.7 mmol/L (3.5-5.1); Total Protein 6.6 gm/dl (6.0-8.3)
--- NOTE | 2022-09-07 07:57 | Hospitalist Progress Note ---
Date of Service September 07, 2022 Assessment & Plan (1) Fracture, intertrochanteric, right femur: Plan: 87yo female with history of dementia presenting with right intertrochanteric hip fracture following a ground level fall. Pain is well controlled at present. NV intact. Age-related osteoporotic intertrochanteric femur fracture POD #5 s/p Right proximal femur intertrochanteric fracture closed reduction and internal fixation with trochanteric entry cephalomedullary fixation nail (Right) - Santi Mclain MD on 09/02. Will need repeat xrays at 6 weeks EBL 100cc Confusion overnight 09/02-08/24 reported, got mitts/tramadol for pain w/o improvement and then given IM dose ZYprexa (prior PCP notes patient had been placed on Risperdal, since discontinued as it was making her more agitated at home. ?Consider seroquel if needed (got dose 12.5mg AM 09/04, has not been given since, available HS prn -- consider changing to scheduled if needed/not given appropriately) B12 checked, LOW, replacement ordered and continued but switched to PO after IM x 2 Pain control -- acetaminophen to be given first line, oxycodone for breakthrough. Has not been given tylenol since 09/05 but has been continuing to get oxycodone, which could be making delirium worse in patient with underlying dementia. Had initially improved since discontinuation of tramadol w/ hypoNa in days past Bowel regimen Hadn't moved bowels in 4+ days, was able to finally have multiple BMs since 09/06. Continue bowel regimen miralax BID, senna/docusate, docusate, suppository if needed PT/OT -- SNF planned - CM following- referrals sent. DVT proph - Lovenox while inpatient, ASA 81mg BID at discharge Na 132 on am labs, repeat urine sodium level. Concentrated urine. (CXR 09/04 congestion, given lasix for hypoxia, Na had improved. Likely from IVF for surgery given moderate on ECHO) Was given seroquel 12.5mg HS overnight for agitation/pulled out her IV LFTs not improved. Prior CCY. Nontender on exam and moving bowels starting 09/06, multiple BMs (2) Dementia: Plan: Patient was previously on medication for dementia. Presently is not taking any thing. Prior on risperdal at home per PCP notes, however was d/c'd as stated made her more agitated suspect hospital delirium on top of patient with dementia Prior B12 level in 200s in summer w/ PCP- Repeat level B12 low normal at 235 --> given IM x 2, transitioned to PO and continue at d/c TSH wnl B1 pending, started empiric thiamine -- consider continue at d/c Frequent orientation, Avoidance of potentially delirium-inducing agents - benzodiazepines Zyprexa overnight for agitation/confusion 09/02-09/03 w/ b/l soft mitts, since discontinued Seroquel 12.mg HS added if needed -- did get dose overnight into AM 09/04 Additional dose overnight 09/06-09/07 for agitation/confusion, suspect from delirium/possible oxycodone use as was given at 22:22 -- again, see above, made tylenol scheduled for pain control and would limit opiates for breakthrough (3) Closed right hip fracture: Plan: as above, PT/OT consulted (4) Hyponatremia: Plan: Na 133-135, TSH wnl. Na 128 on 09/03, did get a dose of lasix 20mg PO x 1 Urine na 33, urine osm 469 Lasix 20mg PO x 1 on 09/04 given O2 requirement and CXR w/ worsened pulmonary congestion-> Na 131 since lasix 09/04 & no further tramadol use, oxycodone added for pain control and appears to be effective Slight dehydration on exam 09/06 but good PO intake when offered water and encouraged nursing to continue for today to avoid IVF/excess volume given congestion day prior as link w/ concentrated urine Na decreased to 132 on Am labs Repeating urine sodium, 500cc NSS ordered for dehydration on examination (5) Hypoxia: Plan: post operatively had remained on supplemental o2 without ability to titrate off ECHO obtained --+Murmur on exam, MODERATE AORTIC STENOSIS, likely volume overload on CXR from IVF w/ surgery and lasix provided and has remained stable on room air O2 ordered for overnight given hypoxia on overnight sleep study once off O2 -- has not been using RSV/flu/covid negative 09/04 Supplemental O2 as needed to maintain sats 97% on RA, no cough noted on exam Monitor (6) GERD (gastroesophageal reflux disease): Plan: Chronic continue pantoprazole 40mg PO daily -- recently placed on lansoprazole 30mg for a "burning in her throat" that she had complained about at night. Also on levocetirizine for allergic rhinitis symptoms Continue protonix/zyrtec while inpatient No increased reflux reported (7) B12 deficiency: Plan: checked due to dementia, prior lows in system low normal 235-- IM replacement while inpatient x 2 doses, switched to PO supplementation as above and would continue at discharge (8) Vitamin D deficiency: Plan: checked due to fracture, low at 22 replacement ordered -- would continue at discharge as well (9) Diabetes mellitus, type 2: Plan: A1c 7.1 most recently (prior 6.9 in 2019) NOT on any medications at home, per PCP notes, diet controlled Glucose on AM labs 125, not given any steroids w/ surgery BSG AC/HS, ISS added BSGs acceptable -- f/u PCP at discharge Of note, error on BSG 09/05 afternoon to 350s, repeat 105 , 122 and suspect not cleaned the meter and has remained stable as all values have been stable since that time without need for increased insulin coverage Would rec meds at SNF ISS/follow up with PCP after SNF as A1c 7.1 and benefit from better control, especially given prior reports of family bringing in lots of candy but were instructed to take this home. (10) Aortic stenosis: Plan: on exam, echo obtained given fall however denied symptoms of syncope/angina/dyspnea however has dementia at baseline volume overload suspected post-op from IVF, lasix 20mg PO provided 09/03, repeated 09/04 Does not appear to be volume overloaded, actually appears dry on examination -f/u with ECHO in 1-2 years as outpt (11) Elevated LFTs: Plan: Prior elevation TB 1.5, unchanged on repeat ALP elevated, ?bone given fracture, chroinc elevations. Has had cholecystectomy in the past ?medication related/dehydrated/volume contraction? Monitor on repeat w/ IVF -- of note, Seroquel can also cause elevated LFTs (not checked after given on 09/04 however Tb initially noted to be elevated after giv en on 09/04) Plan VTE Prophylaxis - Lovenox 40mg SQ daily , plan to change to ASA 81mg BID at d/c PT/OT consulted --SNF at d/c. CM following and referrals sent Moving bowels -- continued bowel regimen Changed Tylenol to scheduled for pain control/limit opiates to limit confusion NSS ordered for 500cc for dehydration on examination Admission and Anticipated Discharge Date Admission Date: September 01, 2022 Subjective Patient seen this morning, sleeping in bed, NAD. Awakes easily to name, [facility] [employer]. Multiple BM yesterday, larger pasty brown BM last evening. Not painful on exam, urine does still have concentrated urine in bag, had been pushing oral fluids great yesterday. Remains on room air. Repeating urine sodium, consideration for 250cc nss but will need to monitor for any volume overload. No further temps/WBC elevation on labs -- days prior suspected to be errors. Of note, no one had given dose of tylenol for days, to be used first line. Will change to scheduled for today to continue and hope to limit opiates as could be contributing to worsening confusion. Review of Systems Review of Systems: All systems reviewed & are unremarkable except as noted in HPI & below Physical Exam Physical Exam: General: WD elderly female resting comfortable upon entry, NAD, pleasant but confused, slightly worse than day prior but not combative HEENT: head normocephalic, mm dry, trachea midline Resp: diminished in the bases, bibasilar crackles, on room air 97% CV: RRR, +3/6 systolic murmur, calves nontender, pulses palpable, cap refill wnl GI: +BS, less distension, nontender : link draining darkened concentrated urine MSK/Neuro: follows commands as able, no slurred speech/facial droop dressing to RIGHT hip c/d/i, ice pack in place, tender to palpation along dressing (less tender), compartments supple, NVI pain to palpation of LEFT knee, tender w/ dorsiflexion L ankle, no body step- offs, appears possible slight effusion to L knee medially, no erythema (chronic L pain reported by in evening 09/05) no facial droop/focal deficit Psych: alert to person, not place/time, dementia at baseline, poor short term memory not alert to year/location Results & Data Results & Data ([facility]) Vital Signs (Past 12 Hours) Vital Signs Temp Pulse Resp BP Pulse Ox Pulse Ox O2 Del Method 09/07/22 05:32 95 09/07/22 01:18 36.7 C 107 H 14 112/71 94 Room Air 09/06/22 21:30 Room Air 09/06/22 21:30 95 O2 Del Method 09/07/22 05:32 Room Air 09/07/22 01:18 09/06/22 21:30 09/06/22 21:30 Room Air Laboratory Results 09/07/22 09/07/22 09/07/22 Range/Units 12:10 10:55 08:13 WBC (4.8-10.8) K/ul RBC (3.93-5.22) M/uL Hgb (12.0-16.0) g/dl Hct (34.1-44.9) % MCV (80.0-100.0) fL MCH (25.0-34.0) pg MCHC (32.0-36.0) g/dL RDW Std Deviation (36.4-46.3) fL RDW Coeff of Bhaskar (11.5-14.5) % Plt Count (130-400) K/uL MPV (9.4-12.3) fL Sodium (136-145) mmol/L Potassium (3.5-5.1) mmol/L Chloride (98-107) mmol/L Carbon Dioxide (21-32) mmol/L Anion Gap (3-11) BUN (6-23) mg/dl Creatinine (0.6-1.2) mg/dl Est Cr Clr Drug Dosing ml/min Est GFR ( Amer) ml/min Est GFR (Non-Af Amer) ml/min BUN/Creatinine Ratio (10-20) Glucose (70-99(Fasting)) mg/dl POC Glucose 162 H (70-99) mg/dl Calcium (8.5-10.1) mg/dl Total Bilirubin (0.2-1.0) mg/dl Direct Bilirubin (0-0.2) mg/dl AST (13-39) U/L ALT (7-52) U/L Alkaline Phosphatase (34-104) U/L B-Natriuretic Peptide 216 H (0-100) pg/ml Total Protein (6.0-8.3) gm/dl Albumin (3.4-5.0) gm/dl Ur Random Sodium 78 mmol/L Lyme Disease IgG Ab (Negative) Lyme Disease IgM Ab (Negative) 09/07/22 09/07/22 09/07/22 Range/Units 07:58 05:54 05:53 WBC (4.8-10.8) K/ul RBC (3.93-5.22) M/uL Hgb (12.0-16.0) g/dl Hct (34.1-44.9) % MCV (80.0-100.0) fL MCH (25.0-34.0) pg MCHC (32.0-36.0) g/dL RDW Std Deviation (36.4-46.3) fL RDW Coeff of Bhaskar (11.5-14.5) % Plt Count (130-400) K/uL MPV (9.4-12.3) fL Sodium 132 L (136-145) mmol/L Potassium 3.7 (3.5-5.1) mmol/L Chloride 97 L (98-107) mmol/L Carbon Dioxide 29 (21-32) mmol/L Anion Gap 6 (3-11) BUN 20 (6-23) mg/dl Creatinine 0.67 (0.6-1.2) mg/dl Est Cr Clr Drug Dosing 53.3 ml/min Est GFR ( Amer) 90.3 ml/min Est GFR (Non-Af Amer) 77.9 ml/min BUN/Creatinine Ratio 29.9 H (10-20) Glucose 124 H (70-99(Fasting)) mg/dl POC Glucose 124 H (70-99) mg/dl Calcium 8.7 (8.5-10.1) mg/dl Total Bilirubin 1.5 H (0.2-1.0) mg/dl Direct Bilirubin 0.3 H (0-0.2) mg/dl AST 33 (13-39) U/L ALT 14 (7-52) U/L Alkaline Phosphatase 159 H (34-104) U/L B-Natriuretic Peptide (0-100) pg/ml Total Protein 6.6 (6.0-8.3) gm/dl Albumin 3.1 L (3.4-5.0) gm/dl Ur Random Sodium mmol/L Lyme Disease IgG Ab Negative (Negative) Lyme Disease IgM Ab Negative (Negative) 09/07/22 09/06/22 09/06/22 Range/Units 05:53 20:55 17:18 WBC 8.28 (4.8-10.8) K/ul RBC 3.88 L (3.93-5.22) M/uL Hgb 11.1 L (12.0-16.0) g/dl Hct 33.4 L (34.1-44.9) % MCV 86.1 (80.0-100.0) fL MCH 28.6 (25.0-34.0) pg MCHC 33.2 (32.0-36.0) g/dL RDW Std Deviation 41.6 (36.4-46.3) fL RDW Coeff of Bhaskar 13.2 (11.5-14.5) % Plt Count 264 (130-400) K/uL MPV 9.9 (9.4-12.3) fL Sodium (136-145) mmol/L Potassium (3.5-5.1) mmol/L Chloride (98-107) mmol/L Carbon Dioxide (21-32) mmol/L Anion Gap (3-11) BUN (6-23) mg/dl Creatinine (0.6-1.2) mg/dl Est Cr Clr Drug Dosing ml/min Est GFR ( Amer) ml/min Est GFR (Non-Af Amer) ml/min BUN/Creatinine Ratio (10-20) Glucose (70-99(Fasting)) mg/dl POC Glucose 133 H 163 H (70-99) mg/dl Calcium (8.5-10.1) mg/dl Total Bilirubin (0.2-1.0) mg/dl Direct Bilirubin (0-0.2) mg/dl AST (13-39) U/L ALT (7-52) U/L Alkaline Phosphatase (34-104) U/L B-Natriuretic Peptide (0-100) pg/ml Total Protein (6.0-8.3) gm/dl Albumin (3.4-5.0) gm/dl Ur Random Sodium mmol/L Lyme Disease IgG Ab (Negative) Lyme Disease IgM Ab (Negative) PG Care Time/CCT Total # of Minutes Spent Total Time Spent with Patient: Total time spent is greater than 50% in coordination of care (as documented) at patient's floor/unit and/or counseling patient: Coding Level of Care Code 37019 Subseq Hosp Care Lvl 3 Diagnoses Fracture, intertrochanteric, right femur S72.141A Dementia F03.B11 Dementia behavioral or psychological symptom: with agitation Dementia severity: moderate Dementia type: unspecified type Closed right hip fracture S72.001A Hyponatremia E87.1 Hypoxia R09.02 GERD (gastroesophageal reflux disease) K21.9 B12 deficiency E53.8 Vitamin D deficiency E55.9 Diabetes mellitus, type 2 E11.9 Aortic stenosis I35.0 Elevated LFTs R79.89 (1) Dementia Dementia behavioral or psychological symptom: with agitation Dementia severity: moderate Dementia type: unspecified type Qualified Code(s): F03.B11 - Unspecified dementia, moderate, with agitation
[2022-09-07] MEDS ORDERED: SODIUM CHLORIDE 0.9% 500 ML IV SCH ×2 (08:00→12:30)
[2022-09-07] MEDS: INSULIN ASPART PER UNIT SC SCH ×4 (09:10→21:31)
[2022-09-07] MEDS: POLYETHYLENE (MIRALAX) 17 GM PACK PO SCH ×2 (09:11→22:25)
[2022-09-07 09:53] LABS: Lyme Ab IgG w/WB Rflx Negative (Negative); Lyme Ab IgM w/WB Rflx Negative (Negative)
[2022-09-07] MEDS: oxyCODONE HCL IR 5 MG TAB (IMMEDIATE RELEASE) PO PRN (10:44)
[2022-09-07] MEDS: ENOXAPARIN INJ 40 MG/0.4 ML SYR SQ SCH (10:45)
[2022-09-07] MEDS: ACETAMINOPHEN 500 MG TAB PO SCH ×2 (10:45→17:45)
[2022-09-07] MEDS: CETIRIZINE HCL 10 MG TABLET PO SCH (10:45)
[2022-09-07] MEDS: CHOLECALCIFEROL 1,000 UNITS 25 MCG TAB PO SCH (10:46)
[2022-09-07] MEDS: CYANOCOBALAMIN (B-12) 500 MCG TABLET PO SCH (10:46)
[2022-09-07] MEDS: THIAMINE HCL 100 MG TAB PO SCH (10:46)
[2022-09-07] MEDS: PANTOprazole 40 MG TAB PO SCH (10:46)
[2022-09-07] MEDS: DICLOFENAC SOD 1% GEL 100 GM TUBE EXT SCH ×4 (10:46→22:24)
[2022-09-07] MEDS: DOCUSATE SODIUM/SENNA 50/8.6MG TAB PO SCH (22:24)
[2022-09-08] MEDS: ACETAMINOPHEN 500 MG TAB PO SCH ×3 (00:49→18:11)
[2022-09-08 06:37] LABS: Basophils # (auto) 0.06 K/uL (0-0.2); Basophils % (auto) 0.9 %; Eosinophils # (auto) 0.17 K/uL (0-0.50); Eosinophils % (auto) 2.7 %; Hematocrit (blood only) 29.8 % (34.1-44.9); Hemoglobin 9.9 g/dl (12.0-16.0); Immature Granulocytes # (auto) 0.01 K/uL (0.00-0.02); Immature Granulocytes % (auto) 0.2 %; Lymphocytes # (auto) 2.35 K/uL (1.2-3.4); Lymphocytes % (auto) 36.9 %; Mean Corpuscular Hemoglobin 28.5 pg (25.0-34.0); Mean Corpuscular Hgb Conc 33.2 g/dL (32.0-36.0); Mean Corpuscular Volume 85.9 fL (80.0-100.0); Mean Platelet Volume 9.4 fL (9.4-12.3); Monocytes # (auto) 0.69 K/uL (0.24-0.82); Monocytes % (auto) 10.8 %; Neutrophils # (auto) 3.08 K/uL (1.4-6.5); Neutrophils % (auto) 48.5 %; Platelet Count 273 K/uL (130-400); RDW Coefficient of Variation 13.2 % (11.5-14.5); Red Blood Count 3.47 M/uL (3.93-5.22); White Blood Count 6.36 K/ul (4.8-10.8)
[2022-09-08 07:06] LABS: Albumin Globulin Ratio 0.8 (0.9-2); Albumin Level 2.8 gm/dl (3.4-5.0); BUN Creatinine Ratio 31.5 (10-20); Bilirubin,Total 1.4 mg/dl (0.2-1.0); Calcium 8.6 mg/dl (8.5-10.1); Creatinine Clr Calc Pharmacy 48.9 ml/min; Est GFR (African American) 84.6 ml/min; Globulin 3.3 gm/dl (2.5-4.0); Potassium 3.7 mmol/L (3.5-5.1); Total Protein 6.1 gm/dl (6.0-8.3)
--- NOTE | 2022-09-08 08:08 | Hospitalist Progress Note ---
Date of Service September 08, 2022 Assessment & Plan (1) C. difficile diarrhea: Plan: admitted for hip fracture, no BM in several days, abd NONtender, KUB days prior w/o obstruction (prior hx obstructions s/p resection in past) Had been given abx for skin/soft tissue w/ surgery Had been placed on aggressive bowel regimen, protonix in place of her omeprazole outpatient, given no BM in several days. Had been having formed/pasty stool last evening/some loose stool Episode diarrhea x 3 this morning, foul smelling Asked RN to check cdiff --> both gene/toxin positive Isolation precautions ordered d/c bowel regimen orders WBC wnl/afebrile HD stable currently Start Vanco PO QID -- continue course at d/c Alerted Cm as patient for rehab, to see if any affect on placement given isolation precautions Does not appear overly dehydrated on exam, but may need to order additional IVF pending continued diarrheal looses Monitor labs in AM (2) Fracture, intertrochanteric, right femur: Plan: 87yo female with history of dementia presenting with right intertrochanteric hip fracture following a ground level fall. Pain is well controlled at present. NV intact. Age-related osteoporotic intertrochanteric femur fracture POD #6 s/p Right proximal femur intertrochanteric fracture closed reduction and internal fixation with trochanteric entry cephalomedullary fixation nail (Right) - Santi Mclain MD on 09/02. Will need repeat xrays at 6 weeks EBL 100cc Bowel regimen -- no BM in 4+ days, aggressive BM regimen ordered --> see above, now with Cdiff, tx as outlined Pain control -- scheduled tylenol given not given days past, oxycodone for breakthrough (may have been causing constipation despite cdiff?) PT/OT consulted -- SNF planned when bed available NSS 500cc provided yesterday for dehydration/concentrated link/hyponatremia --> resolved on repeat BMP. Link with less concentrated urine draining, yellow in color DVT proph -- Lovenox SQ while inpatient but planning ASA 81mg BID at d/c for compliance per ortho recs (3) Dementia: Plan: Patient was previously on medication for dementia. Presently is not taking anything. Prior on risperdal at home per PCP notes, however was d/c'd as stated made her more agitated suspect hospital delirium on top of patient with dementia Prior B12 level in 200s in summer w/ PC--> Repeat level B12 low normal at 235 and given IM x 2, transitioned to PO and continue at d/c B1 pending, started empiric thiamine -- consider continue at d/c TSH wnl Frequent orientation, Avoidance of potentially delirium-inducing agents - benzodiazepines Zyprexa overnight for agitation/confusion 09/02-09/03 w/ b/l soft mitts, since discontinued. Seroquel low dose 12.5mg given 09/04 AM, 09/06 but nothing further Pleasant confusion, cooperative w/ care at present. Alert to person but not time/event (4) Closed right hip fracture: Plan: as above, PT/OT consulted (5) Hyponatremia: Plan: Na 133-135, TSH wnl. Na 128 on 09/03, did get a dose of lasix 20mg PO x 1 Urine na 33, urine osm 469 initially Suspect combination of inadequate pain control/increased ADH production/tramadol use (since d/'d), as well as subsequent volume overload from IVF given w/ surgery Repeat urine Na increased to >100, urine osm further increased Given 500cc NSS yesterday, did appear slightly dehydrated Na 136 on AM labs and will continue to monitor (6) Hypoxia: Plan: post operatively had remained on supplemental o2 without ability to titrate off ECHO obtained --+Murmur on exam, MODERATE AORTIC STENOSIS, likely volume overload on CXR from IVF w/ surgery and lasix provided and has remained stable on room air O2 ordered for overnight given hypoxia on overnight sleep study once off O2 -- has not been using RSV/flu/covid negative 09/04 Supplemental O2 as needed to maintain sats, given 500cc on 09/07 for dehydra tion, cautious use w/ aortic stenosis Remains stable on room air for days (7) GERD (gastroesophageal reflux disease): Plan: Chronic continue pantoprazole 40mg PO daily -- recently placed on lansoprazole 30mg for a "burning in her throat" that she had complained about at night. Also on levocetirizine for allergic rhinitis symptoms Continue protonix/zyrtec while inpatient No increased reflux reported (8) B12 deficiency: Plan: checked due to dementia, prior lows in system low normal 235-- IM replacement while inpatient x 2 doses, switched to PO supplementation as above and would continue at discharge (9) Vitamin D deficiency: Plan: checked due to fracture, low at 22 replacement ordered -- would continue at discharge as well (10) Diabetes mellitus, type 2: Plan: A1c 7.1 most recently (prior 6.9 in 2019) NOT on any medications at home, per PCP notes, diet controlled Glucose on AM labs 125, not given any steroids w/ surgery BSG AC/HS, ISS added BSGs acceptable -- f/u PCP at discharge Of note, error on BSG 09/05 afternoon to 350s, repeat 105 , 122 and suspect not cleaned the meter and has remained stable as all values have been stable since that time without need for increased insulin coverage Would rec meds at SNF ISS/follow up with PCP after SNF as A1c 7.1 and benefit from better control, especially given prior reports of family bringing in lots of candy but were instructed to take this home. (11) Aortic stenosis: Plan: on exam, echo obtained given fall however denied symptoms of syncope/angina/dyspnea however has dementia at baseline volume overload suspected post-op from IVF, lasix 20mg PO provided 09/03, repeated 09/04 Does not appear to be volume overloaded, actually appeared dry on examination yesterday and given 500cc NSS, no evidence for volume overload as likely having dehydration from cdiff/diarrheal losses as abvoe -f/u with ECHO in 1-2 years as outpt (12) Elevated LFTs: Plan: Prior elevation TB 1.5, unchanged on repeat ALP elevated, ?bone given fracture, chroinc elevations. Has had cholecystectomy in the past ?medication related/dehydrated/volume contraction? Monitor on repeat w/ IVF -- of note, Seroquel can also cause elevated LFTs (not checked after given on 09/04 however Tb initially noted to be elevated after given on 09/04) Cdiff as above, also could have been from seroquel, reported effects w/ LFT elevation Monitor Plan continued inpatient stay start vanco PO for +cdiff (of note, home couple days ago "feeling ill" -- ?also w/ cidff possibly vs GI bug PT/OT consulted, SNF planned and CM following May need additional IVF pending GI losses, monitor volume status/hydration/labs in AM Admission and Anticipated Discharge Date Admission Date: September 01, 2022 Subjective per RN, 3BM this morning, foul smelling, checking for cdiff. discussed no BM in multiple days, aggressive bowel regimen, will check cdiff though and hold off further stool softeners. Na improved and stable on labs. Link w/ yellow urine. Pain reported controlled, and now continues on scheduled tylenol, could contribute to elevated LFTs. Chronic elevation in ALP, also could be from bone given recent fracture. Patient reports not having any pain at the moment, no issues eating/drinking. Denies any fever/chills, chest pain or trouble breathing. NO ABDOMINAL PAin, abdomen is SOFT AND NONTENDER on exam. Regarding mental status/dementia -- mood stable, cooperative with care. Thought she was in [place], reoriented to [place], didn't know she broke her hip. Hx dementia, pleasant and cooperative, at baseline and improved/mental status stable. Awaiting rehab placement -- CM following -- [facility] [place] to review referral, might have bed this week. Review of Systems Review of Systems: All systems reviewed & are unremarkable except as noted in HPI & below Physical Exam Physical Exam: General: WD elderly female resting comfortable upon entry, NAD, pleasant, [place] she[place], easily reoriented, did not remember breaking her hip HEENT: head normocephalic, mm improved from day prior trachea midline Resp: diminished in the bases, bibasilar crackles improved, on room air 97% CV: RRR, +3/6 systolic murmur, calves nontender, pulses palpable, cap refill wnl GI: +BS, SOFT, NONTENDER, not distended (multiple BM overnight/this morning), no guarding/rigidity, no RUQ tenderness : link draining yellow urine MSK/Neuro: follows commands as able, no slurred speech/facial droop dressing to RIGHT hip c/d/i, ice pack in place, tender to palpation along dressing (less tender), compartments supple, NVI no facial droop/focal deficit Psych: alert to person, not place (thought in [place]), not time, dementia at baseline, pleasant/cooperative Results & Data Results & Data ([facility]) Vital Signs (Past 12 Hours) Vital Signs Temp Pulse Pulse Resp BP Pulse Ox O2 Del Method 09/08/22 07:44 36.3 C L 72 18 106/60 96 Room Air 09/07/22 21:30 Room Air 09/07/22 22:05 36.8 C 88 18 97/63 L 93 Room Air Laboratory Results 09/08/22 09/08/22 09/08/22 Range/Units Unknown 11:55 07:51 WBC (4.8-10.8) K/ul RBC (3.93-5.22) M/uL Hgb (12.0-16.0) g/dl Hct (34.1-44.9) % MCV (80.0-100.0) fL MCH (25.0-34.0) pg MCHC (32.0-36.0) g/dL RDW Std Deviation (36.4-46.3) fL RDW Coeff of Bhaskar (11.5-14.5) % Plt Count (130-400) K/uL MPV (9.4-12.3) fL Immature Gran % (Auto) % Neut % (Auto) % Lymph % (Auto) % Milam % (Auto) % Eos % (Auto) % Baso % (Auto) % Neut # (Auto) (1.4-6.5) K/uL Lymph # (Auto) (1.2-3.4) K/uL Milam # (Auto) (0.24-0.82) K/uL Eos # (Auto) (0-0.50) K/uL Baso # (Auto) (0-0.2) K/uL Immature Gran # (Auto) (0.00-0.02) K/uL Sodium (136-145) mmol/L Potassium (3.5-5.1) mmol/L Chloride (98-107) mmol/L Carbon Dioxide (21-32) mmol/L Anion Gap (3-11) BUN (6-23) mg/dl Creatinine (0.6-1.2) mg/dl Est Cr Clr Drug Dosing ml/min Est GFR ( Amer) ml/min Est GFR (Non-Af Amer) ml/min BUN/Creatinine Ratio (10-20) Glucose (70-99(Fasting)) mg/dl POC Glucose 115 H 109 H (70-99) mg/dl Calcium (8.5-10.1) mg/dl Total Bilirubin (0.2-1.0) mg/dl AST (13-39) U/L ALT (7-52) U/L Alkaline Phosphatase (34-104) U/L Total Protein (6.0-8.3) gm/dl Albumin (3.4-5.0) gm/dl Globulin (2.5-4.0) gm/dl Albumin/Globulin Ratio (0.9-2) Vitamin B1 (8-30) nmol/L Urine Osmolality (500-800) mOsm/kg Stl C. diff Tox B Gene Positive Cdiff Gene H (Neg) Stl C.difficile Tox A&B Positive Cdiff Toxin A* (Negative) 09/08/22 09/08/22 09/07/22 Range/Units 06:29 06:29 20:34 WBC 6.36 (4.8-10.8) K/ul RBC 3.47 L (3.93-5.22) M/uL Hgb 9.9 L (12.0-16.0) g/dl Hct 29.8 L (34.1-44.9) % MCV 85.9 (80.0-100.0) fL MCH 28.5 (25.0-34.0) pg MCHC 33.2 (32.0-36.0) g/dL RDW Std Deviation 41.0 (36.4-46.3) fL RDW Coeff of Bhaskar 13.2 (11.5-14.5) % Plt Count 273 (130-400) K/uL MPV 9.4 (9.4-12.3) fL Immature Gran % (Auto) 0.2 % Neut % (Auto) 48.5 % Lymph % (Auto) 36.9 % Milam % (Auto) 10.8 % Eos % (Auto) 2.7 % Baso % (Auto) 0.9 % Neut # (Auto) 3.08 (1.4-6.5) K/uL Lymph # (Auto) 2.35 (1.2-3.4) K/uL Milam # (Auto) 0.69 (0.24-0.82) K/uL Eos # (Auto) 0.17 (0-0.50) K/uL Baso # (Auto) 0.06 (0-0.2) K/uL Immature Gran # (Auto) 0.01 (0.00-0.02) K/uL Sodium 136 (136-145) mmol/L Potassium 3.7 (3.5-5.1) mmol/L Chloride 104 (98-107) mmol/L Carbon Dioxide 27 (21-32) mmol/L Anion Gap 5 (3-11) BUN 23 (6-23) mg/dl Creatinine 0.73 (0.6-1.2) mg/dl Est Cr Clr Drug Dosing 48.9 ml/min Est GFR ( Amer) 84.6 ml/min Est GFR (Non-Af Amer) 73.0 ml/min BUN/Creatinine Ratio 31.5 H (10-20) Glucose 105 H (70-99(Fasting)) mg/dl POC Glucose 130 H (70-99) mg/dl Calcium 8.6 (8.5-10.1) mg/dl Total Bilirubin 1.4 H (0.2-1.0) mg/dl AST 24 (13-39) U/L ALT 12 (7-52) U/L Alkaline Phosphatase 140 H (34-104) U/L Total Protein 6.1 (6.0-8.3) gm/dl Albumin 2.8 L (3.4-5.0) gm/dl Globulin 3.3 (2.5-4.0) gm/dl Albumin/Globulin Ratio 0.8 L (0.9-2) Vitamin B1 (8-30) nmol/L Urine Osmolality (500-800) mOsm/kg Stl C. diff Tox B Gene (Neg) Stl C.difficile Tox A&B (Negative) 09/07/22 09/07/22 09/03/22 Range/Units 17:01 10:55 08:19 WBC (4.8-10.8) K/ul RBC (3.93-5.22) M/uL Hgb (12.0-16.0) g/dl Hct (34.1-44.9) % MCV (80.0-100.0) fL MCH (25.0-34.0) pg MCHC (32.0-36.0) g/dL RDW Std Deviation (36.4-46.3) fL RDW Coeff of Bhaskar (11.5-14.5) % Plt Count (130-400) K/uL MPV (9.4-12.3) fL Immature Gran % (Auto) % Neut % (Auto) % Lymph % (Auto) % Milam % (Auto) % Eos % (Auto) % Baso % (Auto) % Neut # (Auto) (1.4-6.5) K/uL Lymph # (Auto) (1.2-3.4) K/uL Milam # (Auto) (0.24-0.82) K/uL Eos # (Auto) (0-0.50) K/uL Baso # (Auto) (0-0.2) K/uL Immature Gran # (Auto) (0.00-0.02) K/uL Sodium (136-145) mmol/L Potassium (3.5-5.1) mmol/L Chloride (98-107) mmol/L Carbon Dioxide (21-32) mmol/L Anion Gap (3-11) BUN (6-23) mg/dl Creatinine (0.6-1.2) mg/dl Est Cr Clr Drug Dosing ml/min Est GFR ( Amer) ml/min Est GFR (Non-Af Amer) ml/min BUN/Creatinine Ratio (10-20) Glucose (70-99(Fasting)) mg/dl POC Glucose 137 H (70-99) mg/dl Calcium (8.5-10.1) mg/dl Total Bilirubin (0.2-1.0) mg/dl AST (13-39) U/L ALT (7-52) U/L Alkaline Phosphatase (34-104) U/L Total Protein (6.0-8.3) gm/dl Albumin (3.4-5.0) gm/dl Globulin (2.5-4.0) gm/dl Albumin/Globulin Ratio (0.9-2) Vitamin B1 8 (8-30) nmol/L Urine Osmolality 789 (500-800) mOsm/kg Stl C. diff Tox B Gene (Neg) Stl C.difficile Tox A&B (Negative) PG Care Time/CCT Total # of Minutes Spent Total Time Spent with Patient: Total time spent is greater than 50% in coordination of care (as documented) at patient's floor/unit and/or counseling patient: Coding Level of Care Code 49739 Subseq Hosp Care Lvl 3 Diagnoses C. difficile diarrhea A04.72 Fracture, intertrochanteric, right femur S72.141A Dementia F03.B11 Dementia behavioral or psychological symptom: with agitation Dementia severity: moderate Dementia type: unspecified type Closed right hip fracture S72.001A Hyponatremia E87.1 Hypoxia R09.02 GERD (gastroesophageal reflux disease) K21.9 B12 deficiency E53.8 Vitamin D deficiency E55.9 Diabetes mellitus, type 2 E11.9 Aortic stenosis I35.0 Elevated LFTs R79.89 (1) Dementia Dementia behavioral or psychological symptom: with agitation Dementia severity: moderate Dementia type: unspecified type Qualified Code(s): F03.B11 - Unspecified dementia, moderate, with agitation
[2022-09-08] MEDS: INSULIN ASPART PER UNIT SC SCH ×4 (08:53→21:24)
[2022-09-08] MEDS: PANTOprazole 40 MG TAB PO SCH (08:54)
[2022-09-08] MEDS: CETIRIZINE HCL 10 MG TABLET PO SCH (08:54)
[2022-09-08] MEDS: CYANOCOBALAMIN (B-12) 500 MCG TABLET PO SCH (08:54)
[2022-09-08] MEDS: CHOLECALCIFEROL 1,000 UNITS 25 MCG TAB PO SCH (08:54)
[2022-09-08] MEDS: THIAMINE HCL 100 MG TAB PO SCH (08:54)
[2022-09-08] MEDS: DICLOFENAC SOD 1% GEL 100 GM TUBE EXT SCH ×4 (08:55→21:24)
[2022-09-08] MEDS: ENOXAPARIN INJ 40 MG/0.4 ML SYR SQ SCH (08:55)
[2022-09-08] MEDS: POLYETHYLENE (MIRALAX) 17 GM PACK PO SCH (08:58)
[2022-09-08 11:59] LABS: Cdiff Toxin B Gene (2yr or >) Positive Cdiff Gene (Neg)
[2022-09-08 12:01] LABS: Cdiff Antigen Positive; Cdiff Toxin A+B Positive Cdiff Toxin (Negative)
[2022-09-08] MEDS: RASPBERRY SYRUP 5 ML UDP PO SCH ×2 (18:13→23:09)
[2022-09-08] MEDS: VANCOMYCIN HCL 125 MG/2.5ML SOLN PO SCH ×2 (18:13→23:10)
[2022-09-08] MEDS: ACETAMINOPHEN 325 MG TAB PO PRN (23:10)
[2022-09-09] MEDS: ACETAMINOPHEN 500 MG TAB PO SCH ×3 (00:03→18:03)
[2022-09-09] MEDS: oxyCODONE HCL IR 5 MG TAB (IMMEDIATE RELEASE) PO PRN (04:16)
[2022-09-09] MEDS: RASPBERRY SYRUP 5 ML UDP PO SCH ×3 (05:19→19:20)
[2022-09-09] MEDS: VANCOMYCIN HCL 125 MG/2.5ML SOLN PO SCH ×3 (05:19→19:20)
[2022-09-09 06:01] LABS: Basophils # (auto) 0.06 K/uL (0-0.2); Basophils % (auto) 0.9 %; Eosinophils # (auto) 0.16 K/uL (0-0.50); Eosinophils % (auto) 2.4 %; Hematocrit (blood only) 35.2 % (34.1-44.9); Hemoglobin 11.5 g/dl (12.0-16.0); Immature Granulocytes # (auto) 0.02 K/uL (0.00-0.02); Immature Granulocytes % (auto) 0.3 %; Lymphocytes # (auto) 1.68 K/uL (1.2-3.4); Lymphocytes % (auto) 24.9 %; Mean Corpuscular Hemoglobin 28.5 pg (25.0-34.0); Mean Corpuscular Hgb Conc 32.7 g/dL (32.0-36.0); Mean Corpuscular Volume 87.1 fL (80.0-100.0); Mean Platelet Volume 9.6 fL (9.4-12.3); Monocytes # (auto) 0.58 K/uL (0.24-0.82); Monocytes % (auto) 8.6 %; Neutrophils # (auto) 4.25 K/uL (1.4-6.5); Neutrophils % (auto) 62.9 %; Platelet Count 341 K/uL (130-400); RDW Coefficient of Variation 13.1 % (11.5-14.5); RDW Standard Deviation 41.9 fL (36.4-46.3); Red Blood Count 4.04 M/uL (3.93-5.22); White Blood Count 6.75 K/ul (4.8-10.8)
[2022-09-09 06:20] LABS: Albumin Level 3.2 gm/dl (3.4-5.0); BUN Creatinine Ratio 21.1 (10-20); Bilirubin Direct 0.2 mg/dl (0-0.2); Creatinine Clr Calc Pharmacy 50.3 ml/min; Est GFR (African American) 87.5 ml/min; Est GFR (Non-African American) 75.5 ml/min; Magnesium 2.1 mg/dl (1.7-2.4); Potassium 3.5 mmol/L (3.5-5.1); Total Protein 6.9 gm/dl (6.0-8.3)
[2022-09-09] MEDS: CHOLECALCIFEROL 1,000 UNITS 25 MCG TAB PO SCH (08:37)
[2022-09-09] MEDS: PANTOprazole 40 MG TAB PO SCH (08:37)
[2022-09-09] MEDS: THIAMINE HCL 100 MG TAB PO SCH (08:37)
[2022-09-09] MEDS: CYANOCOBALAMIN (B-12) 500 MCG TABLET PO SCH (08:37)
[2022-09-09] MEDS: CETIRIZINE HCL 10 MG TABLET PO SCH (08:40)
[2022-09-09] MEDS: DICLOFENAC SOD 1% GEL 100 GM TUBE EXT SCH ×4 (08:41→21:56)
[2022-09-09] MEDS: ENOXAPARIN INJ 40 MG/0.4 ML SYR SQ SCH (08:41)
[2022-09-09] MEDS: INSULIN ASPART PER UNIT SC SCH ×4 (08:48→21:00)
--- NOTE | 2022-09-09 14:25 | Hospitalist Progress Note ---
Date of Service September 09, 2022 Assessment & Plan (1) C. difficile diarrhea: Plan: - Episode diarrhea x 3 this morning, foul smelling, positive for c. diff - Isolation precautions ordered - Started Vanco 125mg PO QID x 10 days on 09/08 - Alerted Cm as patient for rehab, to see if any affect on placement given isolation precautions (2) Fracture, intertrochanteric, right femur: Plan: - POD #7 s/p Right proximal femur intertrochanteric fracture closed reduction and internal fixation with trochanteric entry cephalomedullary fixation nail (Right) - Santi Mclain MD on 09/02. - Will need repeat xrays at 6 weeks - Pain control -- scheduled tylenol given not given days past, oxycodone for breakthrough (may have been causing constipation despite cdiff?) - PT/OT consulted -- SNF planned when bed available - DVT ppx -- Lovenox SQ while inpatient but planning ASA 81mg BID at d/c for compliance per ortho recs (3) Dementia: Plan: Patient was previously on medication for dementia. Presently is not taking anything. - Prior on risperdal at home per PCP notes, however was d/c'd as stated made her more agitated - suspect hospital delirium on top of patient with dementia - Prior B12 level in 200s in summer w/ PC--> Repeat level B12 low normal at 235 and given IM x 2, transitioned to PO and continue at d/c - B1 pending, started empiric thiamine -- consider continue at d/c - TSH wnl - Frequent orientation, Avoidance of potentially delirium-inducing agents - benzodiazepines Zyprexa overnight for agitation/confusion 09/02-09/03 w/ b/l soft mitts, since discontinued. Seroquel low dose 12.5mg given 09/04 AM, 09/06 but nothing further - Pleasant confusion, cooperative w/ care at present. Alert to person but not time/event (4) Closed right hip fracture: Plan: as above, PT/OT consulted --> snf recommended, referrals sent (5) Hyponatremia: Plan: Na 133-135, TSH wnl. - Na 128 on 09/03, did get a dose of lasix 20mg PO x 1 - Urine na 33, urine osm 469 initially - Suspect combination of inadequate pain control/increased ADH production/tramadol use (since d/c'd), as well as subsequent volume overload from IVF given w/ surgery - Repeat urine Na increased to >100, urine osm further increased - Resolved, Na 136 this AM (6) Hypoxia: Plan: - post operatively had remained on supplemental o2 without ability to titrate off - ECHO obtained --+Murmur on exam, MODERATE , likely volume overload on CXR from IVF w/ surgery and lasix provided and has remained stable on room air - O2 ordered for overnight given hypoxia on overnight sleep study once off O2 -- has not been using - RSV/flu/covid negative 09/04 - Resolved-- remains stable on room air for days (7) GERD (gastroesophageal reflux disease): Plan: Chronic - continue pantoprazole 40mg PO daily -- recently placed on lansoprazole 30mg for a "burning in her throat" that she had complained about at night. Also on levocetirizine for allergic rhinitis symptoms - Continue protonix/zyrtec while inpatient - No increased reflux reported (8) B12 deficiency: Plan: - checked due to dementia, prior lows in system - low normal 235-- IM replacement while inpatient x 2 doses, switched to PO supplementation as above and would continue at discharge (9) Vitamin D deficiency: Plan: - hecked due to fracture, low at 22 - replacement ordered -- would continue at discharge as well (10) Diabetes mellitus, type 2: Plan: - A1c 7.1 most recently (prior 6.9 in 2019) - NOT on any medications at home, per PCP notes, diet controlled - Glucose on AM labs 125, not given any steroids w/ surgery - BSG AC/HS, ISS added - BSGs acceptable -- f/u PCP at discharge Of note, error on BSG 09/05 afternoon to 350s, repeat 105 , 122 and suspect not cleaned the meter and has remained stable as all values have been stable since that time without need for increased insulin coverage - Would rec meds at [facility] ISS/follow up with PCP after SNF as A1c 7.1 and benefit from better control, especially given prior reports of family bringing in lots of candy but were instructed to take this home. (11) Aortic stenosis: Plan: - on exam, echo obtained given fall however denied symptoms of syncope/angina/dyspnea however has dementia at baseline - volume overload suspected post-op from IVF, lasix 20mg PO provided 09/03, repeated 09/04 - Does not appear to be volume overloaded, actually appeared dry on examination yesterday and given 500cc NSS, no evidence for volume overload as likely having dehydration from cdiff/diarrheal losses as abvoe - f/u with ECHO in 1-2 years as outpt (12) Elevated LFTs: Plan: Prior elevation TB 1.5, unchanged on repeat - ALP elevated, ?bone given fracture, chronic elevations. Has had cholecystectomy in the past - ?medication related/dehydrated/volume contraction? - of note, Seroquel can also cause elevated LFTs (not checked after given on 09/04 however Tb initially noted to be elevated after given on 09/04) - Cdiff as above, also could have been from seroquel, reported effects w/ LFT elevation - stable Plan continued inpatient stay start vanco PO for +cdiff PT/OT consulted, SNF planned and CM following Plan d/w Dr. Black Admission and Anticipated Discharge Date Admission Date: September 01, 2022 Subjective Patient seen on daily rounds, pleasantly confused, working with therapy at the time of my visit. No concerns reported by nursing staff. Review of Systems Review of Systems: Accurate ROS not obtainable due to dementia Physical Exam Physical Exam: GENERAL: 87 yo Well-developed, well-nourished elderly WF. NAD. LUNGS: Clear to auscultation bilaterally. No W/R/R. CARDIOVASCULAR: Regular rate and rhythm. 2-3/6 ADAN noted, no g/r ABDOMEN: Soft, non-tender and non-distended. BS normoactive x 4 quad. EXTREMITIES: No edema. Non-tender. Peripheral pulses +2/4. NEUROLOGIC: Awake, alert, oriented x1. PSYCHIATRIC: Cooperative. Appropriate mood and affect. SKIN: warm, dry, intact. Skin breakdown noted on buttocks. Results & Data Results & Data ([facility]) Vital Signs (Past 12 Hours) Vital Signs Temp Pulse Resp BP Pulse Ox O2 Del Method 09/09/22 06:35 36.5 C 87 16 112/64 98 Room Air Laboratory Results 09/09/22 05:44 09/09/22 05:44 PG Care Time/CCT Total # of Minutes Spent Total Time Spent with Patient: Total time spent is greater than 50% in coordination of care (as documented) at patient's floor/unit and/or counseling patient: Coding Level of Care Code 65564 Subseq Hosp Care Lvl 2 Diagnoses C. difficile diarrhea A04.72 Fracture, intertrochanteric, right femur S72.141A Dementia F03.B11 Dementia behavioral or psychological symptom: with agitation Dementia severity: moderate Dementia type: unspecified type Closed right hip fracture S72.001A Hyponatremia E87.1 Hypoxia R09.02 GERD (gastroesophageal reflux disease) K21.9 B12 deficiency E53.8 Vitamin D deficiency E55.9 Diabetes mellitus, type 2 E11.9 Aortic stenosis I35.0 Elevated LFTs R79.89 (1) Dementia Dementia behavioral or psychological symptom: with agitation Dementia severity: moderate Dementia type: unspecified type Qualified Code(s): F03.B11 - Unspecified dementia, moderate, with agitation
[2022-09-10] MEDS: RASPBERRY SYRUP 5 ML UDP PO SCH ×4 (06:05→17:37)
[2022-09-10] MEDS: VANCOMYCIN HCL 125 MG/2.5ML SOLN PO SCH ×4 (06:05→17:39)
[2022-09-10] MEDS: ACETAMINOPHEN 500 MG TAB PO SCH ×3 (08:47→16:40)
[2022-09-10] MEDS: CHOLECALCIFEROL 1,000 UNITS 25 MCG TAB PO SCH (08:48)
[2022-09-10] MEDS: CETIRIZINE HCL 10 MG TABLET PO SCH (08:48)
[2022-09-10] MEDS: THIAMINE HCL 100 MG TAB PO SCH (08:48)
[2022-09-10] MEDS: PANTOprazole 40 MG TAB PO SCH (08:48)
[2022-09-10] MEDS: CYANOCOBALAMIN (B-12) 500 MCG TABLET PO SCH (08:48)
[2022-09-10] MEDS: DICLOFENAC SOD 1% GEL 100 GM TUBE EXT SCH ×4 (08:49→21:51)
[2022-09-10] MEDS: ENOXAPARIN INJ 40 MG/0.4 ML SYR SQ SCH (08:52)
[2022-09-10] MEDS: INSULIN ASPART PER UNIT SC SCH ×4 (09:31→21:48)
--- NOTE | 2022-09-10 13:53 | Hospitalist Progress Note ---
Date of Service September 10, 2022 Assessment & Plan (1) C. difficile diarrhea: Plan: - Episode diarrhea x 3 this morning, foul smelling, positive for c. diff - Isolation precautions ordered - Started Vanco 125mg PO QID x 10 days on 09/08 - Alerted Cm as patient for rehab, to see if any affect on placement given isolation precautions (2) Fracture, intertrochanteric, right femur: Plan: - POD #8 s/p Right proximal femur intertrochanteric fracture closed reduction and internal fixation with trochanteric entry cephalomedullary fixation nail (Right) - Santi Mclain MD on 09/02. - Will need repeat xrays at 6 weeks - Pain control -- scheduled tylenol given not given days past, oxycodone for breakthrough (may have been causing constipation despite cdiff?) - PT/OT consulted -- SNF planned when bed available - DVT ppx -- Lovenox SQ while inpatient but planning ASA 81mg BID at d/c for compliance per ortho recs (3) Dementia: Plan: Patient was previously on medication for dementia. Presently is not taking anything. - Prior on risperdal at home per PCP notes, however was d/c'd as stated made her more agitated - suspect hospital delirium on top of patient with dementia - Prior B12 level in 200s in summer w/ PC--> Repeat level B12 low normal at 235 and given IM x 2, transitioned to PO and continue at d/c - B1 pending, started empiric thiamine -- consider continue at d/c - TSH wnl - Frequent orientation, Avoidance of potentially delirium-inducing agents - benzodiazepines Zyprexa overnight for agitation/confusion 09/02-09/03 w/ b/l soft mitts, since discontinued. Seroquel low dose 12.5mg given 09/04 AM, 09/06 but nothing further - Pleasant confusion, cooperative w/ care at present. Alert to person but not time/event (4) Closed right hip fracture: Plan: as above, PT/OT consulted --> snf recommended, referrals sent (5) Hyponatremia: Plan: Na 133-135, TSH wnl. - Na 128 on 09/03, did get a dose of lasix 20mg PO x 1 - Urine na 33, urine osm 469 initially - Suspect combination of inadequate pain control/increased ADH production/tramadol use (since d/c'd), as well as subsequent volume overload from IVF given w/ surgery - Repeat urine Na increased to >100, urine osm further increased - Resolved, Na 136 this AM (6) Hypoxia: Plan: - post operatively had remained on supplemental o2 without ability to titrate off - ECHO obtained --+Murmur on exam, MODERATE , likely volume overload on CXR from IVF w/ surgery and lasix provided and has remained stable on room air - O2 ordered for overnight given hypoxia on overnight sleep study once off O2 -- has not been using - RSV/flu/covid negative 09/04 - Resolved-- remains stable on room air for days (7) GERD (gastroesophageal reflux disease): Plan: Chronic - continue pantoprazole 40mg PO daily -- recently placed on lansoprazole 30mg for a "burning in her throat" that she had complained about at night. Also on levocetirizine for allergic rhinitis symptoms - Continue protonix/zyrtec while inpatient - No increased reflux reported (8) B12 deficiency: Plan: - checked due to dementia, prior lows in system - low normal 235-- IM replacement while inpatient x 2 doses, switched to PO supplementation as above and would continue at discharge (9) Vitamin D deficiency: Plan: - hecked due to fracture, low at 22 - replacement ordered -- would continue at discharge as well (10) Diabetes mellitus, type 2: Plan: - A1c 7.1 most recently (prior 6.9 in 2019) - NOT on any medications at home, per PCP notes, diet controlled - Glucose on AM labs 125, not given any steroids w/ surgery - BSG AC/HS, ISS added - BSGs acceptable -- f/u PCP at discharge Of note, error on BSG 09/05 afternoon to 350s, repeat 105 , 122 and suspect not cleaned the meter and has remained stable as all values have been stable since that time without need for increased insulin coverage - Would rec meds at [facility] ISS/follow up with PCP after SNF as A1c 7.1 and benefit from better control, especially given prior reports of family bringing in lots of candy but were instructed to take this home. (11) Aortic stenosis: Plan: - on exam, echo obtained given fall however denied symptoms of syncope/angina/dyspnea however has dementia at baseline - volume overload suspected post-op from IVF, lasix 20mg PO provided 09/03, repeated 09/04 - Does not appear to be volume overloaded, actually appeared dry on examination yesterday and given 500cc NSS, no evidence for volume overload as likely having dehydration from cdiff/diarrheal losses as abvoe - f/u with ECHO in 1-2 years as outpt (12) Elevated LFTs: Plan: Prior elevation TB 1.5, unchanged on repeat - ALP elevated, ?bone given fracture, chronic elevations. Has had cholecystectomy in the past - ?medication related/dehydrated/volume contraction? - of note, Seroquel can also cause elevated LFTs (not checked after given on 09/04 however Tb initially noted to be elevated after given on 09/04) - Cdiff as above, also could have been from seroquel, reported effects w/ LFT elevation - stable Plan continued inpatient stay start vanco PO for +cdiff PT/OT consulted, SNF planned and CM following Plan d/w Dr. Black Admission and Anticipated Discharge Date Admission Date: September 01, 2022 Subjective Patient seen on daily rounds, pleasantly confused, no complaints. No concerns reported by nursing staff. Review of Systems Review of Systems: Accurate ROS not obtainable due to dementia Physical Exam Physical Exam: GENERAL: 87 yo Well-developed, well-nourished elderly WF. NAD. LUNGS: Clear to auscultation bilaterally. No W/R/R. CARDIOVASCULAR: Regular rate and rhythm. Blowing 2-3/6 ADAN noted, no g/r ABDOMEN: Soft, non-tender and non-distended. BS normoactive x 4 quad. EXTREMITIES: No edema. Non-tender. Peripheral pulses +2/4. NEUROLOGIC: Awake, alert, oriented x1. PSYCHIATRIC: Cooperative. Appropriate mood and affect. SKIN: warm, dry, intact. Skin breakdown noted on buttocks. Results & Data Results & Data ([facility]) Vital Signs (Past 12 Hours) Vital Signs Temp Pulse Resp BP Pulse Ox O2 Del Method 09/10/22 10:22 Room Air 09/10/22 07:57 36.4 C L 68 18 122/67 96 Room Air PG Care Time/CCT Total # of Minutes Spent Total Time Spent with Patient: Total time spent is greater than 50% in coordination of care (as documented) at patient's floor/unit and/or counseling patient: Coding Level of Care Code 31569 Subseq Hosp Care Lvl 1 Diagnoses C. difficile diarrhea A04.72 Fracture, intertrochanteric, right femur S72.141A Dementia F03.B11 Dementia behavioral or psychological symptom: with agitation Dementia severity: moderate Dementia type: unspecified type Closed right hip fracture S72.001A Hyponatremia E87.1 Hypoxia R09.02 GERD (gastroesophageal reflux disease) K21.9 B12 deficiency E53.8 Vitamin D deficiency E55.9 Diabetes mellitus, type 2 E11.9 Aortic stenosis I35.0 Elevated LFTs R79.89 (1) Dementia Dementia behavioral or psychological symptom: with agitation Dementia severity: moderate Dementia type: unspecified type Qualified Code(s): F03.B11 - Unspecified dementia, moderate, with agitation
[2022-09-11] MEDS: RASPBERRY SYRUP 5 ML UDP PO SCH ×5 (00:38→23:55)
[2022-09-11] MEDS: VANCOMYCIN HCL 125 MG/2.5ML SOLN PO SCH ×5 (00:38→23:55)
[2022-09-11] MEDS: ACETAMINOPHEN 500 MG TAB PO SCH ×4 (00:38→23:55)
[2022-09-11] MEDS: INSULIN ASPART PER UNIT SC SCH ×3 (09:05→18:05)
[2022-09-11] MEDS: DICLOFENAC SOD 1% GEL 100 GM TUBE EXT SCH ×4 (09:07→20:55)
[2022-09-11] MEDS: CYANOCOBALAMIN (B-12) 500 MCG TABLET PO SCH (09:07)
[2022-09-11] MEDS: THIAMINE HCL 100 MG TAB PO SCH (09:07)
[2022-09-11] MEDS: CETIRIZINE HCL 10 MG TABLET PO SCH (09:07)
[2022-09-11] MEDS: CHOLECALCIFEROL 1,000 UNITS 25 MCG TAB PO SCH (09:07)
[2022-09-11] MEDS: PANTOprazole 40 MG TAB PO SCH (09:07)
[2022-09-11] MEDS: ENOXAPARIN INJ 40 MG/0.4 ML SYR SQ SCH (09:08)
--- NOTE | 2022-09-11 18:03 | Hospitalist Progress Note ---
Date of Service September 11, 2022 Assessment & Plan (1) Fracture, intertrochanteric, right femur: Plan: - POD #9 s/p Right proximal femur intertrochanteric fracture closed reduction and internal fixation with trochanteric entry cephalomedullary fixation nail (Right) - Santi Mclain MD on 09/02. - Will need repeat xrays at 6 weeks - Pain control -- scheduled tylenol given not given days past, oxycodone for breakthrough (may have been causing constipation despite cdiff?) - PT/OT consulted -- SNF planned when bed available - DVT ppx -- Lovenox SQ while inpatient but planning ASA 81mg BID at d/c for compliance per ortho recs Remove link catheter (2) C. difficile diarrhea: Plan: - Episode diarrhea x 3 after multiple days as inpatient - Isolation precautions ordered - Started Vanco 125mg PO QID x 10 days on 09/08 (3) Dementia: Plan: Patient was previously on medication for dementia. Presently is not taking anything. - Prior on risperdal at home per PCP notes, however was d/c'd as stated made her more agitated - suspect hospital delirium on top of patient with dementia - Prior B12 level in 200s in summer w/ PC--> Repeat level B12 low normal at 235 and given IM x 2, transitioned to PO and continue at d/c - B1 pending, started empiric thiamine -- consider continue at d/c - TSH wnl - Frequent orientation, Avoidance of potentially delirium-inducing agents - benzodiazepines Zyprexa overnight for agitation/confusion 09/02-09/03 w/ b/l soft mitts, since discontinued. Seroquel low dose 12.5mg given 09/04 AM, 09/06 but nothing further - Pleasant confusion, cooperative w/ care at present. Alert to person but not time/event (4) Closed right hip fracture: Plan: as above, PT/OT consulted --> snf recommended, referrals sent (5) Hyponatremia: Plan: Na 133-135, TSH wnl. - Na 128 on 09/03, did get a dose of lasix 20mg PO x 1 - Urine na 33, urine osm 469 initially - Suspect combination of inadequate pain control/increased ADH production/tramadol use (since d/c'd), as well as subsequent volume overload from IVF given w/ surgery - Repeat urine Na increased to >100, urine osm further increased - Resolved, Na 136 (6) Hypoxia: Plan: - post operatively had remained on supplemental o2 without ability to titrate off - ECHO obtained --+Murmur on exam, MODERATE , likely volume overload on CXR from IVF w/ surgery and lasix provided and has remained stable on room air - O2 ordered for overnight given hypoxia on overnight sleep study once off O2 -- has not been using - RSV/flu/covid negative 09/04 - Resolved-- remains stable on room air for days (7) GERD (gastroesophageal reflux disease): Plan: Chronic - continue pantoprazole 40mg PO daily -- recently placed on lansoprazole 30mg for a "burning in her throat" that she had complained about at night. Also on levocetirizine for allergic rhinitis symptoms - Continue protonix/zyrtec while inpatient - No increased reflux reported (8) B12 deficiency: Plan: - checked due to dementia, prior lows in system - low normal 235-- IM replacement while inpatient x 2 doses, switched to PO supplementation as above and would continue at discharge (9) Vitamin D deficiency: Plan: - checked due to fracture, low at 22 - replacement ordered -- would continue at discharge as well (10) Diabetes mellitus, type 2: Plan: - A1c 7.1 most recently (prior 6.9 in 2019) - NOT on any medications at home, per PCP notes, diet controlled - BSGs acceptable -- f/u PCP at discharge Of note, error on BSG 09/05 afternoon to 350s, repeat 105 , 122 and suspect not cleaned the meter and has remained stable as all values have been stable since that time without need for increased insulin coverage Will reduce finger stick glucose to reduce delirium, glucose generally well controlled. Start metformin. (11) Aortic stenosis: Plan: - on exam, echo obtained given fall however denied symptoms of syn cope/angina/dyspnea however has dementia at baseline - mild volume overload post operatively - f/u with ECHO in 1-2 years as outpt (12) Elevated LFTs: Plan: Resolved Plan VTE prophylaxis -Lovenox Diet - to help better nutrition will liberalize diet to regular Disposition - medically stable for discharge pending placement this time Admission and Anticipated Discharge Date Admission Date: September 01, 2022 Subjective Patient remains orientated to self only. Unaware of why she is in hospital even after attempting to reorientate her she forgets after a few minutes. Pulling her Link catheter when I entered the room. Review of Systems Review of Systems: All systems reviewed & are unremarkable except as noted in Subjective Physical Exam Constitutional: WD/WN, vitals as above Respiratory: normal respiratory effort, lungs clear to auscultation Cardiovascular: Rate/Rhythm: regular rate and regular rhythm Psychiatric: Orientation: alert and oriented to person; + not oriented to place and + not oriented to time Results & Data Results & Data ([facility]) Vital Signs (Past 12 Hours) Vital Signs Temp Pulse Resp BP Pulse Ox O2 Del Method 09/11/22 15:31 36.9 C 78 20 136/76 97 Room Air 09/11/22 09:27 Room Air 09/11/22 07:30 36.7 C 67 20 118/70 96 Room Air PG Care Time/CCT Total # of Minutes Spent Total Time Spent with Patient: Total time spent is greater than 50% in coordination of care (as documented) at patient's floor/unit and/or counseling patient: Coding Level of Care Code 36175 Subseq Hosp Care Lvl 1 Diagnoses Fracture, intertrochanteric, right femur S72.141A C. difficile diarrhea A04.72 Dementia F03.B11 Dementia behavioral or psychological symptom: with agitation Dementia severity: moderate Dementia type: unspecified type Closed right hip fracture S72.001A Hyponatremia E87.1 Hypoxia R09.02 GERD (gastroesophageal reflux disease) K21.9 B12 deficiency E53.8 Vitamin D deficiency E55.9 Diabetes mellitus, type 2 E11.9 Aortic stenosis I35.0 Elevated LFTs R79.89 (1) Dementia Dementia behavioral or psychological symptom: with agitation Dementia severity: moderate Dementia type: unspecified type Qualified Code(s): F03.B11 - Unspecified dementia, moderate, with agitation
[2022-09-11] MEDS ORDERED: metFORMIN HCL ER 500 MG TABCR PO SCH (21:00)
[2022-09-12] MEDS: RASPBERRY SYRUP 5 ML UDP PO SCH (05:53)
[2022-09-12] MEDS: VANCOMYCIN HCL 125 MG/2.5ML SOLN PO SCH (05:53)
--- NOTE | 2022-09-12 08:39 | Hospitalist Progress Note ---
Date of Service September 12, 2022 Assessment & Plan (1) Fracture, intertrochanteric, right femur: Plan: POD #10 s/p Right proximal femur intertrochanteric fracture closed reduction and internal fixation with trochanteric entry cephalomedullary fixation nail (Right) - Santi Mclain MD on 09/02. - Will need repeat xrays at 6 weeks - Pain control -- scheduled tylenol given not given days past, oxycodone for breakthrough (may have been causing constipation despite cdiff?) - PT/OT consulted -- SNF planned when bed available - DVT ppx -- Lovenox SQ while inpatient but planning ASA 81mg BID at d/c for compliance per ortho recs Remove Saha catheter 09/11 Messaged CM as notes from Thursday. [facility] to be able to take patient for short term rehab. Therapy notes updated/auth faxed and last note indicates awaiting determination --> insurance closed today but if auth received over weekend [facility] (2) C. difficile diarrhea: Plan: - Episode diarrhea x 3 after multiple days as inpatient - Isolation precautions ordered - Started Vanco 125mg PO QID x 10 days on 09/08 -- will need to complete course at discharge, at least 10 days. can consider extending to 14 days (3) Dementia: Plan: Patient was previously on medication for dementia. Presently is not taking anything. - Prior on risperdal at home per PCP notes, however was d/c'd as stated made her more agitated - suspect hospital delirium on top of patient with dementia - Prior B12 level in 200s in summer w/ PC--> Repeat level B12 low normal at 235 and given IM x 2, transitioned to PO and continue at d/c - B1 pending, started empiric thiamine -- consider continue at d/c - TSH wnl - Frequent orientation, Avoidance of potentially delirium-inducing agents - benzodiazepines Zyprexa overnight for agitation/confusion 09/02-09/03 w/ b/l soft mitts, since discontinued. Seroquel low dose 12.5mg given 09/04 AM, 09/06 but nothing further 09/12- Pleasant confusion, cooperative w/ care at present. Alert to person but not time/event (4) Closed right hip fracture: Plan: as above, PT/OT consulted --> snf recommended, referrals sent (5) Hyponatremia: Plan: Na 133-135, TSH wnl. - Na 128 on 09/03, did get a dose of lasix 20mg PO x 1 - Urine na 33, urine osm 469 initially - Suspect combination of inadequate pain control/increased ADH production/tramadol use (since d/c'd), as well as subsequent volume overload from IVF given w/ surgery - Repeat urine Na increased to >100, urine osm further increased - Resolved, Na 136 on repeat x 2 (6) Hypoxia: Plan: - post operatively had remained on supplemental o2 without ability to titrate off - ECHO obtained --+Murmur on exam, MODERATE , likely volume overload on CXR from IVF w/ surgery and lasix provided and has remained stable on room air - O2 ordered for overnight given hypoxia on overnight sleep study once off O2 -- has not been using - RSV/flu/covid negative 09/04 - Resolved-- remains stable on room air for days (7) GERD (gastroesophageal reflux disease): Plan: Chronic - continue pantoprazole 40mg PO daily -- recently placed on lansoprazole 30mg for a "burning in her throat" that she had complained about at night. Also on levocetirizine for allergic rhinitis symptoms - Continue protonix/zyrtec while inpatient - No increased reflux reported (8) B12 deficiency: Plan: - checked due to dementia, prior lows in system - low normal 235-- IM replacement while inpatient x 2 doses, --> switched to PO supplementation as above and would continue at discharge (9) Vitamin D deficiency: Plan: - checked due to fracture, low at 22 - replacement ordered -- would continue at discharge as well (10) Diabetes mellitus, type 2: Plan: - A1c 7.1 most recently (prior 6.9 in 2019) - NOT on any medications at home, per PCP notes, diet controlled - BSGs acceptable -- f/u PCP at discharge Of note, error on BSG 09/05 afternoon to 350s, repeat 105 , 122 and suspect not cleaned the meter and has remained stable as all values have been stable since that time without need for increased insulin coverage Will reduce finger stick glucose to reduce delirium, glucose generally well controlled. Started metformin once daily -- would continue at d/c (11) Aortic stenosis: Plan: - on exam, echo obtained given fall however denied symptoms of syncope/angina/dyspnea however has dementia at baseline - mild volume overload post operatively - f/u with ECHO in 1-2 years as outpt (12) Elevated LFTs: Plan: Resolved Plan VTE prophylaxis -Lovenox Diet - to help better nutrition will liberalize diet to regular Disposition - medically stable for discharge pending placement this time possible d/c to [facility] tomorrow if insurance authorization received Admission and Anticipated Discharge Date Admission Date: September 01, 2022 Subjective eval this morning, no issues. BM pudding consistency, not frequent like 3 days ago. eating/drinking, worked with therapy but not doing as much as day prior awaiting rehab -- [facility] once insurance auth received, closed today and to follow -- possible tomorrow. Review of Systems Review of Systems: All systems reviewed & are unremarkable except as noted in HPI & below Physical Exam Physical Exam: General: WD elderly female resting comfortable upon entry, NAD, HEENT: head normocephalic, mm improved from prior Resp: diminished in the bases, bibasilar crackles improved, on room air CV: RRR, +3/6 systolic murmur, calves nontender, pulses palpable, cap refill wnl GI: +BS, SOFT, NONTENDER, MSK/Neuro: follows commands as able, no slurred speech/facial droop dressing to RIGHT hip c/d/i, ice pack in place, tender to palpation along dressing (less tender), compartments supple, NVI no facial droop/focal deficit Psych: alert to person, not place/time, dementia at baseline, pleasant/cooperative Results & Data Results & Data ([facility]) Vital Signs (Past 12 Hours) Vital Signs Temp Pulse Resp BP Pulse Ox O2 Del Method 09/11/22 23:46 36.7 C 87 14 101/62 96 Room Air 09/11/22 20:50 Room Air Laboratory Results 09/12/22 09/11/22 09/11/22 Range/Units 08:30 17:05 12:23 POC Glucose 120 H 114 H 123 H (70-99) mg/dl PG Care Time/CCT Total # of Minutes Spent Total Time Spent with Patient: Total time spent is greater than 50% in coordination of care (as documented) at patient's floor/unit and/or counseling patient: Coding Level of Care Code 13077 Subseq Hosp Care Lvl 2 Diagnoses Fracture, intertrochanteric, right femur S72.141A C. difficile diarrhea A04.72 Dementia F03.B11 Dementia behavioral or psychological symptom: with agitation Dementia severity: moderate Dementia type: unspecified type Closed right hip fracture S72.001A Hyponatremia E87.1 Hypoxia R09.02 GERD (gastroesophageal reflux disease) K21.9 B12 deficiency E53.8 Vitamin D deficiency E55.9 Diabetes mellitus, type 2 E11.9 Aortic stenosis I35.0 Elevated LFTs R79.89 (1) Dementia Dementia behavioral or psychological symptom: with agitation Dementia severity: moderate Dementia type: unspecified type Qualified Code(s): F03.B11 - Unspecified dementia, moderate, with agitation
[2022-09-12] MEDS: PANTOprazole 40 MG TAB PO SCH (09:28)
[2022-09-12] MEDS: CHOLECALCIFEROL 1,000 UNITS 25 MCG TAB PO SCH (09:28)
[2022-09-12] MEDS: ACETAMINOPHEN 500 MG TAB PO SCH (09:32)
[2022-09-12] MEDS: CYANOCOBALAMIN (B-12) 500 MCG TABLET PO SCH (09:33)
[2022-09-12] MEDS: CETIRIZINE HCL 10 MG TABLET PO SCH (09:33)
[2022-09-12] MEDS: ENOXAPARIN INJ 40 MG/0.4 ML SYR SQ SCH (09:34)
[2022-09-12] MEDS: DICLOFENAC SOD 1% GEL 100 GM TUBE EXT SCH (09:34)
--- NOTE | 2022-09-12 12:20 | Discharge Summary ---
Date of Service September 12, 2022 Admission HPI Per Admitting Provider Lorraine Hitchcock is an 87yo female with history of CKD, DM, HLP and Dementia presenting with right hip fracture. Patient lives with her who provides most of the history. They were getting out of the car today and patient lost her balance and fell onto her right hip. She was having significant discomfort. No LOC or trauma to the head or neck. No additional symptoms - patient specifically denies chest pain, cough, SOB or abdominal pain. In the ER she is afebrile, hypertensive otherwise HD stable. X-ray of the right hip confirms acute mildly distracted intertrochanteric fracture Pain is presently well controlled. ER Course: Toradol, Ativan, Tylenol, Tramadol Admission Exam Per Admitting Provider General: patient resting comfortably, NAD, non-toxic in appearance, pleasantly demented Skin: warm, dry, intact, no rashes or lesions, no bruising HEENT: NC/AT, PERRL, EOMI, anicteric sclera, conjunctiva without injection, external ear normal to inspection and nontender, nares patent, moist mucus membranes, dentition intact, no oropharyngeal lesions, neck supple, trachea midline, no LAD, no thyromegaly, no JVD Heart: +S1/S2, regular, 3/6 ADAN at right 2nd ICS with radiation across precordium Lungs: equal air entry bilaterally, no rales/rhonchi/wheezes Abd: +BS, soft, NT/ND, no masses/organomegaly/ascites Ext: warm, 2+ pulses in UE/LE bilaterally, no clubbing/cyanosis or edema Neuro: moving all extremities, speech clear, no facial droop Principal Diagnosis Hip Fracture, Cdiff Discharge Exam General: WD elderly female resting comfortable upon entry, NAD, HEENT: head normocephalic, mm improved from prior Resp: diminished in the bases, bibasilar crackles improved, on room air CV: RRR, +3/6 systolic murmur, calves nontender, pulses palpable, cap refill wnl GI: +BS, SOFT, NONTENDER, MSK/Neuro: follows commands as able, no slurred speech/facial droop dressing to RIGHT hip c/d/i, ice pack in place, tender to palpation along dressing (less tender), compartments supple, NVI no facial droop/focal deficit Psych: alert to person, not place/time, dementia at baseline, pleasant/cooperative Discharge Data Allergies Allergy/AdvReac Type Severity Reaction Status Date / Time hydromorphone AdvReac Mild 0 Unverified 09/01/22 19:28 morphine AdvReac Mild HALUCINATES Verified 09/01/22 19:28 Consultations 09/01/22 20:37 ED Decision to Admit Stat 09/02/22 00:12 Consult Orthopedic Surgery Routine Procedures Performed Operation Date: 09/02/22 08:20 Actual Procedures p Right Hip Short Intramedullary Nailing(Right) - Santi Mclain MD Ordered Studies Hip/Pelvis X-Ray 09/01/22 18:59 XR hip RT 2V w pelvis CLINICAL HISTORY: Right hip pain following fall. COMPARISON: CT of the abdomen and pelvis June 24, 2014. FINDINGS: Sacroiliac joints and symphysis pubis are intact. Postoperative findings within the pelvis are incidentally noted. There is an acute mildly distracted intertrochanteric fracture of the right femur. No additional acute fractures are identified on this exam. IMPRESSION: Acute mildly distracted intertrochanteric fracture of the right femur. ACT 112: Negative or not required by law. Electronically signed by: Malik Kim M.D. 09/01/2022 8:21 PM Chest X-Ray 09/02/22 07:18 XR chest 1V portable HISTORY: Fall with right hip fracture. pre-op COMPARISON: Chest 10/28/2018. FINDINGS: There are low lung volumes. Mild interstitial thickening, unchanged. This is likely chronic. Left basilar linear densities favor subsegmental atelectasis or scarring. Otherwise, no focal lung consolidations to suggest a pneumonia. No evidence for pulmonary edema. The heart is top normal in size. There are calcifications within the aortic knob. No acute fractures identified. IMPRESSION: Mild chronic interstitial thickening, unchanged. Otherwise, no acute process within the chest. ACT 112: Negative or not required by law. Electronically signed by: Dmitri Serrato M.D. 09/02/2022 9:52 AM Hip X-Ray 09/02/22 11:00 FL hip RT 2-3V CLINICAL HISTORY: RT TROCH NAIL TECHNIQUE: 5 views were obtained with the C-arm in the OR with the above procedure. Total fluoroscopy time was 59 seconds. Comparison: None available at the time of this dictation. FINDINGS/IMPRESSION: Intraoperative images were obtained of right hip trochanteric nail placement. Please correlate with intraoperative fluoroscopy and operative report. ACT 112: Negative or not required by law. Electronically signed by: Wes Herron M.D. 09/02/2022 1:13 PM Hip X-Ray 09/02/22 14:07 XR hip RT min 2V CLINICAL HISTORY: Post-Operative implant position COMPARISON STUDY: Right hip 09/01/2022. FINDINGS: Status post internal fixation of a right hip fracture with a proximal intramedullary femoral katerin and interlocking femoral neck pin. The hardware appears intact. Alignment is near-anatomic. Skin main are in place. IMPRESSION: Status post internal fixation of a right hip fracture. The hardware appears intact. ACT 112: Negative or not required by law. Electronically signed by: Dmitri Serrato M.D. 09/02/2022 3:31 PM Chest X-Ray 09/03/22 09:23 XR chest 1V portable CLINICAL HISTORY: hypoxia, eval volume overload TECHNIQUE: Single frontal radiograph of the chest was obtained. Comparison: Comparison is made to chest radiograph 09/02/2022 FINDINGS: No lines and tubes are seen. Calcified aortic knob is seen. Reticular interstitial opacities are seen. Trace left pleural effusion is seen. IMPRESSION: Trace left pleural effusion. Interstitial thickening is seen. ACT 112: Negative or not required by law. Electronically signed by: Wes Herron M.D. 09/03/2022 11:13 AM KUB X-Ray 09/03/22 11:56 KUB CLINICAL HISTORY: hx SBO d/t adhesions, no BM x 3 days, eval stool COMPARISON STUDY: CT of the abdomen and pelvis June 24, 2014. Abdominal series October 28, 2018. FINDINGS: Surgical clips, bowel anastomoses, cholecystectomy clips and a right femoral internal fixation are incidentally noted. The bowel gas pattern is normal. There is no evidence for a bowel obstruction. Amount of stool is within normal limits. [id number] amount stool within the colon and rectum is present. No evidence for free air on this supine exam. Left pelvic calcifications are unchanged and favor phleboliths. IMPRESSION: 1. No evidence for a bowel obstruction. 2. Amount of stool within normal limits. ACT 112: Negative or not required by law. Electronically signed by: Malik Kim M.D. 09/03/2022 1:07 PM 09/03/2022 ECHOCARDIOGRAM The study was technically adequate. Moderate aortic valve stenosis Chest X-Ray 09/04/22 06:00 XR chest 2V PA/lateral CLINICAL HISTORY: f/u volume overload TECHNIQUE: 2 views of the chest were obtained. Comparison: Comparison is made to chest radiograph 09/03/2022 FINDINGS: No lines and tubes are seen. The cardiomediastinal silhouette is stable. Prominence and cephalization of the vasculature is seen. Small left pleural effusion is seen. IMPRESSION: 1. Mild pulmonary edema. This is somewhat increased from prior exam. 2. Small left pleural effusion, stable. ACT 112: Negative or not required by law. Electronically signed by: Wes Herron M.D. 09/04/2022 8:44 AM Knee X-Ray 09/05/22 09:51 XR knee LT 1 or 2V routine CLINICAL HISTORY: s/p fall, eval fracture TECHNIQUE: 2 views of the left knee were obtained. Comparison: None available at the time of this dictation. FINDINGS: There is no evidence of an acute fracture. Degenerative changes are seen in the knee joint. No joint effusion is seen. No soft tissue abnormality is seen. IMPRESSION: No evidence of acute osseous injury. ACT 112: Negative or not required by law. Electronically signed by: Wes Herron M.D. 09/05/2022 11:09 AM Ankle X-Ray 09/05/22 09:52 XR ankle LT 2V CLINICAL HISTORY: Fall. Left ankle pain. COMPARISON STUDY: None. FINDINGS: No acute fracture or dislocation within the left ankle. No significant soft tissue swelling. No radiopaque foreign bodies. The bones are osteopenic. IMPRESSION: No acute fracture or dislocation within the left ankle. ACT 112: Negative or not required by law. Electronically signed by: Dmitri Serrato M.D. 09/05/2022 2:49 PM Chest X-Ray 09/05/22 14:04 SINGLE VIEW CHEST CLINICAL HISTORY: Fever. FINDINGS: An AP, portable, upright chest radiograph is compared to study dated 09/04/2022. The cardiomediastinal silhouette is top normal for projection noting atherosclerotic calcification of the thoracic aorta. Chronic interstitial thickening is similar to previous. There is mild bibasilar scarring/atelectasis. No airspace consolidation or large pleural effusion is identified. No pneumothorax is seen. The skeletal structures are osteopenic. The bony thorax is grossly intact. IMPRESSION: No acute cardiopulmonary abnormality. ACT 112: Negative or not required by law. Electronically signed by: Israel Ybarra M.D. 09/05/2022 3:10 PM Hospital Course (1) Fracture, intertrochanteric, right femur: POD #10 s/p Right proximal femur intertrochanteric fracture closed reduction and internal fixation with trochanteric entry cephalomedullary fixation nail (Right) - Santi Mclain MD on 09/02. - Will need repeat xrays at 6 weeks - Pain control -- scheduled tylenol given not given days past, well controlled oxycodone for breakthrough (may have been causing constipation despite cdiff?) - PT/OT consulted -- [facility] when bed available - DVT ppx -- Lovenox SQ while inpatient but planning ASA 81mg BID at d/c for compliance per ortho recs Remove Saha catheter 09/11, no issues since Messaged CM as notes from Thursday. [facility] to be able to take patient for short term rehab. Therapy notes updated/auth faxed and last note indicates awaiting determination --> insurance closed today but if auth received over weekend [facility] able [facility] patient. They are to be able to take back this afternoon. CM arranging transport (2) C. difficile diarrhea: - Episode diarrhea x 3 after multiple days as inpatient. diarrhea has slowed, more formed - Isolation precautions ordered - Started Vanco 125mg PO QID x 10 days on 09/08 -- continued PO Vancomycin QID to complete full 10 days at discharge (3) Dementia: Patient was previously on medication for dementia. Presently is not taking anything. - Prior on risperdal at home per PCP notes, however was d/c'd as stated made her more agitated - suspect hospital delirium on top of patient with dementia - Prior B12 level in 200s in summer w/ --> Repeat level B12 low normal at 235 and given IM x 2, transitioned to PO and continue at d/c - B1 pending, started empiric thiamine -- consider continue at d/c - TSH wnl - Frequent orientation, Avoidance of potentially delirium-inducing agents - benzodiazepines Zyprexa overnight for agitation/confusion 09/02-09/03 w/ b/l soft mitts, since discontinued. Seroquel low dose 12.5mg given 09/04 AM, 09/06 but nothing further 09/12 - Pleasant confusion, cooperative w/ care at present. Alert to person but not time/event At baseline. Continue B12 supplementation at d/c and scheduled tylenol for pain control to prevent worsening confusion at rehab (4) Closed right hip fracture: as above, PT/OT consulted --> snf recommended, [facility] planned (5) Hyponatremia: Na 133-135, TSH wnl. - Na 128 on 09/03, did get a dose of lasix 20mg PO x 1 - Urine na 33, urine osm 469 initially - Suspect combination of inadequate pain control/increased ADH production/tramadol use (since /'d), as well as subsequent volume overload from IVF given w/ surgery - Repeat urine Na increased to >100, urine osm further increased - Resolved, Na 136 on repeat x 2 (6) Hypoxia: - post operatively had remained on supplemental o2 without ability to titrate off - ECHO obtained --+Murmur on exam, MODERATE , likely volume overload on CXR from IVF w/ surgery and lasix provided and has remained stable on room air - O2 ordered for overnight given hypoxia on overnight sleep study once off O2 -- has not been using - RSV/flu/covid negative 09/04 - Resolved-- remains stable on room air for days (7) GERD (gastroesophageal reflux disease): Chronic - continue pantoprazole 40mg PO daily -- recently placed on lansoprazole 30mg for a "burning in her throat" that she had complained about at night. Also on levocetirizine for allergic rhinitis symptoms - Continue protonix/zyrtec while inpatient, home meds at d/c - No increased reflux reported (8) B12 deficiency: - checked due to dementia, prior lows in system - low normal 235-- IM replacement while inpatient x 2 doses, --> switched to PO supplementation as above and continued at discharge (9) Vitamin D deficiency: - checked due to fracture, low at 22 - replacement ordered -- continued at discharge as well Dexa scan rec'd outpatient if not done recently (10) Diabetes mellitus, type 2: - A1c 7.1 most recently (prior 6.9 in 2019) - NOT on any medications at home, per PCP notes, diet controlled - BSGs acceptable -- f/u PCP at discharge Of note, error on BSG 09/05 afternoon to 350s, repeat 105 , 122 and suspect not cleaned the meter and has remained stable as all values have been stable since that time without need for increased insulin coverage reduced finger stick glucose to reduce delirium, glucose generally well controlled. Started metformin once daily -- continued at d/c Outpatient PCP follow up (11) Aortic stenosis: - on exam, echo obtained given fall however denied symptoms of syncope/angina/dyspnea however has dementia at baseline - mild volume overload post operatively, euvolemic currently on exam - f/u with ECHO in 1-2 years as outpt (12) Elevated LFTs: Resolved on repeat Plan VTE prophylaxis -Lovenox SQ inpatient, ASA 81mg BID at d/c for compliance per ortho notes D/c to [facility] when bed/transport available Outpatient f/u ortho, repeat imaging 6 weeks from fracture Total Time Total Time Spent Total Time Spent (In Minutes): 60 Discharge Plan Discharge Items Patient Disposition: Transfer Inpatient Rehab Fac Reason For Visit: RIGHT HIP FRACTURE Discharge Diagnosis: Hip Fracture Goals: You have been hospitalized for an urgent problem which required surgery. During your stay at [facility], we have made an effort to correct the problem that brought you to the hospital while keeping you as comfortable as possible. Surgery and medications were used to bring your condition under control and your discharge instructions will include directions for any medications you should take after leaving the hospital. Please make sure to follow the advice of your surgeon regarding follow up with the surgeon and with your primary care provider. Activity: As commented below Non-emergency contact: Primary Care Provider and Surgeon Call non-emergency contact if: you have any medication questions, your symptoms worsen and your pain is not controlled Follow-up/Referrals: Ele Albright DO [Primary Care Provider] - Santi Mclain MD [Surgeon] - Diet: Regular Addtl Attending Provider Instructions: You have been hospitalized for a fall/hip fracture. Orthopedics was consulted and you underwent repair. Electrolyte issues likely related to medications were corrected and you have remained stable on repeat for several days. You should continue aspirin 81mg twice daily for blood clot prevention. We also checked a Vitamin D level and this was low and you were started on replacement. You also had a low normal B12 level and this was replacement and you have this to continue at discharge. You were also found to be diabetic but sugars well controlled. We started low dose metformin and you will continue this at discharge. Unfortunately you had diarrhea and we checked you for cdiff and this was positive. You have been started on treatment with oral vancomycin four times daily and this will be continue at discharge to complete a 10 day course. Please follow up with your primary care in the next 7-10 days to monitor your progress. I heard a murmur on exam and we checked an ultrasound of the heart which did show narrowing of the aortic valve which can be monitored on an outpatient basis with repeat ultrasound in 1-2 years. Please follow up with orthopedics at discharge as outlined to monitor your progress. They are recommending repeat imaging of the hip in 6 weeks from surgery. Please return to the ER with any chest pain/shortness of breath, uncontrolled pain, or for any other symptoms concerning for you. It has been a pleasure being a part of the medical team providing for you while you have been in the hospital. Take care! Addtl [place] Operator Provider Instructions: Orthopaedic Instructions after Hip Fracture Surgery: Please keep your wound clean and dry. Do not remove any of the main. [place] were removed at your follow-up appointment with orthopedic surgery. Please continue daily dressing changes until your follow-up appointment. If there is no drainage onto the dressing for total of 24 hours, you may shower after 5 days from surgery. Allow soap and water to run over the incision, no scrubbing, and pat dry. Do not submerse (sitting in bathtub, hot tub, jacuzzi, pool, etc) the wound for at least 3 weeks. You may bear weight on your lower extremities as tolerated. Please use the walker or as instructed by physical therapy. For pain control please use Tylenol as needed. You may also have a stronger pa in medication prescribed to you at discharge. You can also apply ice to the surgical site. To reduce the risk of dangerous blood clots please continue aspirin 81mg by mouth twice daily for blood clots recommended by your medical team. Orthopedic clinic follow-up should be in 2-3 weeks after surgery for repeat x- ray. Main can be removed at the orthopedic follow-up. If necessary, main can be removed by a nurse at home or at a nursing facility upon our order. Please contact the clinic. Pending Studies at Discharge: No Stand-Alone Forms: My [facility] Skilled Items Patient informed of condition?: Yes DNR: Yes Discharge Level of Care: Skilled Communicable Disease: Yes Discharge Prognosis: Stable Lines: None Urinary Catheter: No Medications and DC Order Prescriptions: New acetaminophen [Tylenol Extra Strength] 500 mg Tablet 1,000 mg PO Q8H Qty: 30 0RF diclofenac sodium [Voltaren Arthritis Pain] 1 % Gel 2 g EXT QID Qty: 100 0RF metformin 500 mg Tablet Extended Release 24 Hr 500 mg PO PM Qty: 30 0RF cholecalciferol (vitamin D3) 25 mcg (1,000 unit) Capsule 2,000 unit PO QAM Qty: 60 0RF cyanocobalamin (vitamin B-12) 1,000 mcg capsule 1,000 mcg PO DAILY Qty: 30 0RF vancomycin 125 mg capsule 125 mg PO QID 5 Days Qty: 20 0RF aspirin 81 mg capsule 81 mg PO BID 35 Days Qty: 70 0RF Continued levocetirizine [Xyzal] 5 mg tablet 5 mg PO DAILY Qty: 30 3RF lansoprazole [Prevacid] 30 mg capsule,delayed release(DR/EC) 30 mg PO DAILY Qty: 90 2RF Discharge Orders: Discharge Order (Routine); Ordered 09/12/22 Ordered By: Ashley Bhandari Admission Data Admit Date/Time: 09/01/22 20:50 Attending Provider: Kyle Black Admit Provider: Lydia Chang Primary Care Provider: Ele Albright Other Providers: Lydia Chang ; Santi Mclain ; [facility] ; [facility] ; [facility] ; [facility] Coding Level of Care Code D/C DAY MANAGEMENT >30 MINS Diagnoses Fracture, intertrochanteric, right femur S72.141A C. difficile diarrhea A04.72 Dementia F03.B11 Dementia behavioral or psychological symptom: with agitation Dementia severity: moderate Dementia type: unspecified type Closed right hip fracture S72.001A Hyponatremia E87.1 Hypoxia R09.02 GERD (gastroesophageal reflux disease) K21.9 B12 deficiency E53.8 Vitamin D deficiency E55.9 Diabetes mellitus, type 2 E11.9 Aortic stenosis I35.0 Elevated LFTs R79.89
== END 2022-09-12 16:05 | DRG 481 ==
LOC: ED 18:50 → 3E 20:50 → SUATTDRO 20:50 → 3E 23:18
DX: W19.XXXA Unspecified fall, initial encounter; N18.30 Chronic kidney disease, stage 3 unspecified; M80.051A Age-related osteoporosis with current pathological fracture, right femur, initial encounter for fracture; K21.9 Gastro-esophageal reflux disease without esophagitis; F03.B11 Unspecified dementia, moderate, with agitation; Z66 Do not resuscitate; A04.72 Enterocolitis due to Clostridium difficile, not specified as recurrent; R09.02 Hypoxemia; E87.1 Hypo-osmolality and hyponatremia; Z79.899 Other long term (current) drug therapy; R79.89 Other specified abnormal findings of blood chemistry; I35.0 Nonrheumatic aortic (valve) stenosis; R41.0 Disorientation, unspecified; Z88.5 Allergy status to narcotic agent; E11.22 Type 2 diabetes mellitus with diabetic chronic kidney disease; E53.8 Deficiency of other specified B group vitamins; Z87.891 Personal history of nicotine dependence; K58.1 Irritable bowel syndrome with constipation